=== PATIENT | female | born 1965 | race Caucasian/White ===

== ENCOUNTER 2020-07-22 21:11 | Emergency (ER) | payer BC, OTHER ==
[2020-07-22 22:27] LABS: Urine Blood 3+ (Negative); Urine Glucose Negative (Negative); Urine Protein 3+ (Negative); Urine Specific Gravity 1.025 (1.005-1.030)
[2020-07-22] MEDS ORDERED: CEFTRIAXONE/SWI 1gm 1 GM/10 ML SYR ONE (22:58)
[2020-07-22] MEDS ORDERED: MEPERIDINE HCL 25 MG/ML SYR ONE (22:58)
[2020-07-22 23:00] LABS: Urine RBC TNTC /HPF (NONE SEEN)
[2020-07-22 23:01] LABS: Urine Bacteria <20 /HPF (<20)
[2020-07-22 23:07] LABS: Absolute Lymphocytes (CBC) 1.5 K/uL (0.7-4.9); Basophils % 0.6 % (0-1.3); Hematocrit 38.6 % (36.0-45.0); Lymphocytes % 11.4 % (15.3-44.8); MPV 8.6 fL (7.6-11.3); RBC Red Blood Cell Count 4.91 M/uL (3.86-4.86)
[2020-07-22 23:13] LABS: Potassium 3.4 mmol/L (3.5-5.1)
--- NOTE | 2020-07-22 23:35 | EDPHYS ---
Physician Documentation [facility] Name: Esperanza Granger Age: 54 yrs Sex: Female : 1965 Arrival Date: 07/22/2020 Time: 21:12 Bed 5 Private MD: Ty Fuentes E ED Physician Abran Singh HPI: 07/22 23:30 This 54 yrs old Female presents to ER via Ambulatory with complaints of rn Urinary Problem. 23:30 The patient presents with urinary symptoms, dysuria, frequency, hematuria, urgency. rn Onset: The symptoms/episode began/occurred today. Modifying factors: The symptoms are alleviated by nothing, the symptoms are aggravated by urinating. Associated signs and symptoms: Pertinent positives: dysuria, hematuria, urinary frequency, Pertinent negatives: fever. Severity of symptoms: At their worst the symptoms were moderate, in the emergency department the symptoms are unchanged. The patient has experienced similar episodes in the past. The patient has not recently seen a physician. Denies trauma, not on blood thinners, no hx of kidney stones.. 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 Flu vaccine is not up to date. - Social history:: Smoking status: Patient denies any tobacco usage or history of. - Family history:: not pertinent. - Hospitalizations: : No recent hospitalization is reported. ROS: 23:30 Positive for urinary symptoms, urinary frequency, hematuria, burning with urination, rn Negative for bladder incontinence. 23:30 Constitutional: Negative for fever, chills, and weight loss, Eyes: Negative for injury, pain, redness, and discharge, Neck: Negative for injury, pain, and swelling, Cardiovascular: Negative for chest pain, palpitations, and edema, Respiratory: Negative for shortness of breath, cough, wheezing, and pleuritic chest pain, Abdomen/GI: + suprapubic pain, neg for vomiting Back: + low back pain MS/Extremity: Negative for injury and deformity, Skin: Negative for injury, rash, and discoloration, Neuro: Negative for headache, weakness, numbness, tingling, and seizure. Exam: 23:30 Constitutional: This is a well developed, well nourished patient who is awake, alert, rn mild discomfort Head/Face: Normocephalic, atraumatic. Cardiovascular: Regular rate and rhythm. No pulse deficits. Respiratory: No increased work of breathing, no retractions or nasal flaring. Abdomen/GI: soft, mild suprapubic tenderness, no rebound or masses Back: No spinal tenderness. No costovertebral tenderness. Full range of motion. Skin: Warm, dry MS/ Extremity: Pulses equal, no cyanosis. Neuro: Awake and alert, GCS 15, ambulatory to bathroom without assistance. Vital Signs: 21:29 BP 209 / 78; Pulse 84; Resp 16 S; Temp 98.5(TE); Pulse Ox 97% on R/A; Weight 104.78 kg ca1 (R); Height 5 ft. 3 in. (160.02 cm) (R); Pain 10/10; 07/23 00:09 BP 187 / 66; Pulse 80; Resp 18; Pulse Ox 98% ; ea 07/22 21:29 Body Mass Index 40.92 (104.78 kg, 160.02 cm) ca1 MDM: 07/22 22:21 Patient medically screened. rn 23:30 Differential diagnosis: kidney stone, urinary tract infection, pyelonephritis. Data rn reviewed: vital signs, nurses notes, lab test result(s), radiologic studies, CT scan, and as a result, I will discharge patient. Counseling: I had a detailed discussion with the patient and/or guardian regarding: the historical points, exam findings, and any diagnostic results supporting the discharge/admit diagnosis, lab results, radiology results, the need for outpatient follow up, to return to the emergency department if symptoms worsen or persist or if there are any questions or concerns that arise at home. Response to treatment: the patient's symptoms have mildly improved after treatment, and as a result, I will discharge patient. Special discussion: I discussed with the patient/guardian in detail that at this point there is no indication for admission to the hospital. It is understood, however, that if the symptoms persist or worsen the patient needs to return immediately for re-evaluation. 07/22 22:26 Order name: Urine Dipstick-Ancillary; Complete Time: 23:30 EDMS 07/22 22:26 Order name: Urine Culture rn 07/22 22:26 Order name: Urine Microscopic Only; Complete Time: 23:30 rn 07/22 22:26 Order name: CBC with Diff; Complete Time: 23:30 rn 07/22 22:26 Order name: Basic Metabolic Panel; Complete Time: 23:30 rn 07/22 22:26 Order name: Procalcitonin rn 07/22 22:26 Order name: Urine Dipstick-Ancillary (obtain specimen); Complete Time: 22:58 rn 07/22 22:26 Order name: IV Start; Complete Time: 22:54 rn 07/22 22:26 Order name: CT Stone Protocol rn 07/22 22:26 Order name: Blood Culture Adult (2) rn Administered Medications: 22:53 Drug: Rocephin (cefTRIAXone) 1 grams Route: IV; Rate: calculated rate; Site: right ea antecubital; 23:00 Follow up: Response: No adverse reaction; IV Status: Completed infusion ea 22:53 Drug: Demerol (meperidine) 25 mg Route: IVP; Site: right antecubital; ea 23:00 Follow up: Response: No adverse reaction 07/23 00:07 Drug: Demerol (meperidine) 25 mg Route: IVP; Site: right antecubital; ea 00:12 Follow up: Response: Medication administered at discharge. Disposition: 07/22/20 23:34 Discharged to Home. Impression: Urinary tract infection, site not specified, Cystitis, unspecified with hematuria. - Condition is Stable. - Discharge Instructions: Hematuria, Adult, Urinary Tract Infection, Adult. - Prescriptions for Pyridium 200 mg Oral Tablet - take 1 tablet by ORAL route every 8 hours for 3 days; 9 tablet. cefpodoxime 100 mg Oral Tablet - take 2 tablet by ORAL route every 12 hours for 10 days take with food; 40 tablet. - Medication Reconciliation Form, Thank You Letter, Antibiotic Education, Prescription Opioid Use, Work release form form. - Follow up: Private Physician; When: As needed; Reason: Recheck today's complaints, Re-evaluation by your physician. - Problem is new. - Symptoms have improved. Signatures: Dispatcher [employer] EDMD Abran Singh MD MD rn Antunez, Elena, RN RN ea Acob, Cheryl RN RN ca1 Corrections: (The following items were deleted from the chart) 00:12 07/22 23:34 07/22/2020 23:34 Discharged to Home. Impression: Urinary tract infection, ea site not specified; Cystitis, unspecified with hematuria. Condition is Stable. Forms are Medication Reconciliation Form, Thank You Letter, Antibiotic Education, Prescription Opioid Use. Follow up: Private Physician; When: As needed; Reason: Recheck today's complaints, Re-evaluation by your physician. Problem is new. Symptoms have improved. rn
--- NOTE | 2020-07-22 23:35 | ER ---
Nurse's Notes [facility] Name: Esperanza Granger Age: 54 yrs Sex: Female : 1965 Arrival Date: 07/22/2020 Time: 21:12 Bed 5 Private MD: Ty Fuentes E Diagnosis: Urinary tract infection, site not specified;Cystitis, unspecified with hematuria Presentation: 07/22 21:29 Chief complaint: Patient states: Suprapubic pain started around 1500 today. Burning ca1 with urination, urgency and frequency. In the evening, R lower back pain with blood in the urine. Coronavirus screen: Client denies travel out of the [place] in the last 14 days. At this time, the client does not indicate any symptoms associated with coronavirus-19. Ebola Screen: Patient negative for fever greater than or equal to 101.5 degrees Fahrenheit, and additional compatible Ebola Virus Disease symptoms Patient denies exposure to infectious person. Patient denies travel to an Ebola-affected area in the 21 days before illness onset. No symptoms or risks identified at this time. Initial Sepsis Screen: Does the patient meet any 2 criteria? No. Patient's initial sepsis screen is negative. Does the patient have a suspected source of infection? No. Patient's initial sepsis screen is negative. Risk Assessment: Do you want to hurt yourself or someone else? Patient reports no desire to harm self or others. Onset of symptoms was July 22, 2020. 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 Flu vaccine is not up to date. - Social history:: Smoking status: Patient denies any tobacco usage or history of. - Family history:: not pertinent. - Hospitalizations: : No recent hospitalization is reported. Screenin:54 Abuse screen: Denies threats or abuse. Nutritional screening: No deficits noted. ea Tuberculosis screening: No symptoms or risk factors identified. Fall Risk IV access (20 points). Assessment: 22:50 General: Appears uncomfortable, Behavior is calm, cooperative, appropriate for age. ea Pain:. Neuro: Level of Consciousness is awake, alert, obeys commands, Oriented to person, place, time. Cardiovascular: Patient's skin is warm and dry. Respiratory: Airway is patent Respiratory effort is even, unlabored, Respiratory pattern is regular, symmetrical. Derm: Skin is pink, warm \T\ dry. 07/23 00:11 Reassessment: Patient and/or family updated on plan of care and expected duration. Pain ea level reassessed. Patient is alert, oriented x 3, equal unlabored respirations, skin warm/dry/pink. Discharge instruction given to patient verbalized the understanding of instruction. Pt left ED ambulatory accompanied by family. Vital Signs: 07/22 21:29 BP 209 / 78; Pulse 84; Resp 16 S; Temp 98.5(TE); Pulse Ox 97% on R/A; Weight 104.78 kg ca1 (R); Height 5 ft. 3 in. (160.02 cm) (R); Pain 10/10; 07/23 00:09 BP 187 / 66; Pulse 80; Resp 18; Pulse Ox 98% ; ea 07/22 21:29 Body Mass Index 40.92 (104.78 kg, 160.02 cm) ca1 ED Course: 07/22 21:12 Patient arrived in ED. am4 21:13 Ty Fuentes MD is Private Physician. am4 21:32 Triage completed. ca1 21:33 Arm band placed on right wrist. ca1 22:21 Abran Singh MD is Attending Physician. rn 22:29 Mikki Medina RN is Primary Nurse. ea 22:45 Inserted saline lock: 20 gauge in right antecubital area, using aseptic technique. ea Blood collected. 22:50 Patient has correct armband on for positive identification. Bed in low position. Call ea light in reach. Side rails up X2. 23:05 CT Stone Protocol In Process Unspecified. EDMS 07/23 00:09 No provider procedures requiring assistance completed. IV discontinued, intact, ea bleeding controlled, No redness/swelling at site. Pressure dressing applied. Administered Medications: 07/22 22:53 Drug: Rocephin (cefTRIAXone) 1 grams Route: IV; Rate: calculated rate; Site: right ea antecubital; 23:00 Follow up: Response: No adverse reaction; IV Status: Completed infusion ea 22:53 Drug: Demerol (meperidine) 25 mg Route: IVP; Site: right antecubital; ea 23:00 Follow up: Response: No adverse reaction ea 07/23 00:07 Drug: Demerol (meperidine) 25 mg Route: IVP; Site: right antecubital; ea 00:12 Follow up: Response: Medication administered at discharge. ea Outcome: 07/22 23:34 Discharge ordered by . rn 07/23 00:10 Discharged to home ambulatory, with family. ea Condition: stable Discharge instructions given to patient, Instructed on discharge instructions, follow up and referral plans. medication usage, Demonstrated understanding of instructions, follow-up care, medications, Prescriptions given X 2. 00:12 Patient left the ED. ea Addendum: 07/26/2020 14:48 Addendum: Culture Results: Positive urine culture. Phone call Attempt #1 no answer, no h b voicemail. Signatures: Dispatcher [employer] EDAbran Pham MD MD rn Baxter, Heather RN Mikki Yeager RN Berenice Shane ea RN Stephenie Brown
[2020-07-23] MEDS ORDERED: MEPERIDINE HCL 25 MG/ML SYR ONE (00:24)
[2020-07-23 00:46] VITALS: TEMP 98.5
[2020-07-23 00:47] VITALS: BP 187/66; O2SAT 98
--- NOTE | 2020-07-23 10:42 | RAD REPORT ---
EXAM DESCRIPTION: CT - Stone Protocol - 07/23/2020 6:50 am CLINICAL HISTORY: 54 years Female UTI, hematuria, flank pain COMPARISON: None TECHNIQUE: Images were obtained in axial, sagittal, and coronal planes. This exam was performed according to our departmental dose-optimization program which includes use of Automated Exposure Control, adjustment of the mA and/or kV according to patient size and/or use o f iterative reconstruction technique. FINDINGS: Enlarged liver. Spleen is prominent in size measuring 12.4 cm in anterior posterior dimens ion. Unremarkable pancreas and adrenal glands bilaterally. No obstructing renal or ureteral calculi bilaterally. No hydronephrosis bilaterally. Right renal cyst . Punctate nonobstructing calcifications kidneys bilaterally. Incomplete bladder distention. Associat ed mucosal thickening and indistinct bladder margins. Consider cystitis. Appendix within normal limits. No bowel obstruction, perforation, or inflammation. Chronic changes lower lungs bilaterally. Enlarged heart. Diffuse bulging T11-12 osteophyte disc complex with associated mild narrowing of spinal canal. IMPRESSION: Punctate nonobstructing calcifications kidneys bilaterally with no hydronephrosis seen. No obstructing renal or ureteral calculi bilaterally. Incompletely bladder distention with associated mucosal thickening and indistinct margins suggesting cystitis. Electronically signed by: Heidi Ferguson MD 07/22/2020 11:19 PM CDT Due to temporary technical issues with the PACS/Fluency reporting system, reports are being signed by the in house radiologist without review as a courtesy to ensure prompt reporting. The interpreting r adiologist is fully responsible for the content of the report.
== END 2020-07-23 00:12 | disposition home or self-care (01) ==
LOC: ER 21:11
DX: N30.01 Acute cystitis with hematuria (principal)
CPT/HCPCS: 87040 ×2; 87088; 85025; 87086; 80048; 36415; 87077; 87186; 84145; 76377; 74176; 96375; 96374; 99284; J2175 ×2; J0696; 81003; 81015

== ENCOUNTER 2024-01-24 13:00 | Emergency (ER) | payer BC ==
--- OUTSIDE RECORDS SUMMARY | 2024-01-24 13:03 | XMS REPORT | Continuity of Care Document ---
Author Name Unknown Address [address] [facility] [address]. [address] [place] [address] [facility] thconnect Address [address] [facility]. 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 Name Role Phone Ty Leach Primary Care Physician [phone] KEENA GARCIA Attending Clinician Unavailable Haven Shelby RN Attending Clinician UnavailNabila Wan MD Attending Clinician [phone]- [phone] NABILA METZ Attending Clinician Vilma manning Nurse, Timothy Carrion [facility] Attending Clinician Unavailable 1, Se Xr Attending Clinician Unavailable Lu Honeycutt RN Attending Clinician Unavailable 2, Se Nm Attending Clinician Unavailable Keena Garcia MD Attending Clinician [phone] Doctor Unassigned, [place] Attending Clinician U navailable Therapy, Pcp Covid Infusion Attending Clinician Unavailable Tremayne Campoverde MD Attending Clinician TREMAYNE CAMPOVERDE Attending Clinician Unavailable Yolanda Phillips Attending Clinician Unavailable NABILA METZ Admitting Clinician Vilma Metz MD, Nabila Govea Admitting Clinician [phone] Yolanda Phillips Admitting Clinician Unavailable Physician, No Primary or Family Admitting Clinic pau Unavailable Payers Payer Name Policy Type Policy Number Effective Date Expirati on Date Source BCBS COMM [id number] 2023 00:00:00 Problems Condition Name Condition Details Condition Category Status Onset Date Resolution Date Last Treatment Date Treating Clinician Comments Source HTN (hypertens ion) HTN (hypertens ion) Disease Active 2023-02 00:00: 00 Izaiah Guan Pacemaker Pacemaker Disease Active 2023-02 00:00: 00 Izaiah Guan Renal cell carcinoma of right kidney Renal cell carcinoma of right kidney Disease Active 2023-02 00:00: 00 Izaiah Elizondo Epic Malignant neoplasm of right kidney Malignant neoplasm of right kidney Disease Active 2023-02 00:00: 00 Izaiah Guan Allergies, Adverse Reactions, Alerts Allergy Name Allergy Type Status Severity Reaction(s) Onset Date Inactive Date Treating Clinician Comments Source Oxycodon e-Acetam inophen Propensi ty to adverse reaction s Active 2023-02 00:00: 00 Makes pt sick Izaiah Guan No Known Drug Allergie s DA Active U 08-02 00:00: 00 [facility] No Known Drug Allergie s DA Active U 08-02 00:00: 00 [facility] NO KNOWN ALLERGIE S Drug Class Active [facility] ALLERGIE S NOT ON FILE SYSTEMIC Active [facility] ALLERGIE S NOT ON FILE SYSTEMIC Active [facility] NO KNOWN ALLERGIE S SYSTEMIC Active [facility] NO KNOWN ALLERGIE S SYSTEMIC Active [facility] NO KNOWN ALLERGIE S SYSTEMIC Active [facility] Social History Social Habit Start Date Stop Date Quantity Comments Source Gender identity 2023-10-03 14:30:44 Identifies as female gender (finding) Sylwia Guan ASSERTION Possible Sylwia Guan [facility] History of Social function 2023-12-28 00:00:00 2023-12-28 00:00:00 [facility] Alcoholic beverage intake 2023-12-04 00:00:00 2023-12-04 00:00:00 Ex-drinker (finding) [facility] Tobacco use and exposure 2023-11-08 00:00:00 2023-11-08 00:00:00 Smokeless tobacco non-user [facility] Sex Ass[birth year] At 1965 00:00:00 1965 00:00:00 [facility] Smoking Status Start Date Stop Date Source Unknown [facility] tobacco Izaiah [facility] Medications Ordered Medication Name Filled Medication Name Start Date Stop Date Current Medication? Ordering Clinician Indication Dosage Frequency Signature (SIG) Comments Components Source lidocaine (Lidoderm) 5 % patch lidocaine (Lidoderm) 5 % patch 2023-02 00:00: 00 Yes 1{patch } QD Apply 1 patch over 12 hours topically 1 time each day. Remove & discard patch within 12 hours or as directed by . Izaiah Eliz[facility] naloxone (Narcan) 4 mg/0.1 mL nasal spray naloxone (Narcan) 4 mg/0.1 mL nasal spray 2023-02 00:00: 00 01-04 23:59 :00 No 4mg Administer 1 spray into affected nostril(s) if needed for opioid reversal. May repeat every 2-3 minutes if needed, alternatin g nostrils, until medical assistance becomes available. Izaiah Eliz[facility] methocarbam ol (Robaxin) 750 MG tablet methocarbam ol (Robaxin) 750 MG tablet 2023-02 00:00: 00 01-18 23:59 :00 No 750mg [id number] 3D Take 1 tablet by mouth 3 times a day as needed for muscle spasms for up to 14 days. Tale one tablet 3 hours prior to surgery Izaiah Eliz[facility] HYDROcodone -acetaminop hen ([place]) 5-325 MG tablet HYDROcodone -acetaminop hen ([place]) 5-325 MG tablet 2023-02 00:00: 00 01-11 23:59 :00 No [id number] 1{tbl} Q6H Take 1 tablet by mouth every 6 hours if needed for severe pain (7-10) for up to 7 days. Izaiah Guan acetaminoph en (Tylenol) 500 MG tablet acetaminoph en (Tylenol) 500 MG tablet 2023-02 12:13: 29 Yes 1000mg Take 1,000 mg by mouth 1 time. Take morning of surgery Izaiah Guan gabapentin (Neurontin) capsule 200 mg gabapentin (Neurontin) capsule 200 mg 2023-02 09:00: 00 Yes 200mg Q.5D 200 mg, Oral, 2 times daily, First dose on Jeannette 12/28/23 at 0900 Izaiah Guan amLODIPine (Norvasc) tablet 10 mg amLODIPine (Norvasc) tablet 10 mg 2023-02 09:00: 00 Yes 10mg QD 10 mg, Oral, Daily, First dose on Jeannette 12/28/23 at 0900, On Unit Izaiah Guan alvimopan (Entereg) capsule 12 mg alvimopan (Entereg) capsule 12 mg 2023-02 09:00: 00 12-27 12:49 :57 No 12mg Q.5D 12 mg, Oral, 2 times daily, First dose on Jeannette 12/28/23 at 0900, For 3 days, On Unit, HOLD WHEN RETURN OF BOWEL FUNCTION Izaiah Guan traMADol (Ultram) tablet 50 mg traMADol (Ultram) tablet 50 mg 2023-02 08:26: 33 12-30 08:25 :33 No 50mg Q6H 50 mg, Oral, Every 6 hours PRN, severe pain (7-10), Starting on Jeannette 12/28/23 at 0826, For 3 days Izaiah Guan traMADol (Ultram) 50 MG tablet traMADol (Ultram) 50 MG tablet 2023-02 00:00: 00 Yes [id number] 50mg Q4H Take 1 tablet by mouth every 4 hours if needed for severe pain (7-10). Izaiah Guan Docusate Sodium (DSS) 100 MG capsule Docusate Sodium (DSS) 100 MG capsule 2023-02 00:00: 00 02-25 23:59 :00 No 100mg Q.5D Take 1 capsule by mouth in the morning and 1 capsule in the evening. Izaiah Guan atorvastati n (Lipitor) tablet 20 mg atorvastati n (Lipitor) tablet 20 mg 2023-02 21:00: 00 Yes 20mg 20 mg, Oral, Nightly, First dose on Mon12/27/23 at 2100, [facility] docusate sodium (Colace) capsule 100 mg docusate sodium (Colace) capsule 100 mg 2023-02 17:00: 00 Yes 100mg Q.5D 100 mg, Oral, 2 times daily, First dose on Mon12/27/23 at 1700, [facility] sennosides (Senokot) tablet 8.6 mg sennosides (Senokot) tablet 8.6 mg 2023-02 17:00: 00 01-02 16:59 :00 No 1{tbl} Q.5D 8.6 mg (1 tablet), Oral, 2 times daily, First dose on Mon12/27/23 at 1700, For 7 days, On Unit Izaiah Guan ceFAZolin (Ancef) 2 g in sterile water injection ceFAZolin (Ancef) 2 g in sterile water injection 2023-02 17:00: 00 12-27 08:48 :00 No 2g Q8H 2 g, Intravenou s, at 200 mL/hr, Administer over 6 Minutes, Every 8 hours, First dose (after last modificati on) on Mon12/27/23 at 1700, For 3 doses, Reconstitu te each vial with 10 mL sterile water for injection. (20 mL total needed) Prepare dose at bedside immediatel y prior to administra tion. Reconstitu tion: Shake immediatel y and vigorously . Withdraw entire contents of the 1st vial and give IV push slowly over specified time. Withdraw entire contents of the 2nd vial and give IV push slowly over specified time., Suspected Indication (Select all that apply): Surgical Prophylaxi s Izaiah Guan dextrose 10 % infusion 250 mL dextrose 10 % infusion 250 mL 2023-02 14:17: 43 Yes 250mL 250 mL, Intravenou s, at 999 mL/hr, As needed, Give 250 mL (25 gm) IV PRN for BG </= 50 mg/dL, Starting on Mon12/27/23 at 1417, Administer at rate 999 mL/hr Izaiah Guan sodium chloride (NS) 0.9 % flush 10 mL sodium chloride (NS) 0.9 % flush 10 mL 2023-02 14:13: 46 Yes 10mL 10 mL, Intravenou s, As needed, line care, For antibiotic flush to clear line, Starting on Mon12/27/23 at 1413, Changed NS 250 mL to NS flush per IV Fluid Conservati on Plan Izaiah Elizondo Epic heparin injection 5,000 Units heparin injection 5,000 Units 2023-02 14:00: 00 Yes 5000U Q.[id number] 3D 5,000 Units, Subcutaneo us, Every 8 hours scheduled, First dose on Mon12/27/23 at 1400, On Unit, Indication s: VTE Prophylaxi s Izaiah Guan gabapentin (Neurontin) capsule 300 mg gabapentin (Neurontin) capsule 300 mg 2023-02 14:00: 00 12-27 06:52 :18 No 300mg Q.[id number] 3D 300 mg, Oral, Every 8 hours scheduled, First dose on Mon12/27/23 at 1400, On Unit Izaiah Elizondo Epic acetaminoph en (Tylenol) solution 1,000 mg acetaminoph en (Tylenol) solution 1,000 mg 2023-02 13:15: 00 Yes 1000mg Q6H 1,000 mg, Oral, Every 6 hours, First dose on Mon12/27/23 at 1315, On Unit Izaiah Elizondo Epic sodium chloride (NS) 0.9 % flush 10 mL sodium chloride (NS) 0.9 % flush 10 mL 2023-02 13:15: 00 Yes 10mL Q12H 10 mL, Intravenou s, Every 12 hours, First dose on Mon12/27/23 at 1315, Phase II/On Unit, Administer at least once every 12 hours Izaiah Guan lactated Ringer's infusion lactated Ringer's infusion 2023-02 13:15: 00 Yes 100mL/h 100 mL/hr, Intravenou s, Continuous , Starting on Mon12/27/23 at 1315, [facility] oxybutynin (Ditropan) tablet 5 mg oxybutynin (Ditropan) tablet 5 mg 2023-02 13:15: 00 12-27 08:27 :25 No 5mg Q.[id number] 3D 5 mg, Oral, 3 times daily, First dose on Mon12/27/23 at 1315, [facility] hydrALAZINE injection 10 mg hydrALAZINE injection 10 mg 2023-02 13:10: 51 Yes 10mg Q4H [facility] hyoscyamine (Anaspaz,Le vsin) tablet 0.125 mg hyoscyamine (Anaspaz,Le vsin) tablet 0.125 mg 2023-02 13:10: 51 Yes .125mg Q4H [facility] glucagon injection 1 mg glucagon injection 1 mg 2023-02 13:10: 51 Yes 1mg [facility] sodium chloride (NS) 0.9 % flush 10 mL sodium chloride (NS) 0.9 % flush 10 mL 2023-02 13:10: 51 Yes 10mL [facility] HYDROmorpho ne (Dilaudid) injection 0.5 mg HYDROmorpho ne (Dilaudid) injection 0.5 mg 2023-02 11:08: 01 12-26 14:06 :32 No .5mg 0.5 mg, Intravenou s, Every 10 min PRN, severe pain (7-10), Starting on Mon12/27/23 at 1108, For 4 doses, Recovery (only), Hold for respirator y rate or 8 or less. [facility] lactated Ringer's infusion lactated Ringer's infusion 2023-02 07:15: 00 Yes 75mL/h 75 mL/hr, Intravenou s, Continuous , Starting on Mon12/27/23 at 0715, Preprocedu re, Anesthesia Pre-op Izaiah Guan methocarbam ol (Robaxin) 750 MG tablet methocarbam ol (Robaxin) 750 MG tablet 2023-02 00:00: 00 12-27 00:00 :00 No 750mg Take 1 tablet by mouth 1 time for 1 dose. Take 1 tablet 3 hours before surgery Izaiah Guan gabapentin (Neurontin) 600 MG tablet gabapentin (Neurontin) 600 MG tablet 2023-02 00:00: 00 12-27 00:00 :00 No 600mg QD Take 1 tablet by mouth 1 time each day for 1 dose. Take 1 tablet 3 hours before surgery Izaiah Guan celecoxib (CeleBREX) 200 MG capsule celecoxib (CeleBREX) 200 MG capsule 2023-02 00:00: 00 12-20 00:00 :00 No 200mg Take 1 capsule by mouth 1 time for 1 dose. Take 1 tablet 3 hours before surgery Izaiah Guan neomycin (Mycifradin ) 500 MG tablet neomycin (Mycifradin ) 500 MG tablet 2023-02 00:00: 00 12-18 23:59 :00 No 1000mg Q.[id number] 3D Take 2 tablets by mouth in the morning and 2 tablets at noon and 2 tablets in the evening. Do all this for 3 doses. Take 2 tablets at 4pm, 5pm and 10pm the day before surgery. Izaiah Guan metroNIDAZO LE (Flagyl) 500 MG tablet metroNIDAZO LE (Flagyl) 500 MG tablet 2023-02 00:00: 00 12-18 23:59 :00 No 500mg Q.[id number] 3D Take 1 tablet by mouth in the morning and 1 tablet at noon and 1 tablet in the evening. Do all this for 3 doses. Take 1 tablet at 4pm, 5pm and 10pm the day before before surgery.. Izaiah Guan technetium Tc-99m mertiatide (MAG3) radio-isoto pe injection 5 millicurie technetium Tc-99m mertiatide (MAG3) radio-isoto pe injection 5 millicurie 2023-02 12:30: 00 12-10 13:27 :00 No 5mCi 5 millicurie , Intravenou s, Once, On Mon12/11/23 at 1230, For 1 dose Izaiah Guan clobetasol (Temovate) 0.05 % cream clobetasol (Temovate) 0.05 % cream 11-01 00:00: 00 12-20 00:00 :00 No APPLY TOPICALLY TO THE AFFECTED AREA DAILY NEEDED Izaiah Guan lisinopril- hydroCHLORO thiazide 20-12.5 MG tablet lisinopril- hydroCHLORO thiazide 20-12.5 MG tablet 09-10 00:00: 00 12-27 00:00 :00 No 1{tbl} QD Take 1 tablet by mouth 1 time each day. Izaiah Guan Mounjaro 10 MG/0.5ML pen-injecto r Mounjaro 10 MG/0.5ML pen-injecto r 09-01 00:00: 00 Yes 10mg Q1W Inject 10 mg under the skin every 7 days. EVERY MONDAY Izaiah Guan Mounjaro 10 MG/0.5ML pen-injecto r Mounjaro 10 MG/0.5ML pen-injecto r 09-01 00:00: 00 12-20 00:00 :00 No Izaiah Guan casirivimab -imdevimab (REGEN-COV (EUA)) injection 1,200 mg 2020-02 17:30: 00 11-21 16:24 :00 No [id number] 1200mg [facility] amLODIPine (Norvasc) 10 MG tablet amLODIPine (Norvasc) 10 MG tablet 09-01 00:00: 00 Yes 1{tbl} QD Take 1 tablet by mouth 1 time each day. Izaiah Guan atorvastati n (Lipitor) 20 MG tablet atorvastati n (Lipitor) 20 MG tablet 09-01 00:00: 00 Yes 20mg QD Take 20 mg by mouth 1 time each day. Izaiah l Mikhail Epic Vital Signs Vital Name Observation Time Observation Value Comments Alisha meredith Systolic blood pressure 2024-01-05 09:41:00 137 mm[Hg] [facility] Diastolic blood pressure 2024-01-05 09:41:00 85 mm[Hg] [facility] Epic Heart rate 2024-01-05 09:41:00 75 /min Memor ial Mikhail Epic Body height 2024-01-05 09:41:00 160 cm Inocente rial Mikhail Epic Body weight 2024-01-05 09:41:00 94.348 kg Inocente rial [place] Epic BMI 2024-01-05 09:41:00 36.85 kg/m2 Inocente rial Mikhail Epic Oxygen saturation in Arterial blood by Pulse oximetry 2024-01-05 09:41:00 94 /min [facility] Systolic blood pressure 2024-01-05 09:41:00 137 mm[Hg] [facility] Diastolic blood pressure 2024-01-05 09:41:00 85 mm[Hg] [facility] Heart rate 2024-01-05 09:41:00 75 /min [facility] Body height 2024-01-05 09:41:00 160 cm Inocente riaalek [place] Epic Body weight 2024-01-05 09:41:00 94.348 kg Inocente Kunzann Epic BMI 2024-01-05 09:41:00 36.85 kg/m2 Inocente Kunzann Epic Oxygen saturation in Arterial blood by Pulse oximetry 2024-01-05 09:41:00 94 /min [facility] Heart rate 2023-12-28 07:40:16 61 /min Memor ial Mikhail Epic Respiratory rate 2023-12-28 07:40:16 17 /min [facility] Oxygen saturation in Arterial blood by Pulse oximetry 2023-12-28 07:40:16 94 /min [facility] Systolic blood pressure 2023-12-28 07:40:12 128 mm[Hg] [facility] Diastolic blood pressure 2023-12-28 07:40:12 52 mm[Hg] [facility] Body temperature 2023-12-28 07:38:58 36.61 Eloisa [facility] Heart rate 2023-12-28 07:40:16 61 /min Memor ial Mikhail Epic Respiratory rate 2023-12-28 07:40:16 17 /min [facility] Mikhail Epic Oxygen saturation in Arterial blood by Pulse oximetry 2023-12-28 07:40:16 94 /min Sylwia jones Epic Systolic blood pressure 2023-12-28 07:40:12 128 mm[Hg] Sylwia jones Epic Diastolic blood pressure 2023-12-28 07:40:12 52 mm[Hg] Sylwia jones Epic Body temperature 2023-12-28 07:38:58 36.61 Eloisa [facility] Epic Systolic blood pressure 2023-12-22 10:44:00 115 mm[Hg] [facility] Her jones Epic Diastolic blood pressure 2023-12-22 10:44:00 74 mm[Hg] [facility] Epic Heart rate 2023-12-22 10:44:00 72 /min Memor ial Mikhail Epic Body height 2023-12-22 10:44:00 160 cm Inocente rial Mikhail Epic Body weight 2023-12-22 10:44:00 92.08 kg Inocente rial Mikhail Epic BMI 2023-12-22 10:44:00 35.96 kg/m2 Inocente rial [place] Epic Systolic blood pressure 2023-12-22 10:44:00 115 mm[Hg] [facility] Her jones Epic Diastolic blood pressure 2023-12-22 10:44:00 74 mm[Hg] [facility] Her jones Epic Heart rate 2023-12-22 10:44:00 72 /min Memor ial Mikhail Epic Body height 2023-12-22 10:44:00 160 cm Inocente rial [place] Epic Body weight 2023-12-22 10:44:00 92.08 kg Inocente rial [place] Epic BMI 2023-12-22 10:44:00 35.96 kg/m2 Inocente rial Mikhail Epic Body height 2023-12-04 09:22:00 160 cm Inocente rial Mikhail Epic Body weight 2023-12-04 09:22:00 94.484 kg Inocente rial [place] Epic BMI 2023-12-04 09:22:00 36.90 kg/m2 Inocente rial [place] Epic Body height 2023-12-04 09:22:00 160 cm Inocente rial Mikhail Epic Body weight 2023-12-04 09:22:00 94.484 kg Inocente birgitl [facility] BMI 2023-12-04 09:22:00 36.90 kg/m2 Inocente laurie [facility] Body height 2023-11-08 11:39:00 160 cm Inocentesteff sullivan [facility] Body weight 2023-11-08 11:39:00 92.534 kg Inocentesteff sullivan [facility] BMI 2023-11-08 11:39:00 36.14 kg/m2 Inocente laurie [facility] Body height 2023-11-08 11:39:00 160 cm Inocente laurie [facility] Body weight 2023-11-08 11:39:00 92.534 kg Inocente [facility] BMI 2023-11-08 11:39:00 36.14 kg/m2 Inocente [facility] Diastolic blood pressure 2023-10-03 15:30:00 59 mm[Hg] [facility] Heart rate 2023-10-03 15:30:00 60 /min [facility] 2023-10-03 15:30:00 37.11 [facility] Respiratory rate 2023-10-03 15:30:00 17 /min [facility] Body height 2023-10-03 15:30:00 160 cm [facility] Body weight 2023-10-03 15:30:00 95.709 kg [facility] BMI 2023-10-03 15:30:00 37.38 kg/m2 [facility] Oxygen saturation in Arterial blood by Pulse oximetry 2023-10-03 15:30:00 98 /min [facility] Systolic blood pressure 2023-10-03 15:30:00 131 mm[Hg] [facility] Diastolic blood pressure 2023-10-03 15:30:00 59 mm[Hg] [facility] Heart rate 2023-10-03 15:30:00 60 /min Memor ial [facility] Body temperature 2023-10-03 15:30:00 37.11 [facility] Respiratory rate 2023-10-03 15:30:00 17 /min [facility] Body height 2023-10-03 15:30:00 160 cm [facility] Body weight 2023-10-03 15:30:00 95.709 kg [facility] BMI 2023-10-03 15:30:00 37.38 kg/m2 [facility] Oxygen saturation in Arterial blood by Pulse oximetry 2023-10-03 15:30:00 98 /min [facility] Systolic blood pressure 2023-10-03 15:30:00 131 mm[Hg] [facility] Systolic blood pressure 2020-11-21 16:42:00 105 mm[Hg] [facility] Diastolic blood pressure 2020-11-21 16:42:00 58 mm[Hg] [facility] Heart rate 2020-11-21 16:42:00 62 /min [facility] Body temperature 2020-11-21 16:42:00 37.17 Eloisa [facility] Oxygen saturation in Arterial blood by Pulse oximetry 2020-11-21 16:42:00 91 /min room [facility] Body height 2020-11-21 16:13:00 160 cm [facility] Body weight 2020-11-21 16:13:00 101.152 kg [facility] BMI 2020-11-21 16:13:00 39.50 kg/m2 [facility] Procedures Procedure Date / Time Performed Performing Clinician Source Comprehensive Metabolic Panel 2024-01-11 00:00:00 [facility] Complete Blood Count w/Diff and Platelet 2024-01-11 00:00:00 [facility] XR chest 2 views 2024-01-11 00:00:[address] [facility] [address] abdomen w and wo IV contrast 2024-01-11 00:00:00 [facility] NEPHRECTOMY, LAPAROSCOPIC 2024-01-02 08:30:00 Nabila Metz [facility] Complete Blood Count w/Diff and Platelet 2023-12-30 00:00:00 [facility] Basic Metabolic Panel 2023-12-30 00:00:00 [facility] BASIC METABOLIC PANEL 2023-12-28 05:43:00 [place], G angelica [facility] COMPLETE BLOOD COUNT W/DIFF AND PLATELET 2023-12-28 05:43:00 [facility] 2023-12-28 05:43:00 [facility] AUTOM[facility] DIFFERENTIAL 2023-12-28 05:43:00 [facility] BASIC METABOLIC PANEL 2023-12-27 15:54:00 Clay Metz [facility] HEMOGLOBIN AND HEMATOCRIT 2023-12-27 15:54:00 [facility] NEPHRECTOMY, LAPAROSCOPIC 2023-12-27 08:30:00 Nabila Metz [facility] NEPHRECTOMY, LAPAROSCOPIC 2023-12-27 08:30:00 Nabila Metz [facility] NEPHRECTOMY, LAPAROSCOPIC 2023-12-27 08:30:00 Nabila Metz [facility] NEPHRECTOMY, LAPAROSCOPIC 2023-12-27 08:30:00 [facility]PHRECTOMY, LAPAROSCOPIC 2023-12-27 08:30:00 [facility] NEPHRECTOMY, LAPAROSCOPIC 2023-12-27 08:30:00 [facility] LAPAROSCOPY RADICAL NEPHRECTOMY 2023-12-27 08:28:00 [facility] POC GLUCOSE UNSOLICITED RESULTS 2023-12-27 07:26:00 [facility] CHEST 2 VIEWS 2023-12-20 11:44:48 Nabila Metz [facility] NM kidney flow/function w diuretic 2023-12-11 00:00:00 [facility] NM kidney flow/function w diuretic 2023-12-04 00:00:00 [facility] Creatinine, Serum 2023-10-03 00:00:[address] [facility] Basic metabolic panel 2023-10-03 00:00:00 [facility] CBC and differential 2023-10-03 00:00:00 [facility] EXTERNAL PROVIDER RECORDS 2020-12-11 05:01:00 Doctor Unassigned, [place] [facility] CONSENT/REFUSAL FOR DIAGNOSIS AND TREATMENT 2020-11-21 05:01:00 Doctor Unassigned, [place] [facility] Tissue Examination [facility] Plan of Care Planned Activity Planned Date Details Comments Source Procedure 2024-01-26 00:00:00 POCT glucose [facility] Encounters Start Date/Time End Date/Time Encounter Type Admission Type Attending [facility] Care Facility Care Department Encounter ID Source 2023-11-16 09:33:22 Outpatient KEENA GARCIASE NEAL [id number] [facility] 2023 08:44:29 Outpatient KEENA GARCIASE NEAL [id number] [facility] 2023-12-18 00:00:00 2024-01-18 23:48:26 Orders Only [place] Shelby Michelle [place] [id number] Izaiah gaston [facility] 2024-01-11 11:30:00 2024-01-11 11:30:00 Office Visit Nabila Mezt [facility] [id number] Izaiah gaston [facility] 2024-01-11 11:17:21 2024-01-11 11:25:35 [id number] 2024-01-05 09:32:31 2024-01-05 10:01:22 [id number] 2024-01-05 09:40:00 2024-01-05 09:50:00 Office Visit Nabila Metz [id number] [facility] 2024-01-02 00:00:00 2024-01-03 15:49:05 Telephone Nabila Mezt [place] [id number] Izaiah Eliz[facility] 2023-12-27 06:28:00 2023-12-28 14:05:00 Inpatient Elective NABILA METZ MHESE MHESE [id number] [facility] 2023-12-27 06:28:00 2023-12-28 14:05:00 Hospital Encounter Nabila Metz [facility] 1.2.840.114 350.1.13.70 8.2.7.2.686 [id number] [facility] 10:45:51 2023-12-22 16:38:14 Outpatient MHEOUT M[facility]OUT [id number] [facility] 2023-12-22 10:36:17 2023-12-22 16:28:48 Outpatient NABILA METZ [facility] M[facility]OUT [id number] [facility] 2023-12-22 11:30:00 2023-12-22 11:40:00 Clinical Support Haven Shelby Nurse, [facility] Haven Shelby [place] [id number] 1.2.840.114 350.1.13.70 8.2.7.2.686 [id number] [facility]-22 10:50:00 2023-12-22 11:00:00 Office Visit Nabila Metz [facility] [id number] 1.2.840.114 350.1.13.70 8.2.7.2.686 [id number] [facility]23-12-20 11:33:14 2023-12-20 23:59:00 Outpatient Elective MHESE MHESE [id number] [facility] 2023-12-20 11:33:14 2023-12-20 23:59:00 Hospital Encounter 1, Se Xr [facility] 1.2.840.114 350.1.13.70 8.2.7.2.686 [id number] [facility] 2023-12-20 09:33:37 2023-12-20 13:18:29 Outpatient Elective MHESE ESE [id number] ESE 2023-12-18 00:00:00 2023-12-20 10:46:50 Telephone Nabila [facility] [id number] 1.2.840.114 350.1.13.70 8.2.7.2.686 [id number] [facility] 2023-12-20 00:00:00 2023-12-20 10:13:23 [facility] 1.2.840.114 350.1.13.70 8.2.7.2.686 [id number] [facility] 2023-12-11 10:55:09 2023-12-11 23:59:00 Outpatient Elective MHESE ESE [id number] [facility] 2023-12-11 10:55:09 2023-12-11 23:59:00 Hospital Encounter 2, Se Nm [facility] 1.2.840.114 350.1.13.70 8.2.7.2.686 [id number] Izaiah gaston [facility] 2023-11-17 00:00:00 2023-12-05 10:51:13 Telephone Keena Garcia [facility] 250 1.2.840.114 350.1.13.70 8.2.7.2.686 [id number] [facility] 2023-12-04 09:09:37 2023-12-04 10:09:54 Outpatient KEENA GARCIA EMELYN EOUT [id number] [facility] 2023-12-04 09:17:40 2023-12-04 10:07:48 Outpatient Elective NABILA METZ EOUT MHEOUT [id number] [facility] 2023-12-04 09:00:00 2023-12-04 10:07:48 Office Visit Nabila Metz [id number] 1.2.840.114 350.1.13.70 8.2.7.2.686 [id number] [facility] 2023-12-04 09:30:00 2023-12-04 09:40:00 Office Visit Keena Garcialand [address] 1.2.840.114 350.1.13.70 8.2.7.2.686 [id number] [facility] 2023-11-23 07:30:00 2023-11-23 13:39:00 Outpatient KEENA GARCIA NEAL [id number] [facility] 2023-11-08 11:00:00 2023-11-08 12:22:09 Office Visit RadhaKeena [place] [id number] 1.2.840.114 350.1.13.70 8.2.7.2.686 [id number] [facility] 2023-11-08 10:53:50 2023-11-08 12:22:09 [facility] [id number] [facility] 2023-10-31 10:30:00 2023-10-31 23:59:00 Outpatient KEENA GARCIA [facility] URO [id number] [facility] 2023-10-24 14:49:00 2023-10-24 23:59:00 Outpatient KEENA GARCIA [facility] NEAL [id number] [facility] 2023-10-03 14:45:29 2023-10-03 23:59:00 Outpatient Elective RAD[facility] [id number] [facility] 2023-10-03 15:00:00 2023-10-03 15:15:00 Office Visit [place] [id number] 1.2.840.114 350.1.13.70 8.2.7.2.686 [id number] Izaiah gaston [facility] 2020-12-11 00:00:00 2020-12-11 00:00:00 Orders Only Doctor Unassigned, [place] [facility] 1.2.840.114 350.1.13.10 4.2.7.2.686 [id number] [facility] 2020-11-21 11:04:07 2020-11-21 12:04:07 Nurse Visit Therapy, Pcp Tremayne Matthews [facility] 1.2.840.114 350.1.13.10 4.2.7.2.686 [id number] [facility] 2020-11-21 11:00:00 2020-11-21 11:00:00 Outpatient TREMAYNE DOLAN [facility] [id number] [facility] 2020-11-21 00:00:00 2020-11-21 00:00:00 Orders Only Doctor Unassigned, [place] [facility] 1.2.840.114 350.1.13.10 4.2.7.2.686 [id number] [facility] 2020-11-14 12:30:00 2020-11-14 12:30:00 Outpatient Yolanda Phillips [facility] [id number] [facility] 2020-11-14 12:30:00 2020-11-14 12:30:00 Outpatient Yolanda Cruz [facility] [id number] [facility] 2020-09-19 04:41:00 2020-09-19 04:41:00 Outpatient Yolanda Cruz [facility] [id number] [facility] Results Test Description Test Time Test Comments Results Result Co [facility]ments [facility] [id number] 08:11:00* Test Item Value Reference Range Interpretation Comme nts SODIUM (test code = NA) 138 MMOL/L 137-145 N POTASSIUM (test code = K) 3.8 MMOL/L 3.5-5.1 N CHLORIDE (test code = CL) 104 MMOL/L 98-107 N CARBON DIOXIDE (test code = CO2) 25 MMOL/L 22-30 N ANION GAP (test code = GAP) 13 MMOL/L 14-24 L GLUCOSE (test code = GLU) 106 MG/DL 74-106 N BLOOD UREA NITROGEN (test code = BUN) 17 MG/DL 7-17 N GLOMERULAR FILTRATION RATE (test code = GFR) > 60 Reporting units: ml/min/1.73 m2 (Modified MDRD Formula)Reference Range: > or = 60 ml/min/1.73 m2 CREATININE (test code = CREAT) 0.80 MG/DL 0.52-1.04 N CALCIUM (test code = CA) 8.8 MG/DL 8.4-10.2 N CBC W/AUTO [id number] 08:05:00* Test Item Value Reference Range Interpretation Comme nts WHITE BLOOD CELL (test code = WBC) 4.7 K/MM3 3.8-9.8 N RED BLOOD CELL (test code = RBC) 4.13 M/MM3 3.58-4.97 N HEMOGLOBIN (test code = HGB) 11.1 G/DL 11.2-14.9 L HEMATOCRIT (test code = HCT) 34.7 % 33.2-43.5 MEAN CELL VOLUME (test code = MCV) 84 fL 80.7-99.1 N MEAN CELL HGB (test code = MCH) 26.9 pg 27.0-34.1 L MEAN CELL HGB CONCETRATION (test code = MCHC) 32.0 % 32.2-35.7 L RED CELL DISTRIBUTION WIDTH (test code = RDW) 15.6 % 12.1-15.2 H PLATELET COUNT (test code = PLT) 175 K/MM3 129-368 MEAN PLATELET VOLUME (test c ode = MPV) 10.2 fl 7.4-10.4 N NEUTROPHIL % (test code = NT%) 61.0 % 43-75 N IMMATURE GRANULOCYTE % (test code = IG%) 0.4 % 0.0-2.0 N LYMPHOCYTE % (test code = LY%) 17.4 % 14-44 N MONOCYTE % (test code = MO%) 18.9 % 4-13 H EOSINOPHIL % (test code = EO%) 1.9 % 0-6 N BASOPHIL % (test code = BA%) 0.4 % 0-2 N NUCLEATED RBC % (test code = NRBC%) 0.0 % 0-1.0 N NEUTROPHIL # (test code = NT#) 2.84 K/mm3 2.0-7.6 N IMMATURE GRANULOCYTE # (test code = IG#) 0.02 x10 3/uL 0-0.03 N LYMPHOCYTE # (test code = LY#) 0.81 K/mm3 1.0-3.8 L MONOCYTE # (test code = MO#) 0.88 K/mm3 0.1-0.8 H EOSINOPHIL # (test code = EO#) 0.09 K/mm3 0.0-0.2 N BASOPHIL # (test code = BA#) 0.02 K/mm3 0.0-0.2 N NUCLEATED RBC # (test code = NRBC#) 0.00 K/mm3 0.0-0.1 N - XR CHEST [id number] 06:47:00 [facility] 1965 Sex: F Patient Name: ESPERANZA GRANGER Unit No: [id number] EXAMS: CPT CODE: [id number] XR CHEST 1V 79150 EXAM: CHEST ONE VIEW INDICATION: S/P ICD LOCATION: B2 COMPARISON: November 14, 2020 TECHNIQUE: AP view of the chest FINDINGS: The heart size is mildly enlarged. There is a cardiac pacing device in the left chest with no apparent discontinuity of the leads. There are mild congestive changes bilaterally. No pneumothorax or pleural effusion is identified. The osseous structures are normal. IMPRESSION: Mild cardiomegaly with mild congestive changes bilaterally. at 0647 Reported and signed by: Shweta Maddox MD CC: Yolanda Phillips MD Technologist: Perry Diaz, RT(R) Transcrpt Date/Tm/Trnsp: 11/15/2020 (0647) [id number] Orig Print D/T:S: 11/15/2020 (0650) [facility] NAME: ESPERANZA GRANGER [id number] PHYS: [place] [address] : 1965 AGE: 55 SEX: F LOC: Z.409 A PHONE #: [phone] EXAM DATE: 11/15/2020 STATUS: ADM IN FAX #: [phone] RADIOLOGY NO: PAGE 1 Signed Report- XR CHEST [id number] 10:51:00 [facility] : 1965 Sex: F Patient Name: ESPERANZA GRANGER Unit No: [id number] EXAMS: CPT CODE: [id number] XR CHEST 1V [id number] Location Code: B2 CHEST AP HISTORY: ICD placement COMPARISON: None available FINDINGS: Mild cardiomegaly. Dual-lead pacemaker with leads in right atrium and right ventricle. Mild prominence of the central pulmonary vasculature. No evidence of pleural effusion on pneumothorax. IMPRESSION: Mild cardiomegaly. Dual-lead pacemaker. at 1051 Reported and signed by: Tg Larios MD CC: Yolanda Phillips MD Technologist: Paul Shaikh (RT) (R) Transcrpt Date/Tm/Trnsp: 11/14/2020 (1051) [email or web address] Orig Print D/T: S: 11/14/2020 (4737) [facility] NAME: ESPERANZA GRANGER [id number] PHYS: [place] [address] : 1965 AGE: 55 SEX: F LOC: Z.DC4T B PHONE #: [phone] EXAM DATE: 11/14/2020 STATUS: ADM IN FAX #: [phone] RADIOLOGY NO: PAGE 1 Signed ReportBASIC METABOLIC [id number] 07:47:00* Test Item Value Reference Range Interpretation Comme nts SODIUM (test code = NA) 141 MMOL/L 137-145 N POTASSIUM (test code = K) 3.9 MMOL/L 3.5-5.1 N CHLORIDE (test code = CL) 102 MMOL/L 98-107 N CARBON DIOXIDE (test code = CO2) 27 MMOL/L 22-30 N ANION GAP (test code = GAP) 16 MMOL/L 14-24 N GLUCOSE (test code = GLU) 137 MG/DL 74-106 H BLOOD UREA NITROGEN (test code = BUN) 19 MG/DL 7-17 H GLOMERULAR FILTRATION RATE (test code = GFR) > 60 Reporting units: ml/min/1.73 m2 (Modified MDRD Formula)Reference Range: > or = 60 ml/min/1.73 m2 CREATININE (test code = CREAT) 0.90 MG/DL 0.52-1.04 N CALCIUM (test code = CA) 9.4 MG/DL 8.4-10.2 N LIPID PROFILE (CORONARY RISK)2020-11-14 07:47:00* Test Item Value Reference Range Interpretation Comme nts TRIGLYCERIDES (test code = TRIG) 166 MG/DL 150-199 N TRIGLYCERIDES REFERENCE RANGE:Normal: <150 mg/dLBorderline High: 150-199 mg/dLHigh: 200-499 mg/dLVery High: >=500 mg/dL CHOLESTEROL (test code = CHOL) 162 MG/DL <200 HDL CHOLESTEROL (test code = HDL) 36 MG/DL 40-59 L LIPOPROTEIN LDL (test code = LDL) 85 MG/DL 0-99 N OPTIMAL......... <100 mg/dLNEAR OPTIMAL/ABOVE OPTIMAL.........100-12 9 mg/dL BORDERLINE HIGH.........130-159 mg/dL HIGH.........160-189 mg/dL VERY HIGH.........>/= 190 mg/dL [id number] 07:47:00* Test Item Value Reference Range Interpretation Comme nts MAGNESIUM (test code = MAG) 2.0 MG/DL 1.6-2.3 N PROTHROMBIN [id number] 07:34:00* Test Item Value Reference Range Interpretation Comme nts PROTHROMBIN TIME PATIENT (test code = PTP) 12.4 SECONDS 9.5-12.7 INTERNATIONAL NORMAL RATIO (test code = INR) 1.1 0.86-1.14 N The INR is to be used only for monitoring oral anticoagulanttherap y. INDICATION INR VALUE -------1. Prophylaxis, deep venous thrombosis, including high risk surgery. 2.0 - 3.0 2. Prophylaxis, deep venous thrombosis, hip surgery, treatment for deep venous thrombosis or pulmonary prevention of systemic embolism in patients with valvular heart disease, atrial fibrillation, tissue heart valve, or acute myocardial infarction. 2.0 - 3.0 3. Mechanical prosthesis heart valves, recurrent systemic embolism. 3.0 - 4.5 PTT [id number] 07:34:00* Test Item Value Reference Range Interpretation Comme nts PTT ACTIVATED (test code = APTT) 31.3 SECONDS 25.1-36.5 N CBC W/AUTO [id number] 07:19:00* Test Item Value Reference Range Interpretation Comme nts WHITE BLOOD CELL (test code = WBC) 6.3 K/MM3 3.8-9.8 N RED BLOOD CELL (test code = RBC) 4.66 M/MM3 3.58-4.97 N HEMOGLOBIN (test code = HGB) 12.6 G/DL 11.2-14.9 N HEMATOCRIT (test code = HCT) 39.3 % 33.2-43.5 N MEAN CELL VOLUME (test code = MCV) 84 fL 80.7-99.1 N MEAN CELL HGB (test code = MCH) 27.0 pg 27.0-34.1 N MEAN CELL HGB CONCETRATION (test code = MCHC) 32.1 % 32.2-35.7 L RED CELL DISTRIBUTION WIDTH (test code = RDW) 15.3 % 12.1-15.2 H PLATELET COUNT (test code = PLT) 224 K/MM3 129-368 N MEAN PLATELET VOLUME (test c ode = MPV) 9.8 fl 7.4-10.4 N NEUTROPHIL % (test code = NT%) 73.3 % 43-75 N IMMATURE GRANULOCYTE % (test code = IG%) 0.5 % 0.0-2.0 N LYMPHOCYTE % (test code = LY%) 9.7 % 14-44 L MONOCYTE % (test code = MO%) 12.2 % 4-13 N EOSINOPHIL % (test code = EO%) 3.8 % 0-6 N BASOPHIL % (test code = BA%) 0.5 % 0-2 N NUCLEATED RBC % (test code = NRBC%) 0.0 % 0-1.0 N NEUTROPHIL # (test code = NT#) 4.63 K/mm3 2.0-7.6 N IMMATURE GRANULOCYTE # (test code = IG#) 0.03 x10 3/uL 0-0.03 N LYMPHOCYTE # (test code = LY#) 0.61 K/mm3 1.0-3.8 L MONOCYTE # (test code = MO#) 0.77 K/mm3 0.1-0.8 N EOSINOPHIL # (test code = EO#) 0.24 K/mm3 0.0-0.2 H BASOPHIL # (test code = BA#) 0.03 K/mm3 0.0-0.2 N NUCLEATED RBC # (test code = NRBC#) 0.00 K/mm3 0.0-0.1 N COVID 19 Asymptomatic IH [id number] 05:07:00* Test Item Value Reference Range Interpretation Comme nts COVID 19 Asymptomatic IH AG (test code = COVNONPUIAG) NEGATIVE Negative "Negative result s from patients with symptom onset beyondfive days, should be treated as presumptive, andconfirmation with a molecular assay, if necessary forpatient management may be performed. Negative results do notrule out COVID-19 and should not be used as the sole basisfor treatment or patient management decisions, includinginfection control decisions. Negative results should beconsidered in the context of a patients recent exposures,history, and the presence of clinical signs and symptomsconsistent with COVID-19.This test detects both viable andnon-viable SARS-CoV and SARS CoV-2.Test performance dependson the amount of virus (antigen) in the sample." Spec Comments: PRE CATHLAB PROCEDUREComments to Phleb: PLS RUN TEST CHONG. THANKS BASIC METABOLIC [id number] 06:10:00* Test Item Value Reference Range Interpretation Comme nts SODIUM (test code = NA) 143 MMOL/L 137-145 N POTASSIUM (test code = K) 3.6 MMOL/L 3.5-5.1 N CHLORIDE (test code = CL) 102 MMOL/L 98-107 N CARBON DIOXIDE (test code = CO2) 28 MMOL/L 22-30 N GLUCOSE (test code = GLU) 129 MG/DL 74-106 H BLOOD UREA NITROGEN (test code = BUN) 23 MG/DL 7-17 H GLOMERULAR FILTRATION RATE (test code = GFR) > 60 Reporting units: ml/min/1.73 m2 (Modified MDRD Formula)Reference Range: > or = 60 ml/min/1.73 m2 CREATININE (test code = CREAT) 0.80 MG/DL 0.52-1.04 N CALCIUM (test code = CA) 9.9 MG/DL 8.4-10.2 N Is this a LINE draw? NLIPID PROFILE (CORONARY RISK)2020-09-19 06:10:00* Test Item Value Reference Range Interpretation Comme nts TRIGLYCERIDES (test code = TRIG) 193 MG/DL TRIGLYCERIDES REFERENCE RANGE:Normal: <150 mg/dLBorderline High: 150-199 mg/dLHigh: 200-499 mg/dLVery High: >=500 mg/dL CHOLESTEROL (test code = CHOL) 227 MG/DL <200 HDL CHOLESTEROL (test code = HDL) 44 MG/DL 40-59 N LIPOPROTEIN LDL (test code = LDL) 153 MG/DL 0-99 H OPTIMAL......... <100 mg/dLNEAR OPTIMAL/ABOVE OPTIMAL.........100-12 9 mg/dL BORDERLINE HIGH.........130-159 mg/dL HIGH.........160-189 mg/dL VERY HIGH.........>/= 190 mg/dL Is this a LINE draw? [id number] 06:10:00* Test Item Value Reference Range Interpretation Comme nts MAGNESIUM (test code = MAG) 2.1 MG/DL 1.6-2.3 N Is this a LINE draw? NBASIC METABOLIC [id number] 05:59:00* Test Item Value Reference Range Interpretation Comme nts SODIUM (test code = NA) 143 MMOL/L 137-145 N POTASSIUM (test code = K) 3.6 MMOL/L 3.5-5.1 N CHLORIDE (test code = CL) 102 MMOL/L 98-107 N CARBON DIOXIDE (test code = CO2) 28 MMOL/L 22-30 N GLUCOSE (test code = GLU) 129 MG/DL 74-106 H BLOOD UREA NITROGEN (test code = BUN) 23 MG/DL 7-17 H GLOMERULAR FILTRATION RATE (test code = GFR) > 60 Reporting units: ml/min/1.73 m2 (Modified MDRD Formula)Reference Range: > or = 60 ml/min/1.73 m2 CREATININE (test code = CREAT) 0.80 MG/DL 0.52-1.04 N CALCIUM (test code = CA) 9.9 MG/DL 8.4-10.2 N Is this a LINE draw? NLIPID PROFILE (CORONARY RISK)2020-09-19 05:59:00* Test Item Value Reference Range Interpretation Comme nts TRIGLYCERIDES (test code = TRIG) 193 MG/DL TRIGLYCERIDES REFERENCE RANGE:Normal: <150 mg/dLBorderline High: 150-199 mg/dLHigh: 200-499 mg/dLVery High: >=500 mg/dL CHOLESTEROL (test code = CHOL) 227 MG/DL <200 HDL CHOLESTEROL (test code = HDL) 44 MG/DL 40-59 N LIPOPROTEIN LDL (test code = LDL) MG/DL 0-99 Is this a LINE draw? [id number] 05:59:00* Test Item Value Reference Range Interpretation Comme nts MAGNESIUM (test code = MAG) 2.1 MG/DL 1.6-2.3 N Is this a LINE draw? NPROTHROMBIN [id number] 05:46:00* Test Item Value Reference Range Interpretation Comme nts PROTHROMBIN TIME PATIENT (test code = PTP) 10.8 SECONDS 9.5-12.7 N INTERNATIONAL NORMAL RATIO (test code = INR) 1.0 0.86-1.14 N The INR is to be used only for monitoring oral anticoagulanttherap y. INDICATION INR VALUE -------1. Prophylaxis, deep venous thrombosis, including high risk surgery. 2.0 - 3.0 2. Prophylaxis, deep venous thrombosis, hip surgery, treatment for deep venous thrombosis or pulmonary prevention of systemic embolism in patients with valvular heart disease, atrial fibrillation, tissue heart valve, or acute myocardial infarction. 2.0 - 3.0 3. Mechanical prosthesis heart valves, recurrent systemic embolism. 3.0 - 4.5 PTT [id number] 05:46:00* Test Item Value Reference Range Interpretation Comme [facility] PTT ACTIVATED (test code = APTT) 31.7 SECONDS 25.1-36.5 N CBC W/AUTO [id number] 05:34:00* Test Item Value Reference Range Interpretation Comme nts WHITE BLOOD CELL (test code = WBC) 8.8 K/MM3 3.8-9.8 N RED BLOOD CELL (test code = RBC) 5.39 M/MM3 3.58-4.97 H HEMOGLOBIN (test code = HGB) 14.6 G/DL 11.2-14.9 N HEMATOCRIT (test code = HCT) 45.4 % 33.2-43.5 H MEAN CELL VOLUME (test code = MCV) 84 fL 80.7-99.1 N MEAN CELL HGB (test code = MCH) 27.1 pg 27.0-34.1 N MEAN CELL HGB CONCETRATION (test code = MCHC) 32.2 % 32.2-35.7 N RED CELL DISTRIBUTION WIDTH (test code = RDW) 14.6 % 12.1-15.2 N PLATELET COUNT (test code = PLT) 269 K/MM3 129-368 N MEAN PLATELET VOLUME (test c ode = MPV) 10.2 fl 7.4-10.4 N NEUTROPHIL % (test code = NT%) 65.1 % 43-75 N IMMATURE GRANULOCYTE % (test code = IG%) 0.3 % 0.0-2.0 N LYMPHOCYTE % (test code = LY%) 23.8 % 14-44 N MONOCYTE % (test code = MO%) 7.6 % 4-13 N EOSINOPHIL % (test code = EO%) 2.6 % 0-6 N BASOPHIL % (test code = BA%) 0.6 % 0-2 N NUCLEATED RBC % (test code = NRBC%) 0.0 % 0-1.0 N NEUTROPHIL # (test code = NT#) 5.75 K/mm3 2.0-7.6 N IMMATURE GRANULOCYTE # (test code = IG#) 0.03 x10 3/uL 0-0.03 N LYMPHOCYTE # (test code = LY#) 2.10 K/mm3 1.0-3.8 N MONOCYTE # (test code = MO#) 0.67 K/mm3 0.1-0.8 N EOSINOPHIL # (test code = EO#) 0.23 K/mm3 0.0-0.2 H BASOPHIL # (test code = BA#) 0.05 K/mm3 0.0-0.2 N NUCLEATED RBC # (test code = NRBC#) 0.00 K/mm3 0.0-0.1 N Is this a LINE draw? NCOVID 19 Asymptomatic IH [id number] 05:08:00* Test Item Value Reference Range Interpretation Comme nts COVID 19 Asymptomatic IH AG (test code = COVNONPUIAG) NEGATIVE Negative "Negative result s from patients with symptom onset beyondfive days, should be treated as presumptive, andconfirmation with a molecular assay, if necessary forpatient management may be performed. Negative results do notrule out COVID-19 and should not be used as the sole basisfor treatment or patient management decisions, includinginfection control decisions. Negative results should beconsidered in the context of a patients recent exposures,history, and the presence of clinical signs and symptomsconsistent with COVID-19.This test detects both viable andnon-viable SARS-CoV and SARS CoV-2.Test performance dependson the amount of virus (antigen) in the sample." History and Physical Notes Date/Time Note Provider Source 2023-12-27 08:30:00 H&P reviewed. The patient was examined and there are no changes to the H&P. RAL LABOR Source Note - Nabila Metz MD - 12/22/2023 10:50 AM CDT [facility] Clinic Note Subjective Patient ID: Lissett Granger is a 58 y.o. female who presents for No chief complaint on file. HPI 58-year-old female with a past medical history of hypertension, prediabetes, pacemaker who on ultrasound for decreased renal function was found to have large right-sided renal mass. She was seen by Dr. Garcia underwent CT chest and MRI abdomen. CT showed sub-5 mm nodules and she had recently had COVID. MRI shows a 4.2 cm central endophytic right renal mass. There was a central scar therefore Unclear whether or not this was a renal cell carcinoma or oncocytoma. For this reason she underwent IR guided biopsy 11/23/2023. 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 Therefore referred to the clinic for evaluation. Imaging is independently reviewed there is a centrally located concerning right renal mass occupying the majority of the central part of the right kidney encroaching on the hilum. Most recent BMP from 10/04/2023 shows creatinine 1.08 with a EGFR of 60. Past abdominal surgical history consists of open hysterectomy with scar from "hip bone hip bone " in 2006 Plan: -Right renal cell carcinoma. Untreated this represents a life-threatening diagnosis. Unfortunate based on size location of right renal mass not a candidate for partial nephrectomy. Therefore recommend surgery with a hand-assisted laparoscopic right radical nephrectomy. -Due to her decreased renal function will order Lasix renal scan for split function. This would not change operative plan but may help guide treatment by nephrology in the postoperative setting. -She will need cardiology clearance -Discussed her diagnosis as well as the procedure in detail as below and she has agreed to proceed 12/22/2023: Returns clinic for follow-up of 4.2 cm endophytic right renal cell carcinoma Pre-clinic renal scan shows 45/55 right left split with no evidence of obstruction bilaterally Plan: -Proceed to the operating room for hand-assisted laparoscopic right radical nephrectomy -Cardiology clearance has been obtained The patient and I talked at length about treatment options for renal masses. Etiologies of renal masses were discussed with the patient at length including benign renal masses, malignant renal masses, solid renal masses, cystic renal masses, mixed solid and cystic renal masses, and others. Options discussed included serial x-ray imaging with CT scan, MRI scan and ultrasound as well as percutaneous biopsy of the renal mass. Surgical resection of the mass, both laparoscopic and open, partial and total nephrectomy, pathological grades of renal masses, stages of renal masses including possible local tony spread, local extension, renal vein involvement, and IVC involvement was discussed with the patient length. The risks, benefits, and possible complications of renal mass resection, radical nephrectomy, partial nephrectomy, cryoablation, simple nephrectomy, radical nephroureterectomy, postoperative chemotherapy, radiation therapy, immunotherapy, and others were discussed with the patient. Laparoscopic and open approaches were discussed in detail with patient We discussed the possible future recurrence of renal masses. Alternative treatment options were discussed with the patient in detail. All questions were answered. The patient gave fully informed consent to proceed with a hand-assisted laparoscopic radical nephrectomy for treatment of the renal mass. The patient was informed that in some cases there is the the possibility of a conversion to an open procedure. We discussed the procedure as well as recovery in detail. I counseled the patient he will have an overnight Jansen catheter and abdominal drain. We discussed general risks of abdominal surgeries which include pain, bleeding, infection, bowel injury, injury to intra-abdominal organs, heart attack, stroke, . We discussed the expected postoperative course, overnight Jansen catheterization. E&M visit today is associated with current or anticipated ongoing medical care services related to a patient's single, serious condition or a complex condition Approximately 30 minutes spent interpreting results and formulating a plan with the majority greater than 50% [id number] counseling Review of Systems Objective Physical Exam: There were no vitals taken for this visit. Abdomen soft nontender nondistended difficult to visualize her hysterectomy incision under her pannus Past Medical History: Diagnosis Date Cancer (CMS/HCC) (HCC) RIGHT KIDNEY History of cancer Renal Cell Carcinoma of right kidney Hyperlipidemia Hypertension Irregular heart beat PACEMAKERR Pre-diabetes There is no problem list on file for this patient. Past Surgical History: Procedure Laterality Date HYSTERECTOMY 2006? INSERT / REPLACE / REMOVE PACEM[employer]ER [employer] DR[employer] YOLANDA PHILLIPS [phone] IR BIOPSY KIDNEY Left 11/23/2023 IR BIOPSY KIDNEY 11/23/2023 PL XR KNEE SURGERY Left OTHER SURGICAL HISTORY BACK CYST REMOVAL Family History: Problem Relation Name Age of Onset Hypertension Father Luciano Jackson Hypertension Mother Suri Jackson Heart disease Mother Suri Jackson Social History Socioeconomic History Marital status: Spouse name: Not on file Number of children: Not on file Years of education: Not on file Highest education level: Not on file Occupational History Not on file Tobacco Use Smoking status: Never Smokeless tobacco: Never Substance and Sexual Activity Alcohol use: Not Currently Drug use: Never Sexual activity: Not on file Other Topics Concern Not on file Social History Narrative Not on file Social Drivers of Health Financial Resource Strain: Not on file Food Insecurity: Not on file Transportation Needs: Not on file Physical Activity: Not on file Stress: Not on file Social Connections: Not on file Intimate Partner Violence: Not on file Housing Stability: Not on file No Known Allergies Assessment and plan: There are no diagnoses linked to this encounter. Nabila Metz MD [facility] Office: [phone] [facility] Procedure Notes Date/Time Note Provider Source 2023-12-27 08:28:00 Date: 12/27/23 Surgeon: Dr. Nabila Metz assistant product manager: Kristian Pompa CSA Pre-procedure diagnosis: 1. 4.2cm right renal cell carcinoma Postprocedure diagnosis: 1. 4.2cm right renal cell carcinoma Procedure: Right hand-assisted laparoscopic radical nephrectomy Findings: 1. Single renal artery and single renal vein were identified 2. Gonadal vein was spared 3. Adrenal sparing procedure 4. Excellent hemostasis at conclusion Procedure in detail: After informed consent was obtained, the patient identified and brought to the operating suite and placed on the operating table in the supine position. Bilateral TEDs and SCDs were applied, and preoperative antibiotics were administered. He was successfully intubated by anesthesia staff without complication. He was then placed in the right lateral position left side down, all pressure points padded and he was secured to the bed. The bed was then gently flexed. An axillary roll was placed. He was prepped and draped in the usual sterile fashion. A timeout was performed, identifying correct patient and correct procedure. A 16-Georgian Jansen catheter was placed in the bladder with 10 mL in the balloon. An 8 cm right lower quadrant Samson incision was made approximately 2 cm superior to the anterior superior iliac spine.. Bovie electrocautery was used to dissect through the subcutaneous tissue until the fascia was encountered. The fascia was then incised sharply and the peritoneum was entered. Care was taken not to injure the underlying abdominal organs or bowel. The fascial incision was then extended sharply in the direction of the skin incision. The hand port was then placed within this incision. A 12 mm trocar had been placed to the gel of the hand port. This was used to insufflate the abdomen. The abdomen insufflated symmetrically. A camera was then placed within this 12 port and the camera and licensed occupational therapy assistant ports were placed. These were placed first by creating a subcutaneous wheal with exparel. The peritoneum was then anesthetized under direct visualization. A 12 mm incision was made and a electrocautery was used to dissect through subcutaneous tissue. The ports were then placed under direct visualization. The first port was placed near the level of the umbilicus at the lateral rectus border. The a second port approximately 10 cm cephalad to this. The prior placed a trocar was removed from the hand port and the hand was brought to the field. The entrance were used to initiate the dissection at the white line of Toldt. This allowed reflection of the colon. This plane was carried medially until the duodenum was encountered. A Jigna maneuver was then performed to reflect the duodenum medially and exposed the inferior vena cava. The anterior surface of the vena cava was cleaned and followed. Insertion of the gonadal was identified and the gonadal vein was swept down. Dissection was then carried from the edge of the vena cava towards the psoas muscle. This allowed isolation of the retroperitoneum. Next the ureter was identified and dissected free from surrounding attachments. Weck clips were placed proximally and distally on the ureter and the ureter was transected. The tail of the retroperitoneum was also transected with the LigaSure. Dissection was then readdressed in a cephalad fashion making packets and transecting soft tissue. This allowed for identification of the renal vein which was cleared from surrounding attachments. Next the renal artery was identified and also cleared from surrounding attachments. A vascular stapling device was brought across the renal artery and fired the artery was transected and it was noted to be excellent hemostasis. This was repeated across the renal vein with good hemostasis. Next the LigaSure was used to separate the plane between the kidney and adrenal gland and Gerota's fascia. The few remaining attachments were transected with the LigaSure and the specimen was freed. At this point the specimen was brought out of the Samson incision and sent off the field. The abdomen was reinsufflated and meticulous inspection was undertaken of the hilum as well as the adrenal bed and finally the gonadal vein and excellent hemostasis was noted. FloSeal and Surgicel was placed over the hilum and the plane between the kidney and the adrenal gland. Pressure was reduced and again excellent hemostasis was noted. The 12 mm ports were closed under direct visualization with a Nahun-Yoanna device and 0 Vicryl suture. The hand port was removed and the peritoneum was closed with a running 0 chromic suture. The fascia was closed in 2 layers first with a running 0 looped PDS next with interrupted #1 Vicryl. The skin was closed with a 4-0 Monocryl subcuticular. The camera and laparoscopic port skin sites were also closed with 4-0 Monocryl subcuticular. The abdomen was then cleaned and Dermabond applied to all incisions. This concluded the procedure and the patient tolerated it well. There were no immediate comp occasions. Sponge lap and instrument counts were all correct. Anesthesia: General anesthesia Estimated blood loss: 5 cc Fluids: See anesthesia records Blood products administered: None Implants: None Drains: Jansen catheter Specimens: Right kidney Complications: None Condition: Good Disposition: The patient was successfully extubated in the operating room and transferred to the PACU in good condition. Plan: The patient will be admitted for monitoring and IV pain control. Once discharged he will follow-up in 1-2 weeks for discussion of pathology. [facility] Notes Upcoming Encounters Date/Time Note Provider Source Health Maintenance Due Date Last Done Comments CT Colonography 1964 Colonoscopy 1964 Diabetes: Hemoglobin A1C 1964 FIT 1964 FOBT 1964 Lipid Panel 1964 Sigmoidoscopy 1964 Annual Physical 10/28/1967 Diabetes: Foot Exam 1974 Diabetes: Retinopathy Screening 1974 DTaP/Tdap/Td Vaccines (1 - Tdap) 10/28/1983 Diabetes: Urine Protein Screening 10/28/1983 Hepatitis B Vaccines (1 of 3 - 19+ 3-dose series) 10/28/1983 Pap Smear 1985 Cervical Cancer Screening 1994 HPV/Cotest 1994 Mammogram 2004 Zoster Vaccines (1 of 2) 2014 Influenza Vaccine (#1) 2023 Colorectal Cancer Screening 01/03/2025 FIT-DNA 01/03/2025 01/03/2022, 01/03/2022 HIB Vaccines Aged Out No longer eligi ble based on patient's age to complete this topic HPV Vaccines Aged Out No longer eligi ble based on patient's age to complete this topic Hepatitis A Vaccines Aged Out No long er eligible based on patient's age to complete this topic IPV Vaccines Aged Out No longer eligi ble based on patient's age to complete this topic Meningococcal Vaccine Aged Out No heather silverio eligible based on patient's age to complete this topic Pneumococcal Vaccine: Pediatrics (0 to 5 Years) and At-Risk Patients (6 to 64 Years) Aged Out No longer eligible b ased on patient's age to complete this topic Rotavirus Vaccines Aged Out No longer eligible based on patient's age to complete this topic [id number] 23:55:18 [facility] [id number] 11:25:58* Imaging (Routine) - Pending Review Specialty Diagnoses / Procedures Referred By Pamela t Referred To Contact Radiology Diagnoses Malignant neoplasm of right kidney (HCC) Procedures CT abdomen w [place] [id number] [place] [address] Phone: tel: fax: Referral ID Status Reason Start Date Expiration Date V isits Requested Visits Authorized [id number] Pending Review 01/11/2024 07/09/2024 1 1 [id number] 11:25:58* Nabila Metz MD - 01/11/2024 11:30 AM GENERAL [facility]OR [facility] Clinic Note Subjective Patient ID: Lissett Granger is a 58 y.o. female who presents for No chief complaint on file. HPI 58-year-old female with a past medical history of hypertension, prediabetes, pacemaker who on ultrasound for decreased renal function was found to have large right-sided renal mass. She was seen by Dr. Garcia underwent CT chest and MRI abdomen. CT showed sub-5 mm nodules and she had recently had COVID. MRI shows a 4.2 cm central endophytic right renal mass. There was a central scar therefore Unclear whether or not this was a renal cell carcinoma or oncocytoma. For this reason she underwent IR guided biopsy 11/23/2023. 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 Therefore referred to the clinic for evaluation. Imaging is independently reviewed there is a centrally located concerning right renal mass occupying the majority of the central part of the right kidney encroaching on the hilum. Most recent BMP from 10/04/2023 shows creatinine 1.08 with a EGFR of 60. Past abdominal surgical history consists of open hysterectomy with scar from "hip bone hip bone " in 2006 Plan: -Right renal cell carcinoma. Untreated this represents a life-threatening diagnosis. Unfortunate based on size location of right renal mass not a candidate for partial nephrectomy. Therefore recommend surgery with a hand-assisted laparoscopic right radical nephrectomy. -Due to her decreased renal function will order Lasix renal scan for split function. This would not change operative plan but may help guide treatment by nephrology in the postoperative setting. -She will need cardiology clearance -Discussed her diagnosis as well as the procedure in detail as below and she has agreed to proceed 12/22/2023: Returns clinic for follow-up of 4.2 cm endophytic right renal cell carcinoma Pre-clinic renal scan shows 45/55 right left split with no evidence of obstruction bilaterally Plan: -Proceed to the operating room for hand-assisted laparoscopic right radical nephrectomy -Cardiology clearance has been obtained 01/05/2024: Returns to clinic status post right hand-assisted laparoscopic radical nephrectomy 12/27/2023 Pathology reviewed pT1b clear-cell renal cell carcinoma Carlie nuclear grade 2 with negative margins Today she has pain especially in the paraspinal muscles back spasming as well as superiormost incision is burning She states tramadol has no effect Plan: -On exam completely normal abdomen soft nontender nondistended incisions look excellent clean dry intact well-healed no concern for infection no concern for intra-abdominal process the paraspinal muscles are tight -Follow-up for T1b baseline CT of the abdomen with and without contrast in 6 months, CMP, CBC, chest x-ray -Back spasm start Robaxin -Lidocaine patch for incisional pain -[place] instead of tramadol -Virtual visit next week to ensure that she is improving if not we may perform CT scan 01/11/2024: Returns clinic for follow-up of pT1b clear-cell renal cell carcinoma Carlie nuclear grade 2 with negative margins status post radical nephrectomy 12/27/2023 She was seen last week with continued pain now doing much better not requiring pain meds Plan: -Follow-up for T1b baseline CT of the abdomen with and without contrast in 6 months, CMP, CBC, chest x-ray E&M visit today is associated with current or anticipated ongoing medical care services related to a patient's single, serious condition or a complex condition Review of Systems Objective Physical Exam: There were no vitals taken for this visit. Abdomen soft nontender nondistended difficult to visualize her hysterectomy incision under her pannus Past Medical History: Diagnosis Date Cancer (CMS/HCC) (HCC) RIGHT KIDNEY History of cancer Renal Cell Carcinoma of right kidney Hyperlipidemia Hypertension Irregular heart beat PACEMAKERR Pre-diabetes Patient Active Problem List Diagnosis Malignant neoplasm of right kidney (HCC) HTN (hypertension) Pacemaker Renal cell carcinoma of right kidney (HCC) Past Surgical History: Procedure Laterality Date HYSTERECTOMY 2006? INSERT / REPLACE / REMOVE [employer]EM[employer] DR[employer] YOLANDA PHILLIPS [phone] IR BIOPSY KIDNEY Left 11/23/2023 IR BIOPSY KIDNEY 11/23/2023 PL XR KNEE SURGERY Left OTHER SURGICAL HISTORY BACK CYST REMOVAL Family History: Problem Relation Name Age of Onset Hypertension Father Luciano Jackson Hypertension Mother Suri Jackson Heart disease Mother Suri Jackson Social History Socioeconomic History Marital status: Spouse name: Not on file Number of children: Not on file Years of education: Not on file Highest education level: Not on file Occupational History Not on file Tobacco Use Smoking status: Never Smokeless tobacco: Never Substance and Sexual Activity Alcohol use: Not Currently Drug use: Never Sexual activity: Not on file Other Topics Concern Not on file Social History Narrative Not on file Social Drivers of Health Financial Resource Strain: Not on file Food Insecurity: No Food Insecurity (12/28/2023) Hunger Vital Sign Worried About Running Out of Food in the Last Year: Never true Ran Out of Food in the Last Year: Never true Transportation Needs: No Transportation Needs (12/28/2023) PRAPARE - Transportation Lack of Transportation (Medical): No Lack of Transportation (Non-Medical): No Physical Activity: Not on file Stress: Not on file Social Connections: Not on file Intimate Partner Violence: Not on file Housing Stability: Unknown (12/28/2023) Housing Stability Vital Sign Unable to Pay for Housing in the Last Year: No Number of Times Moved in the Last Year: Not on file Homeless in the Last Year: No Allergies Allergen Reactions Percocet [Oxycodone-Acetaminophen] Makes pt sick Assessment and plan: There are no diagnoses linked to this encounter. Nabila Metz MD [facility] Office: [phone] [facility]2024-11-21 11:25:58Upcoming Encounters Scheduled Orders Name Type Priority Associated Diagnoses Orde r Schedule Comprehensive Metabolic Panel Lab Routine Malignant neoplasm o f right kidney (HCC) Expected: 01/11/2024 (Approximate), Expires: 01/10/2025 Complete Blood Count w/Diff and Platelet Lab Routine Malignant neoplasm o f right kidney (HCC) Expected: 01/11/2024 (Approximate), Expires: 01/10/2025 XR chest 2 views Imaging Routine Malignant n eoplasm of right kidney (HCC) Expected: 01/11/2024, Expires: 01/10/2025 CT abdomen w and wo IV contrast Imaging Routine Malignant neoplasm o f right kidney (HCC) Expected: 01/11/2024, Expires: 01/10/2025 Health Maintenance Due Date Last Done Comments CT Colonography 1964 Colonoscopy 1964 FIT 1964 FOBT 1964 Lipid Panel 1964 Sigmoidoscopy 1964 Annual Physical 10/28/1967 DTaP/Tdap/Td Vaccines (1 - Tdap) 10/28/1983 Hepatitis B Vaccines (1 of 3 - 19+ 3-dose series) 10/28/1983 Pap Smear 1985 Cervical Cancer Screening 1994 HPV/Cotest 1994 Mammogram 2004 Zoster Vaccines (1 of 2) 2014 Influenza Vaccine (#1) 2023 Colorectal Cancer Screening 01/03/2025 FIT-DNA 01/03/2025 01/03/2022, 01/03/2022 HIB Vaccines Aged Out No longer eligi ble based on patient's age to complete this topic HPV Vaccines Aged Out No longer eligi ble based on patient's age to complete this topic Hepatitis A Vaccines Aged Out No long er eligible based on patient's age to complete this topic IPV Vaccines Aged Out No longer eligi ble based on patient's age to complete this topic Meningococcal Vaccine Aged Out No heather silverio eligible based on patient's age to complete this topic Pneumococcal Vaccine: Pediatrics (0 to 5 Years) and At-Risk Patients (6 to 64 Years) Aged Out No longer eligible b ased on patient's age to complete this topic Rotavirus Vaccines Aged Out No longer eligible based on patient's age to complete this topic [facility] [id number] 11:25:58 Diagnosis Malignant neoplasm of right kidney (HCC) - Primary [facility] [id number] 11:25:58 [facility] [id number] 09:56:55* [facility] [id number] 09:56:55* Nabila Metz MD - 01/05/2024 9:40 AM GENERAL [facility]OR [facility] Clinic Note Subjective Patient ID: Lissett Granger is a 58 y.o. female who presents for Chief Complaint Patient presents with post op , results of pathology , pt c/o pain after sx HPI 58-year-old female with a past medical history of hypertension, prediabetes, pacemaker who on ultrasound for decreased renal function was found to have large right-sided renal mass. She was seen by Dr. Garcia underwent CT chest and MRI abdomen. CT showed sub-5 mm nodules and she had recently had COVID. MRI shows a 4.2 cm central endophytic right renal mass. There was a central scar therefore Unclear whether or not this was a renal cell carcinoma or oncocytoma. For this reason she underwent IR guided biopsy 11/23/2023. 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 Therefore referred to the clinic for evaluation. Imaging is independently reviewed there is a centrally located concerning right renal mass occupying the majority of the central part of the right kidney encroaching on the hilum. Most recent BMP from 10/04/2023 shows creatinine 1.08 with a EGFR of 60. Past abdominal surgical history consists of open hysterectomy with scar from "hip bone hip bone " in 2006 Plan: -Right renal cell carcinoma. Untreated this represents a life-threatening diagnosis. Unfortunate based on size location of right renal mass not a candidate for partial nephrectomy. Therefore recommend surgery with a hand-assisted laparoscopic right radical nephrectomy. -Due to her decreased renal function will order Lasix renal scan for split function. This would not change operative plan but may help guide treatment by nephrology in the postoperative setting. -She will need cardiology clearance -Discussed her diagnosis as well as the procedure in detail as below and she has agreed to proceed 12/22/2023: Returns clinic for follow-up of 4.2 cm endophytic right renal cell carcinoma Pre-clinic renal scan shows 45/55 right left split with no evidence of obstruction bilaterally Plan: -Proceed to the operating room for hand-assisted laparoscopic right radical nephrectomy -Cardiology clearance has been obtained 01/05/2024: Returns to clinic status post right hand-assisted laparoscopic radical nephrectomy 12/27/2023 Pathology reviewed pT1b clear-cell renal cell carcinoma Carlie nuclear grade 2 with negative margins Today she has pain especially in the paraspinal muscles back spasming as well as superiormost incision is burning She states tramadol has no effect Plan: -On exam completely normal abdomen soft nontender nondistended incisions look excellent clean dry intact well-healed no concern for infection no concern for intra-abdominal process the paraspinal muscles are tight -Follow-up for T1b baseline CT of the abdomen with and without contrast in 6 months, CMP, CBC, chest x-ray -Back spasm start Robaxin -Lidocaine patch for incisional pain -[place] instead of tramadol -Virtual visit next week to ensure that she is improving if not we may perform CT scan Review of Systems Objective Physical Exam: Visit Vitals BP 137/85 (BP Location: Right arm, Patient Position: Sitting, BP Cuff Size: Adult) Pulse 75 Abdomen soft nontender nondistended difficult to visualize her hysterectomy incision under her pannus Past Medical History: Diagnosis Date Cancer (CMS/HCC) (HCC) RIGHT KIDNEY History of cancer Renal Cell Carcinoma of right kidney Hyperlipidemia Hypertension Irregular heart beat PACEMAKERR Pre-diabetes Patient Active Problem List Diagnosis Malignant neoplasm of right kidney (HCC) HTN (hypertension) Pacemaker Renal cell carcinoma of right kidney (HCC) Past Surgical History: Procedure Laterality Date HYSTERECTOMY 2006? INSERT / REPLACE / REMOVE [employer]EM[employer] DR[employer] YOLANDA PHILLIPS [phone] IR BIOPSY KIDNEY Left 11/23/2023 IR BIOPSY KIDNEY 11/23/2023 PL XR KNEE SURGERY Left OTHER SURGICAL HISTORY BACK CYST REMOVAL Family History: Problem Relation Name Age of Onset Hypertension Father Luciano Jacskon Hypertension Mother Suri Jackson Heart disease Mother Suri Jackson Social History Socioeconomic History Marital status: Spouse name: Not on file Number of children: Not on file Years of education: Not on file Highest education level: Not on file Occupational History Not on file Tobacco Use Smoking status: Never Smokeless tobacco: Never Substance and Sexual Activity Alcohol use: Not Currently Drug use: Never Sexual activity: Not on file Other Topics Concern Not on file Social History Narrative Not on file Social Drivers of Health Financial Resource Strain: Not on file Food Insecurity: No Food Insecurity (12/28/2023) Hunger Vital Sign Worried About Running Out of Food in the Last Year: Never true Ran Out of Food in the Last Year: Never true Transportation Needs: No Transportation Needs (12/28/2023) PRAPARE - Transportation Lack of Transportation (Medical): No Lack of Transportation (Non-Medical): No Physical Activity: Not on file Stress: Not on file Social Connections: Not on file Intimate Partner Violence: Not on file Housing Stability: Unknown (12/28/2023) Housing Stability Vital Sign Unable to Pay for Housing in the Last Year: No Number of Times Moved in the Last Year: Not on file Homeless in the Last Year: No Allergies Allergen Reactions Percocet [Oxycodone-Acetaminophen] Makes pt sick Assessment and plan: Diagnoses and all orders for this visit: Malignant neoplasm of right kidney (HCC) - HYDROcodone-acetaminophen ([place]) 5-325 MG tablet; Take 1 tablet by mouth every 6 hours if needed for severe pain (7-10) for up to 7 days. Other orders - methocarbamol (Robaxin) 750 MG tablet; Take 1 tablet by mouth 3 times a day as needed for muscle spasms for up to 14 days. Tale one tablet 3 hours prior to surgery - lidocaine (Lidoderm) 5 % patch; Apply 1 patch over 12 hours topically 1 time each day. Remove & discard patch within 12 hours or as directed by MD. - naloxone (Narcan) 4 mg/0.1 mL nasal spray; Administer 1 spray into affected nostril(s) if needed for opioid reversal. May repeat every 2-3 minutes if needed, alternating nostrils, until medical assistance becomes available. Nabila Metz MD [facility] Office: [phone] [facility]2024-11-15 09:56:55Upcoming Encounters Health Maintenance Due Date Last Done Comments CT Colonography 1964 Colonoscopy 1964 FIT 1964 FOBT 1964 Lipid Panel 1964 Sigmoidoscopy 1964 Annual Physical 10/28/1967 DTaP/Tdap/Td Vaccines (1 - Tdap) 10/28/1983 Hepatitis B Vaccines (1 of 3 - 19+ 3-dose series) 10/28/1983 Pap Smear 1985 Cervical Cancer Screening 1994 HPV/Cotest 1994 Mammogram 2004 Zoster Vaccines (1 of 2) 2014 Influenza Vaccine (#1) 2023 Colorectal Cancer Screening 01/03/2025 FIT-DNA 01/03/2025 01/03/2022, 01/03/2022 HIB Vaccines Aged Out No longer eligi ble based on patient's age to complete this topic HPV Vaccines Aged Out No longer eligi ble based on patient's age to complete this topic Hepatitis A Vaccines Aged Out No long er eligible based on patient's age to complete this topic IPV Vaccines Aged Out No longer eligi ble based on patient's age to complete this topic Meningococcal Vaccine Aged Out No heather silverio eligible based on patient's age to complete this topic Pneumococcal Vaccine: Pediatrics (0 to 5 Years) and At-Risk Patients (6 to 64 Years) Aged Out No longer eligible b ased on patient's age to complete this topic Rotavirus Vaccines Aged Out No longer eligible based on patient's age to complete this topic [id number] 09:56:55 Diagnosis Malignant neoplasm of right kidney (HCC) - Primary [facility] [id number] 09:56:55 [facility] CenterCoyunso7904-83-78 15:49:14Upcoming Encounters Health Maintenance Due Date Last Done Comments CT Colonography 1964 Colonoscopy 1964 FIT 1964 FOBT 1964 Lipid Panel 1964 Sigmoidoscopy 1964 Annual Physical 10/28/1967 DTaP/Tdap/Td Vaccines (1 - Tdap) 10/28/1983 Hepatitis B Vaccines (1 of 3 - 19+ 3-dose series) 10/28/1983 Pap Smear 1985 Cervical Cancer Screening 1994 HPV/Cotest 1994 Mammogram 2004 Zoster Vaccines (1 of 2) 2014 Influenza Vaccine (#1) 2023 Colorectal Cancer Screening 01/03/2025 FIT-DNA 01/03/2025 01/03/2022, 01/03/2022 HIB Vaccines Aged Out No longer eligi ble based on patient's age to complete this topic HPV Vaccines Aged Out No longer eligi ble based on patient's age to complete this topic Hepatitis A Vaccines Aged Out No long er eligible based on patient's age to complete this topic IPV Vaccines Aged Out No longer eligi ble based on patient's age to complete this topic Meningococcal Vaccine Aged Out No heather silverio eligible based on patient's age to complete this topic Pneumococcal Vaccine: Pediatrics (0 to 5 Years) and At-Risk Patients (6 to 64 Years) Aged Out No longer eligible b ased on patient's age to complete this topic Rotavirus Vaccines Aged Out No longer eligible based on patient's age to complete this topic [facility] CenterRervott1100-27-61 15:49:14 [facility] 15:26:27* Auth/Cert (Routine) Specialty Diagnoses / Procedures Referred By Pamela t Referred To Contact Diagnoses Malignant neoplasm of right kidney, except renal pelvis (HCC) Malignant neoplasm of right kidney, except renal pelvis (HCC) [C64.1] Procedures OR LAPAROSCOPY RADICAL NEPHRECTOMY LAPAROSCOPIC HAND ASSISTED RADICAL NE[place]RECTOMY[place] [id number] [address] Phone: tel: fax: Referral ID Status Reason Start Date Expiration Date Visits Re quested Visits Authorized [id number] 12/04/2023 1 1 [id number] 15:26:27* Nabila Metz MD - 12/28/2023 12:11 PM GENERAL LABOR Discharge Diagnosis Patient Active Problem List Diagnosis Malignant neoplasm of right kidney (HCC) HTN (hypertension) Pacemaker Renal cell carcinoma of right kidney (HCC) Hospital Course Uncomplicated hospital course Jansen removed postop day 1 By midday she was tolerating regular diet with return of bowel function discharged home Information Provided to Patient/Family I discussed with the patient/family details of the stay. See After Visit Summary which were reviewed and shared with patient/family. Operative Procedures Performed Procedure(s): HAND ASSISTED LAPAROSCOPIC RADICAL NEPHRECTOMY, RIGHT Patient Condition at Discharge Stable Disposition Home Discharge Medications See medication reconciliation Outpatient Follow-Up No future appointments. RAL LABOR [facility] [id number] 15:26:27* Nabila Metz MD - 12/28/2023 9:14 AM GENERAL LABOR [facility] Progress Note Subjective No acute events overnight Pain controlled Ambulating without difficulty Objective Last Recorded Vitals Blood pressure 128/52, pulse 61, temperature 36.6 ?C (97.9 ?F), resp. rate 17, SpO2 (!) 94%. Pertinent Labs :Lab Results Component Value Date WBC 12.77 (H) 12/28/2023 Hgb 11.3 12/28/2023 Hct 35.6 12/28/2023 Plt Count 167 (L) 12/28/2023 Lab ResultsComponent Value Date Sodium Lvl 141 12/28/2023 Potassium Lvl 4.0 12/28/2023 Chloride Lvl 108 (H) 12/28/2023 CO2 Lvl 24.2 12/28/2023 BUN 19 12/28/2023 Creatinine Lvl 2.02 (H) 12/28/2023 Glucose Lvl 162 (H) 12/28/2023 Lab ResultsComponent Value Date Calcium Lvl 9.2 12/28/2023 No results found for: "AST", "ALT", "ALKPHOS"No results found for: "PTT", "PT", "INR" ECG 12 leadAtrial-paced rhythm with prolonged AV conduction NONSPECIFIC T WAVE ABNORMALITY(IES) ABNORMAL ECG NO PREVIOUS ECGS AVAILABLE Confirmed by Rodrigo Cohn ([id number]) on 12/24/2023 5:16:07 PM Physical Exam:Constitutional: Appearance: Normal appearance. HENT: Head: Normocephalic and atraumatic. Mouth/Throat: Mouth: Mucous membranes are moist. Pulmonary: Effort: Pulmonary effort is normal. Abdominal: General: Abdomen is flat. Neurological: Mental Status: He is alert. : Jansen with clear urineAbdomen soft nontender nondistended incisions clean dry and intact healing well Assessment & PlanRenal cell carcinoma of right kidney (HCC) HTN (hypertension) Pacemaker Status post hand-assisted laparoscopic right radical nephrectomy 12/27/2023 Plan:-Doing very well -Advance to renal diet -DC Jansen -Likely DC home in p.m. MD Callie [email or web address] Office: [phone] [facility]2024-11-07 15:26:27Upcoming Encounters Pending Results Name Type Priority Associated Diagnoses Date /Time Tissue Examination Pathology and Cytology Routine Malignant neoplasm of right kidney, except renal pelvis (HCC) 12/27/2023 10:19 AM GENERAL LABOR Scheduled Orders Name Type Priority Associated Diagnoses Order Schedule Complete Blood Count w/Diff and Platelet Lab Routine Morning draw (Lab) for 3 Occurrences starting 12/28/2023 until 12/30/2023, 1 completed Basic Metabolic Panel Lab Routine Morning draw (La b) for 3 Occurrences starting 12/28/2023 until 12/30/2023, 1 completed POCT glucose meter docked device Point of Care Testing - Docked Device Routine Every 15 minutes as needed until discontinued starting 12/27/2023 POCT glucose meter docked device Point of Care Testing - Docked Device Routine 3 times daily before meals (Lab) for 30 Days starting 12/27/2023 until 01/26/2024, 2 completed Tissue Examination Pathology and Cytology Timed Malignant neoplasm of right kidney, except renal pelvis (HCC) Release Upon Ordering for 1 Occurrences starting 12/27/2023, 1 completed Health Maintenance Due Date Last Done Comments CT Colonography 1964 Colonoscopy 1964 FIT 1964 FOBT 1964 Lipid Panel 1964 Sigmoidoscopy 1964 Annual Physical 10/28/1967 DTaP/Tdap/Td Vaccines (1 - Tdap) 10/28/1983 Hepatitis B Vaccines (1 of 3 - 19+ 3-dose series) 10/28/1983 Pap Smear 1985 Cervical Cancer Screening 1994 HPV/Cotest 1994 Mammogram 2004 Zoster Vaccines (1 of 2) 2014 Influenza Vaccine (#1) 2023 Colorectal Cancer Screening 01/03/2025 FIT-DNA 01/03/2025 01/03/2022, 01/03/2022 HIB Vaccines Aged Out No longer eligi ble based on patient's age to complete this topic HPV Vaccines Aged Out No longer eligi ble based on patient's age to complete this topic Hepatitis A Vaccines Aged Out No long er eligible based on patient's age to complete this topic IPV Vaccines Aged Out No longer eligi ble based on patient's age to complete this topic Meningococcal Vaccine Aged Out No heather silverio eligible based on patient's age to complete this topic Pneumococcal Vaccine: Pediatrics (0 to 5 Years) and At-Risk Patients (6 to 64 Years) Aged Out No longer eligible b ased on patient's age to complete this topic Rotavirus Vaccines Aged Out No longer eligible based on patient's age to complete this topic [facility] CenterQsgqccb5875-27-08 15:26:27 Diagnosis Renal cell carcinoma of righ t kidney (HCC) - Primary Malignant neoplasm of right kidney, except renal pelvis (HCC) Renal cell carcinoma of righ t kidney (HCC) HTN (hypertension) Unspecified essential hypertension Pacemaker Cardiac pacemaker in situ [facility] [id number] 15:26:27 [facility] [id number] 13:13:21 Images from the original note were not included. [id number] Kidney Cancer: Treatment Discharge Instructions When you?re being treated for kidney cancer, you?ll need to take good care of yourself at home after treatment. The tips below will help you care for yourself after surgery, chemotherapy (chemo), immunotherapy, targeted therapy, or radiation. It's important to talk with your healthcare providers about what symptoms to watch for and when to call them. For instance, chemo can make you more likely to get infections. You may be told to check your temperature and stay away from people who are sick. You may need to call if you have a fever or chills. Make sure you know what number to call with questions. Is there a different number for evenings and weekends? It's also important to know which medicines you're taking. Write down the names of your medicines. Ask your healthcare team how each one works, how much to take, how to take it, when to take it, what it's supposed to do, and what side effects it might cause. Home care after surgery Here?s what to do at home after surgery for kidney cancer: ? Take your medicines exactly as directed. Use your pain medicine as needed so you can be up and moving around. Don't stay in bed. ? Do the coughing and deep breathing exercises you learned in the hospital. ? Shower as desired. Ask a friend or family member to stay close by in case you need help. Don?t use a bathtub or hot tub or swim until your healthcare provider says it?s OK. ? Keep your cut (incision) clean and dry. Cover it with a dry, clean bandage as directed. Wash your incision gently with mild soap and warm water. Pat it dry. Don?t scrub it. Follow your surgeon's instructions on how to change the dressing. Before changing your bandage, wash your hands with soap and clean, running (warm or cold) water. ? Check your temperature every day for a week after your surgery. ? Don?t worry if you feel more tired than normal. Feeling tired and weak are common for a few weeks after surgery. Listen to your body. If an activity causes pain, stop. ? Limit your activity to short walks. Plan rest breaks so you don't have shortness of breath. Slowly increase your activity as you feel able. ? Don't do any strenuous activities. This includes mowing the lawn, using a vacuum guide rail cleaner, or playing sports. ? Don?t lift anything heavier than 10 pounds for 4 weeks. ? Don?t drive until you are free of pain and no longer taking prescription pain medicine. This may take 2 to 4 weeks. ? Eat a healthy, well-balanced diet. ? Take steps to prevent constipation. Eat fruits, vegetables, and whole grains. Drink 6 to 8 glasses of water a day unless your healthcare provider tells you to limit fluids. Use a laxative or a mild stool softener if your healthcare provider says it?s OK. Home care after chemotherapy, immunotherapy, or targeted therapy After chemotherapy, immunotherapy, or targeted therapy, you?ll need to prevent and ease mouth sores, eat well, and try to stay germ-free. Here?s what to do at home after chemo for kidney cancer: ? Amma your teeth with a soft-bristle toothbrush after every meal and at bedtime. ? Don?t use dental floss if your platelet count is low. Your healthcare provider or nurse will tell you if this is the case. ? Use an oral swab or special soft toothbrush if your gums bleed during regular brushing. ? Don?t use alcohol-based mouthwashes. (They may cause pain if your mouth is irritated or has sores.) ? Use salt and baking soda to clean your mouth. Mix 1 teaspoon of salt and 1 teaspoon of baking soda into an 8-ounce glass of warm water. Swish and spit as often as you like to keep your mouth moist and clean. ? Let your healthcare provider know if your throat is sore. ? Check your mouth and tongue for white patches. This may be a sign of a fungal or yeast infection. This is a common side effect of chemo. Tell your provider about these patches. You may need medicine to help you fight a fungal infection. ? Try to exercise. Exercise keeps you strong and keeps your heart and lungs active. Walk as much as you feel able. ? Get plenty of rest. Tell your team if you're having trouble sleeping. ? Use antinausea medicines as needed. Don't wait until you start vomiting. ? Follow the diet your provider talked to you about. For instance, tips may include: o Choose bland foods with little taste or smell if you are reacting strongly to food. o Eat small meals several times a day. o Be sure to cook all food thoroughly. This kills bacteria and helps prevent infection. o Eat foods that are cool and soft. They are less likely to cause mouth, throat, and stomach irritation. o Stock up on gopt-mm-thqx foods. o Eat foods high in protein and calories. o Drink plenty of water and other fluids, unless directed otherwise by your provider. o Ask your provider before taking any vitamins, herbs, or other supplements. ? Keep your skin clean. During treatment your body can?t fight germs very well. o Take short baths or showers with warm water. Don't use very hot or cold water. o Use moisturizing soap. Treatment can make your skin dry. o Use lotion and lip balm a few times a day to help ease dry skin. o Tell your provider about skin rashes or wounds that don't heal. Treatment may be needed to help prevent infection. Home care after radiation therapy After radiation therapy, you?ll need to take extra care of your skin in the area that's treated. Here?s what to do at home after radiation therapy for kidney cancer: ? Don?t scrub or use soap on the treated area of your skin. ? Ask your healthcare team which lotion to use. ? Keep the treated area out of the sun. Ask your healthcare team if you can use a sunscreen. ? Don?t remove ink santana unless your radiation therapist says it?s OK. Don?t scrub or use soap on the santana when you wash. Let water run over them and pat them dry. ? Protect your skin from heat or cold. Don't use hot tubs, saunas, heating pads, or ice packs. ? Wear soft, loose clothing to prevent rubbing your skin. ? Don?t be surprised if your treatment causes skin color changes, leach, or blisters. Ask your team what to do and how to protect your skin. ? Be prepared for nausea and vomiting. Make sure you have medicines to treat nausea right away. ? Watch for changes in your bowel movements. Let your team know about diarrhea or constipation. When to call your healthcare provider During your treatment period, call your healthcare team right away if you have any of these: ? Fever of 100.4?F ( 38?C) or higher, or as directed by your healthcare provider ? Chills ? Signs of infection around an incision (redness, drainage, warmth, pain) ? Incision opens up or pulls apart ? Unusual bleeding or bruising ? Shortness of breath, especially at rest ? Pain that gets worse or isn't controlled with your pain medicines ? Less urine ? Blood in your urine ? Cloudy or bad-smelling urine ? Pain or burning when you pass urine ? Fast, irregular heartbeat ? Dizziness or lightheadedness ? Always feeling cold ? New redness, pain, swelling, or warmth in your leg or arm ? Chest pain ? Ongoing nausea, vomiting, or diarrhea ? Headaches or vision changes Ask about all side effects or problems you should watch for. Ask what you should do if they happen. You can often do things to control or even prevent treatment side effects. Most of them get better over time as you heal and recover. Last Reviewed Date: 2021 00:00:00 ? [id number] [employer]. All rights reserved. This information is not intended as a substitute for professional medical care. Always follow your healthcare professional's instructions. [facility] MedicineP[facility] CenterKgocjwn7731-45-95 13:13:17 Images from the original note were not included. [id number] Discharge Instructions for Kidney (Renal) Cryoablation You've had cryoablation to treat kidney cancer. This procedure used a needle and very cold gas or liquid to kill cancer cells in your kidney by freezing them. Here?s how to take care of yourself at home: Home care ? Rest at home for 2 to 3 days, or as long as needed. ? Drink 6 to 8 glasses of water a day, unless you get other instructions. ? Take your medicines exactly as directed. You will likely be given pain medicine and antibiotics. ? Go back to your normal diet after the procedure, unless your healthcare provider gives you other instructions. ? Take care of your bandage. Keep it clean and dry. Change it as instructed if it gets dirty or wet. ? Take your temperature every day for a week. This is done to help check for fever, which could be a sign of infection. You may have some aftereffects from the procedure. These may include: ? A small amount of bleeding. Your urine will be tinted with a small amount of blood for a day or 2 after the procedure. This is normal. ? Post-ablation syndrome. This can include fever and flu-like symptoms. You may have body aches, feel generally ill, and have nausea and vomiting. You may have a mild fever. You may have pain in your treated kidney. Symptoms may last up to 10 days, and then go away. Your healthcare provider may give you medicine to help reduce fever, pain, and nausea. ? Pain in your middle back. This may last for a few days. Take pain medicine as directed. ? Nerve pain or numbness. The freezing may damage nerves in the treatment area. This may cause prickly pain, tingling, or numbness. This may last for weeks or months. Your healthcare provider may prescribe medicine to help lessen nerve pain. Activities ? Do only light and easy activities for 2 to 3 days. ? Don?t do strenuous activity for 1 week. ? Don't drive until your healthcare provider says it?s OK. ? Exercise according to your healthcare provider's advice. ? Ask your healthcare provider when you can return to work. Follow-up care Make follow-up appointments with your healthcare provider as directed. You'll need to have tests to see how well the procedure worked and to check for signs of cancer later on. These tests may include: ? CT scan or MRI. These are imaging tests. A CT scan uses radiation to take a series of detailed X-ray images. An MRI uses large magnets and a computer to take images. You will have an imaging test to check your kidney 3 to 6 months after the procedure. You may then have follow-up imaging tests yearly, or as often as your healthcare provider advises. These are done to check for signs of cancer. ? Blood tests. These will be done to check the health of your kidneys and liver. ? Urine tests. These are used to check the health of your kidneys. ? Chest X-ray. This test uses a small amount of radiation to make images. This might be done to check for signs of cancer in the lungs. When to call your healthcare provider Call your healthcare provider right away if any of these occur: ? Unable to pass urine ? A lot of or increasing amounts of blood in your urine ? Chest pain ? Trouble breathing ? Blood in your urine after 2 days ? Not enough urine or no urine ? Pain that doesn?t get better after 2 days, or gets worse ? Fever of 100.4?F (38?C) or higher, or as directed by your healthcare provider ? Signs of infection at the needle site or incision, such as redness, swelling, drainage, or warmth Last Reviewed Date: 2022 00:00:00 ? [id number] [employer]. All rights reserved. This information is not intended as a substitute for professional medical care. Always follow your healthcare professional's instructions. [facility]2024-11-07 08:00:00 The patient is Moderately Stable - Low risk of patient condition declining or worsening [facility] 07:04:00 The patient is Moderately Stable - Low risk of patient condition declining or worsening [facility]2024-11-07 00:53:24 The patient is Moderately Stable - Low risk of patient condition declining or worsening The patient's goals for the shift include pain control The clinical goals for the shift include adequate pain control [facility] MedicineP[facility] CenterFtlnkuw9971-44-32 11:40:31* [facility] CenterEvwcwsy0747-70-31 11:40:31* Haven Shelby RN - 12/22/2023 11:30 AM CDT Pre-Registration: [facility] (Out-Patient Services 2nd Floor) Date: completed Time: PREPARATION: STOP all Blood Thinners, Aspirin, Aspirin products, Advil, Motrin, Aleve, Ibuprofen, Anti-Inflammatories (NSAIDS), Fish Oil, Omegas and GLP-1 medications 7 days prior to surgery. STOP taking: Aleve and Mounjaro Pharmacy: NO prior authorization will be obtained for any of the medications prescribed. You are asked to purchase. DAY BEFORE SURGERY: *CLEAR LIQUID DIET ONLY *2pm Magnesium Citrate - drink 1 10 ounce bottle *4pm, 5pm, 10pm: Take Neomycin (2 tablets) and Metronidazole (1 tablet) If Neomycin is backordered, you will only take Metronidazole *Shower with soap provided by hospital before going to bed * You may have clear liquids until 3 hours prior to surgery (Water ONLY after Midnight) DAY OF SURGERY: *Upon rising: Shower with soap provided by hospital *3 hours prior to surgery: Take Gabapentin 600 mg, Methocarbamol 750 mg, Celebrex 200 mg, and Tylenol 1000 mg (500mg tablets x2) *NOTHING further to drink after taking medications. Surgery DATE: 12/27/23 TIME: 8:30 ARRIVE AT: 6:30 POSTOP APPOINTMENT: call for appointment [facility] CenterGjvcdpl2198-92-91 11:40:31Upcoming Encounters Scheduled Procedures Name Priority Associated Diagnoses Date/Ti me NEPHRECTOMY, LAPAROSCOPIC Malign ant neoplasm of right kidney, except renal pelvis (HCC) 12/27/2023 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 Due Date Last Done Comments CT Colonography 1964 Colonoscopy 1964 FIT 1964 FOBT 1964 Lipid Panel 1964 Sigmoidoscopy 1964 Annual Physical 10/28/1967 DTaP/Tdap/Td Vaccines (1 - Tdap) 10/28/1983 Hepatitis B Vaccines (1 of 3 - 19+ 3-dose series) 10/28/1983 Pap Smear 1985 Cervical Cancer Screening 1994 HPV/Cotest 1994 Mammogram 2004 Zoster Vaccines (1 of 2) 2014 Influenza Vaccine (#1) 2023 Colorectal Cancer Screening 01/03/2025 FIT-DNA 01/03/2025 01/03/2022, 01/03/2022 HIB Vaccines Aged Out No longer eligi ble based on patient's age to complete this topic HPV Vaccines Aged Out No longer eligi ble based on patient's age to complete this topic Hepatitis A Vaccines Aged Out No long er eligible based on patient's age to complete this topic IPV Vaccines Aged Out No longer eligi ble based on patient's age to complete this topic Meningococcal Vaccine Aged Out No heather silverio eligible based on patient's age to complete this topic Pneumococcal Vaccine: Pediatrics (0 to 5 Years) and At-Risk Patients (6 to 64 Years) Aged Out No longer eligible b ased on patient's age to complete this topic Rotavirus Vaccines Aged Out No longer eligible based on patient's age to complete this topic [facility] CenterFzakckw9978-10-45 11:40:31 Diagnosis Malignant neoplasm of right kidney (HCC) Malignant neoplasm of right kidney, except renal pelvis (HCC) [facility] [id number] 11:40:31 [facility] CenterUxnrcjs0573-52-94 11:39:49 Images from the original note were not included. [id number] Discharge Instructions for Nephrectomy You had a procedure to remove a kidney. This is called a nephrectomy. This procedure was done because one of your kidneys was not working correctly or because there was a tumor or cancer. Nephrectomy is also done to remove a healthy kidney from a donor for transplantation. You can live a normal, healthy life with one kidney. Home care ? Shower as needed. Keep the wound dry with waterproof bandages that seal on all 4 sides. After showering, remove the waterproof pad and tape, then re-cover with a clean, dry bandage, or as directed by your provider. ? Don?t swim or use a bathtub or hot tub until after your follow-up appointment and your healthcare provider says it's OK. ? Keep your cut (incision) clean and dry. Don't scrub the incision. Wash it gently with mild soap and warm water and pat it dry. ? Eat a healthy, well-balanced diet. ? Drink 6 to 8 glasses of water a day, unless your healthcare provider tells you to limit your fluids. ? Try not to get constipated. o Use laxatives, stool softeners, or enemas as directed by your healthcare provider. o Eat more high-fiber foods. ? Don?t drive until you are off your pain medicine and pain-free. This may take 2 to 4 weeks. ? Don?t worry if you feel more tired than normal. Extreme tiredness (fatigue) and weakness are common for a few weeks after this surgery. Don't push yourself. Rest as needed. ? Limit your activity to short walks. Slowly increase your pace and distance as you feel able. ? Don't do any strenuous activities, such as mowing the lawn, vacuuming, or playing sports. ? Don?t lift anything heavier than 10 pounds for 4 weeks. ? Listen to your body. If an activity causes pain, stop. ? If you were asked to stop any medicines before the surgery, ask your healthcare provider when you may start taking them again. This is especially important in the case of blood thinners (anticoagulants or antiplatelet agents). Follow-up care Follow up with your healthcare provider, or as advised. When to call your healthcare provider Call your healthcare provider right away if you have any of the following: ? Fever of 100.4?F ( 38?C ) or higher, or as directed by your healthcare provider ? Redness, swelling, warmth, or pain at your incision site ? Drainage or pus from your incision ? Nausea or vomiting ? Increased pain ? Noticeable decrease in urine output ? Blood in your urine ? New or worsening symptoms Last Reviewed Date: 2021 00:00:00 ? 5717-7653 [employer]. All rights reserved. This information is not intended as a substitute for professional medical care. Always follow your healthcare professional's instructions. [facility] [id number] 11:15:39* [facility] [id number] 11:15:39* Nabila Metz MD - 12/22/2023 10:50 AM CDT [facility] Clinic Note Subjective Patient ID: Lissett Granger is a 58 y.o. female who presents for No chief complaint on file. HPI 58-year-old female with a past medical history of hypertension, prediabetes, pacemaker who on ultrasound for decreased renal function was found to have large right-sided renal mass. She was seen by Dr. Garcia underwent CT chest and MRI abdomen. CT showed sub-5 mm nodules and she had recently had COVID. MRI shows a 4.2 cm central endophytic right renal mass. There was a central scar therefore Unclear whether or not this was a renal cell carcinoma or oncocytoma. For this reason she underwent IR guided biopsy 11/23/2023. 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 Therefore referred to the clinic for evaluation. Imaging is independently reviewed there is a centrally located concerning right renal mass occupying the majority of the central part of the right kidney encroaching on the hilum. Most recent BMP from 10/04/2023 shows creatinine 1.08 with a EGFR of 60. Past abdominal surgical history consists of open hysterectomy with scar from "hip bone hip bone " in 2006 Plan: -Right renal cell carcinoma. Untreated this represents a life-threatening diagnosis. Unfortunate based on size location of right renal mass not a candidate for partial nephrectomy. Therefore recommend surgery with a hand-assisted laparoscopic right radical nephrectomy. -Due to her decreased renal function will order Lasix renal scan for split function. This would not change operative plan but may help guide treatment by nephrology in the postoperative setting. -She will need cardiology clearance -Discussed her diagnosis as well as the procedure in detail as below and she has agreed to proceed 12/22/2023: Returns clinic for follow-up of 4.2 cm endophytic right renal cell carcinoma Pre-clinic renal scan shows 45/55 right left split with no evidence of obstruction bilaterally Plan: -Proceed to the operating room for hand-assisted laparoscopic right radical nephrectomy -Cardiology clearance has been obtained The patient and I talked at length about treatment options for renal masses. Etiologies of renal masses were discussed with the patient at length including benign renal masses, malignant renal masses, solid renal masses, cystic renal masses, mixed solid and cystic renal masses, and others. Options discussed included serial x-ray imaging with CT scan, MRI scan and ultrasound as well as percutaneous biopsy of the renal mass. Surgical resection of the mass, both laparoscopic and open, partial and total nephrectomy, pathological grades of renal masses, stages of renal masses including possible local tony spread, local extension, renal vein involvement, and IVC involvement was discussed with the patient length. The risks, benefits, and possible complications of renal mass resection, radical nephrectomy, partial nephrectomy, cryoablation, simple nephrectomy, radical nephroureterectomy, postoperative chemotherapy, radiation therapy, immunotherapy, and others were discussed with the patient. Laparoscopic and open approaches were discussed in detail with patient We discussed the possible future recurrence of renal masses. Alternative treatment options were discussed with the patient in detail. All questions were answered. The patient gave fully informed consent to proceed with a hand-assisted laparoscopic radical nephrectomy for treatment of the renal mass. The patient was informed that in some cases there is the the possibility of a conversion to an open procedure. We discussed the procedure as well as recovery in detail. I counseled the patient he will have an overnight Jansen catheter and abdominal drain. We discussed general risks of abdominal surgeries which include pain, bleeding, infection, bowel injury, injury to intra-abdominal organs, heart attack, stroke, . We discussed the expected postoperative course, overnight Jansen catheterization. E&M visit today is associated with current or anticipated ongoing medical care services related to a patient's single, serious condition or a complex condition Approximately 30 minutes spent interpreting results and formulating a plan with the majority greater than 50% [id number] counseling Review of Systems Objective Physical Exam: There were no vitals taken for this visit. Abdomen soft nontender nondistended difficult to visualize her hysterectomy incision under her pannus Past Medical History: Diagnosis Date Cancer (CMS/HCC) (HCC) RIGHT KIDNEY History of cancer Renal Cell Carcinoma of right kidney Hyperlipidemia Hypertension Irregular heart beat PACEMAKERR Pre-diabetes There is no problem list on file for this patient. Past Surgical History: Procedure Laterality Date HYSTERECTOMY 2006? INSERT / REPLACE / REMOVE [employer] DR. YOLANDA PHILLIPS [phone] IR BIOPSY KIDNEY Left 11/23/2023 IR BIOPSY KIDNEY 11/23/2023 PL XR KNEE SURGERY Left OTHER SURGICAL HISTORY BACK CYST REMOVAL Family History: Problem Relation Name Age of Onset Hypertension Father Luciano Jackson Hypertension Mother Suri Jackson Heart disease Mother Suri Jackson Social History Socioeconomic History Marital status: Spouse name: Not on file Number of children: Not on file Years of education: Not on file Highest education level: Not on file Occupational History Not on file Tobacco Use Smoking status: Never Smokeless tobacco: Never Substance and Sexual Activity Alcohol use: Not Currently Drug use: Never Sexual activity: Not on file Other Topics Concern Not on file Social History Narrative Not on file Social Drivers of Health Financial Resource Strain: Not on file Food Insecurity: Not on file Transportation Needs: Not on file Physical Activity: Not on file Stress: Not on file Social Connections: Not on file Intimate Partner Violence: Not on file Housing Stability: Not on file No Known Allergies Assessment and plan: There are no diagnoses linked to this encounter. 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 Due Date Last Done Comments CT Colonography 1964 Colonoscopy 1964 FIT 1964 FOBT 1964 Lipid Panel 1964 Sigmoidoscopy 1964 Annual Physical 10/28/1967 DTaP/Tdap/Td Vaccines (1 - Tdap) 10/28/1983 Hepatitis B Vaccines (1 of 3 - 19+ 3-dose series) 10/28/1983 Pap Smear 1985 Cervical Cancer Screening 1994 HPV/Cotest 1994 Mammogram 2004 Zoster Vaccines (1 of 2) 2014 Influenza Vaccine (#1) 2023 Colorectal Cancer Screening 01/03/2025 FIT-DNA 01/03/2025 01/03/2022, 01/03/2022 HIB Vaccines Aged Out No longer eligi ble based on patient's age to complete this topic HPV Vaccines Aged Out No longer eligi ble based on patient's age to complete this topic Hepatitis A Vaccines Aged Out No long er eligible based on patient's age to complete this topic IPV Vaccines Aged Out No longer eligi ble based on patient's age to complete this topic Meningococcal Vaccine Aged Out No heather silverio eligible based on patient's age to complete this topic Pneumococcal Vaccine: Pediatrics (0 to 5 Years) and At-Risk Patients (6 to 64 Years) Aged Out No longer eligible b ased on patient's age to complete this topic Rotavirus Vaccines Aged Out No longer eligible based on patient's age to complete this topic [facility] [id number] 11:15:39 Diagnosis Malignant neoplasm of right kidney (HCC) - Primary Stage 1 chronic kidney disea se Malignant neoplasm of right kidney, except renal pelvis (HCC) [facility] [id number] 11:15:39 [facility] [id number] 00:45:21Upcoming Encounters Scheduled Procedures Name Priority Associated Diagnoses Date/Ti me NEPHRECTOMY, LAPAROSCOPIC Malign ant neoplasm of right kidney, except renal pelvis (HCC) 12/27/2023 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 Due Date Last Done Comments CT Colonography 1964 Colonoscopy 1964 FIT 1964 FOBT 1964 Lipid Panel 1964 Sigmoidoscopy 1964 Annual Physical 10/28/1967 DTaP/Tdap/Td Vaccines (1 - Tdap) 10/28/1983 Hepatitis B Vaccines (1 of 3 - 19+ 3-dose series) 10/28/1983 Pap Smear 1985 Cervical Cancer Screening 1994 HPV/Cotest 1994 Mammogram 2004 Zoster Vaccines (1 of 2) 2014 Influenza Vaccine (#1) 2023 Colorectal Cancer Screening 01/03/2025 FIT-DNA 01/03/2025 01/03/2022, 01/03/2022 HIB Vaccines Aged Out No longer eligi ble based on patient's age to complete this topic HPV Vaccines Aged Out No longer eligi ble based on patient's age to complete this topic Hepatitis A Vaccines Aged Out No long er eligible based on patient's age to complete this topic IPV Vaccines Aged Out No longer eligi ble based on patient's age to complete this topic Meningococcal Vaccine Aged Out No heather silverio eligible based on patient's age to complete this topic Pneumococcal Vaccine: Pediatrics (0 to 5 Years) and At-Risk Patients (6 to 64 Years) Aged Out No longer eligible b ased on patient's age to complete this topic Rotavirus Vaccines Aged Out No longer eligible based on patient's age to complete this topic [facility] [id number] 00:45:21 [facility] [id number] 10:46:53Upcoming Encounters Scheduled Procedures Name Priority Associated Diagnoses Date/Ti me NEPHRECTOMY, LAPAROSCOPIC Malign ant neoplasm of right kidney, except renal pelvis (HCC) 12/27/2023 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 Due Date Last Done Comments CT Colonography 1964 Colonoscopy 1964 FIT 1964 FOBT 1964 Lipid Panel 1964 Sigmoidoscopy 1964 DTaP/Tdap/Td Vaccines (1 - Tdap) 10/28/1983 Hepatitis B Vaccines (1 of 3 - 19+ 3-dose series) 10/28/1983 Pap Smear 1985 Cervical Cancer Screening 1994 HPV/Cotest 1994 Mammogram 2004 Zoster Vaccines (1 of 2) 2014 Influenza Vaccine (#1) 2023 Colorectal Cancer Screening 01/03/2025 FIT-DNA 01/03/2025 01/03/2022, 01/03/2022 HIB Vaccines Aged Out No longer eligi ble based on patient's age to complete this topic HPV Vaccines Aged Out No longer eligi ble based on patient's age to complete this topic Hepatitis A Vaccines Aged Out No long er eligible based on patient's age to complete this topic IPV Vaccines Aged Out No longer eligi ble based on patient's age to complete this topic Meningococcal Vaccine Aged Out No heather silverio eligible based on patient's age to complete this topic Pneumococcal Vaccine: Pediatrics (0 to 5 Years) and At-Risk Patients (6 to 64 Years) Aged Out No longer eligible b ased on patient's age to complete this topic Rotavirus Vaccines Aged Out No longer eligible based on patient's age to complete this topic [facility] [id number] 10:46:53 [facility] [id number] 10:46:53* [facility] [id number] 10:13:35* [facility] [id number] 10:13:35Upcoming Encounters Scheduled Procedures Name Priority Associated Diagnoses Date/Ti me NEPHRECTOMY, LAPAROSCOPIC Malign ant neoplasm of right kidney, except renal pelvis (HCC) 12/27/2023 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 Due Date Last Done Comments CT Colonography 1964 Colonoscopy 1964 FIT 1964 FOBT 1964 Lipid Panel 1964 Sigmoidoscopy 1964 DTaP/Tdap/Td Vaccines (1 - Tdap) 10/28/1983 Hepatitis B Vaccines (1 of 3 - 19+ 3-dose series) 10/28/1983 Pap Smear 1985 Cervical Cancer Screening 1994 HPV/Cotest 1994 Mammogram 2004 Zoster Vaccines (1 of 2) 2014 Influenza Vaccine (#1) 2023 Colorectal Cancer Screening 01/03/2025 FIT-DNA 01/03/2025 01/03/2022, 01/03/2022 HIB Vaccines Aged Out No longer eligi ble based on patient's age to complete this topic HPV Vaccines Aged Out No longer eligi ble based on patient's age to complete this topic Hepatitis A Vaccines Aged Out No long er eligible based on patient's age to complete this topic IPV Vaccines Aged Out No longer eligi ble based on patient's age to complete this topic Meningococcal Vaccine Aged Out No heather silverio eligible based on patient's age to complete this topic Pneumococcal Vaccine: Pediatrics (0 to 5 Years) and At-Risk Patients (6 to 64 Years) Aged Out No longer eligible b ased on patient's age to complete this topic Rotavirus Vaccines Aged Out No longer eligible based on patient's age to complete this topic [facility] [id number] 10:13:35 [facility] HospitalIhfobdq6188-34-66 16:58:28 Jovan with [facility] left a vm requesting a call back to clarify directions on a rx recently sent. Jovan did not leave the name of the rx. Call back number [phone]. Sugey Elizondo2024-10-22 00:44:06* Imaging (Routine) - Authorized Specialty Diagnoses / Procedures Referred By Contac t Referred To Contact Radiology Diagnoses Hydronephrosis, unspecified hydronephrosis type Procedures NM kidney flow/[place] [id number] [address] Phone: tel: fax: Referral ID Status Reason Start Date Expiration Date V isits Requested Visits Authorized [id number] Authorized 12/04/2023 06/01/2024 3 1 [facility] [id number] 00:44:06* Imaging (Routine) - Authorized Specialty Diagnoses / Procedures Referred By Contac t Referred To Contact Radiology Diagnoses Hydronephrosis, unspecified hydronephrosis type Procedures NM kidney flow/[place] [id number] [address] Phone: tel: fax: Referral ID Status Reason Start Date Expiration Date V isits Requested Visits Authorized [id number] Authorized 12/04/2023 06/01/2024 3 1 [facility] [id number] 00:44:06Upcoming Encounters Pending Results Name Type Priority Associated Diagnoses Date /Time NM kidney flow/function w diuretic Imaging Routine Hydronephrosis, unspecified hydronephrosis type 12/11/2023 1:33 PM CDT Scheduled Orders Name Type Priority Associated Diagnoses Orde r Schedule NM kidney flow/function w diuretic Imaging Routine Hydronephrosis, unspecified hydronephrosis type Once for 1 Occurrences starting 12/11/2023 until 12/11/2023 Scheduled Procedures Name Priority Associated Diagnoses Date/Ti me NEPHRECTOMY, LAPAROSCOPIC Malign ant neoplasm of right kidney, except renal pelvis (HCC) 12/27/2023 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 Due Date Last Done Comments CT Colonography 1964 Colonoscopy 1964 FIT 1964 FOBT 1964 Lipid Panel 1964 Sigmoidoscopy 1964 DTaP/Tdap/Td Vaccines (1 - Tdap) 10/28/1983 Hepatitis B Vaccines (1 of 3 - 19+ 3-dose series) 10/28/1983 Pap Smear 1985 Cervical Cancer Screening 1994 HPV/Cotest 1994 Mammogram 2004 Zoster Vaccines (1 of 2) 2014 Influenza Vaccine (#1) 2023 Colorectal Cancer Screening 01/03/2025 FIT-DNA 01/03/2025 01/03/2022, 01/03/2022 HIB Vaccines Aged Out No longer eligi ble based on patient's age to complete this topic HPV Vaccines Aged Out No longer eligi ble based on patient's age to complete this topic Hepatitis A Vaccines Aged Out No long er eligible based on patient's age to complete this topic IPV Vaccines Aged Out No longer eligi ble based on patient's age to complete this topic Meningococcal Vaccine Aged Out No heather silverio eligible based on patient's age to complete this topic Pneumococcal Vaccine: Pediatrics (0 to 5 Years) and At-Risk Patients (6 to 64 Years) Aged Out No longer eligible b ased on patient's age to complete this topic Rotavirus Vaccines Aged Out No longer eligible based on patient's age to complete this topic [facility] [id number] 00:44:06 Diagnosis Hydronephrosis, unspecified hydronephrosis type Malignant neoplasm of right kidney, except renal pelvis (HCC) [facility] CenterPacivpi5536-60-74 00:44:06 [facility] CenterTfowbzw9229-06-05 10:51:22* [facility] CenterFoirpht2258-66-36 10:51:22Upcoming Encounters Scheduled Procedures Name Priority Associated Diagnoses Date/Ti me NEPHRECTOMY, LAPAROSCOPIC Malign ant neoplasm of right kidney, except renal pelvis (HCC) 01/02/2024 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 Due Date Last Done Comments CT Colonography 1964 Colonoscopy 1964 FIT 1964 FOBT 1964 Lipid Panel 1964 Sigmoidoscopy 1964 DTaP/Tdap/Td Vaccines (1 - Tdap) 10/28/1983 Hepatitis B Vaccines (1 of 3 - 19+ 3-dose series) 10/28/1983 Pap Smear 1985 Cervical Cancer Screening 1994 HPV/Cotest 1994 Mammogram 2004 Zoster Vaccines (1 of 2) 2014 Influenza Vaccine (#1) 2023 Colorectal Cancer Screening 01/03/2025 FIT-DNA 01/03/2025 01/03/2022, 01/03/2022 HIB Vaccines Aged Out No longer eligi ble based on patient's age to complete this topic HPV Vaccines Aged Out No longer eligi ble based on patient's age to complete this topic Hepatitis A Vaccines Aged Out No long er eligible based on patient's age to complete this topic IPV Vaccines Aged Out No longer eligi ble based on patient's age to complete this topic Meningococcal Vaccine Aged Out No heather silverio eligible based on patient's age to complete this topic Pneumococcal Vaccine: Pediatrics (0 to 5 Years) and At-Risk Patients (6 to 64 Years) Aged Out No longer eligible b ased on patient's age to complete this topic Rotavirus Vaccines Aged Out No longer eligible based on patient's age to complete this topic [facility] [id number] 10:51:22 [facility] CenterTccbchu7941-47-27 10:10:51* Imaging (Routine) - Pending Review Specialty Diagnoses / Procedures Referred By Pamela t Referred To Contact Radiology Diagnoses Hydronephrosis, unspecified hydronephrosis type Procedures NM kidney flow/[place] [id number] [address] Phone: tel: fax: Referral ID Status Reason Start Date Expiration Date V isits Requested Visits Authorized [id number] Pending Review 12/04/2023 06/01/2024 3 3 [facility] HospitalQwhqimy5077-21-58 10:10:51* Sylwia ElizondoMqahtlf6422-45-49 10:10:51* Nabila Metz MD - 12/04/2023 9:00 AM CDT [facility] Clinic Note Subjective Patient ID: Lissett Granger is a 58 y.o. female who presents for Chief Complaint Patient presents with [employer] MAN REFFERED BY HPI 58-year-old female with a past medical history of hypertension, prediabetes, pacemaker who on ultrasound for decreased renal function was found to have large right-sided renal mass. She was seen by Dr. Garcia underwent CT chest and MRI abdomen. CT showed sub-5 mm nodules and she had recently had COVID. MRI shows a 4.2 cm central endophytic right renal mass. There was a central scar therefore Unclear whether or not this was a renal cell carcinoma or oncocytoma. For this reason she underwent IR guided biopsy 11/23/2023. 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 Therefore referred to the clinic for evaluation. Imaging is independently reviewed there is a centrally located concerning right renal mass occupying the majority of the central part of the right kidney encroaching on the hilum. Most recent BMP from 10/04/2023 shows creatinine 1.08 with a EGFR of 60. Past abdominal surgical history consists of open hysterectomy with scar from "hip bone hip bone " in 2006 Plan: -Right renal cell carcinoma. Untreated this represents a life-threatening diagnosis. Unfortunate based on size location of right renal mass not a candidate for partial nephrectomy. Therefore recommend surgery with a hand-assisted laparoscopic right radical nephrectomy. -Due to her decreased renal function will order Lasix renal scan for split function. This would not change operative plan but may help guide treatment by nephrology in the postoperative setting. -She will need cardiology clearance -Discussed her diagnosis as well as the procedure in detail as below and she has agreed to proceed The patient and I talked at length about treatment options for renal masses. Etiologies of renal masses were discussed with the patient at length including benign renal masses, malignant renal masses, solid renal masses, cystic renal masses, mixed solid and cystic renal masses, and others. Options discussed included serial x-ray imaging with CT scan, MRI scan and ultrasound as well as percutaneous biopsy of the renal mass. Surgical resection of the mass, both laparoscopic and open, partial and total nephrectomy, pathological grades of renal masses, stages of renal masses including possible local tony spread, local extension, renal vein involvement, and IVC involvement was discussed with the patient length. The risks, benefits, and possible complications of renal mass resection, radical nephrectomy, partial nephrectomy, cryoablation, simple nephrectomy, radical nephroureterectomy, postoperative chemotherapy, radiation therapy, immunotherapy, and others were discussed with the patient. Laparoscopic and open approaches were discussed in detail with patient We discussed the possible future recurrence of renal masses. Alternative treatment options were discussed with the patient in detail. All questions were answered. The patient gave fully informed consent to proceed with a hand-assisted laparoscopic radical nephrectomy for treatment of the renal mass. The patient was informed that in some cases there is the the possibility of a conversion to an open procedure. We discussed the procedure as well as recovery in detail. I counseled the patient he will have an overnight Jansen catheter and abdominal drain. We discussed general risks of abdominal surgeries which include pain, bleeding, infection, bowel injury, injury to intra-abdominal organs, heart attack, stroke, . We discussed the expected postoperative course, overnight Jansen catheterization. E&M visit today is associated with current or anticipated ongoing medical care services related to a patient's single, serious condition or a complex condition Review of Systems Objective Physical Exam: There were no vitals taken for this visit. Abdomen soft nontender nondistended difficult to visualize her hysterectomy incision under her pannus Past Medical History: Diagnosis Date Hypertension Pre-diabetes There is no problem list on file for this patient. Past Surgical History: Procedure Laterality Date HYSTERECTOMY INSERT / REPLACE / REMOVE PACEMAKER IR BIOPSY KIDNEY Left 11/23/2023 IR BIOPSY KIDNEY 11/23/2023 PL XR Family History: Problem Relation Name Age of Onset Hypertension Father Hypertension Mother Social History Socioeconomic History Marital status: Spouse name: Not on file Number of children: Not on file Years of education: Not on file Highest education level: Not on file Occupational History Not on file Tobacco Use Smoking status: Never Smokeless tobacco: Never Substance and Sexual Activity Alcohol use: Not Currently Drug use: Never Sexual activity: Not on file Other Topics Concern Not on file Social History Narrative Not on file Social Drivers of Health Financial Resource Strain: Not on file Food Insecurity: Not on file Transportation Needs: Not on file Physical Activity: Not on file Stress: Not on file Social Connections: Not on file Intimate Partner Violence: Not on file Housing Stability: Not on file No Known Allergies Assessment and plan: Diagnoses and all orders for this visit: Malignant neoplasm of right kidney (HCC) Stage 1 chronic kidney disease Hydronephrosis, unspecified hydronephrosis type - NM kidney flow/function w diuretic; Future Nabila Metz MD [facility] Office: [phone] [facility]2024-10-14 10:10:51Upcoming Encounters Scheduled Orders Name Type Priority Associated Diagnoses Orde r Schedule NM kidney flow/function w diuretic Imaging Routine Hydronephrosis, unsp ecified hydronephrosis type Expected: 12/04/2023, Expires: 12/03/2024 Health Maintenance Due Date Last Done Comments CT Colonography 1964 Colonoscopy 1964 FIT 1964 FOBT 1964 Lipid Panel 1964 Sigmoidoscopy 1964 DTaP/Tdap/Td Vaccines (1 - Tdap) 10/28/1983 Hepatitis B Vaccines (1 of 3 - 19+ 3-dose series) 10/28/1983 Pap Smear 1985 Cervical Cancer Screening 1994 HPV/Cotest 1994 Mammogram 2004 Zoster Vaccines (1 of 2) 2014 Influenza Vaccine (#1) 2023 Colorectal Cancer Screening 01/03/2025 FIT-DNA 01/03/2025 01/03/2022, 01/03/2022 HIB Vaccines Aged Out No longer eligi ble based on patient's age to complete this topic HPV Vaccines Aged Out No longer eligi ble based on patient's age to complete this topic Hepatitis A Vaccines Aged Out No long er eligible based on patient's age to complete this topic IPV Vaccines Aged Out No longer eligi ble based on patient's age to complete this topic Meningococcal Vaccine Aged Out No heather silverio eligible based on patient's age to complete this topic Pneumococcal Vaccine: Pediatrics (0 to 5 Years) and At-Risk Patients (6 to 64 Years) Aged Out No longer eligible b ased on patient's age to complete this topic Rotavirus Vaccines Aged Out No longer eligible based on patient's age to complete this topic [facility]ir8997[facility] 10:10:51 Diagnosis Malignant neoplasm of right kidney (HCC) - Primary Stage 1 chronic kidney disea se Hydronephrosis, unspecified hydronephrosis type [facility]Rqfgzid4631-20-05 10:10:51 [facility]fyllcq6558-12-57 09:45:12* [facility]Sbakjvm7563-46-04 09:45:12* Keena Garcia MD - 12/04/2023 9:30 AM CDT Subjective Lissett Granger is a 58 y.o. female who presents for evaluation of a renal mass She has hypertension, prediabetes and a pacemaker She reports that she underwent imaging after she was noted to have decreased kidney function. Initially renal ultrasound showed a possible renal mass. She then underwent a CT urogram which demonstrated an endophytic 4 cm mass with features concerning for RCC. She denies any gross hematuria. She denies significant lower urinary tract symptoms. Patient denies a history of previous infection, urolithiasis, trauma, cancer, and surgery Patient denies a history of smoking currently, past smoking, chronic urinary tract infection, chronic indwelling foreign body, pelvic irradiation, occupational chemical/dye exposure, analgesic abuse, and carcinogenic exposure (i.e. chemotherapy) Prior workup has been CT urogram. Patient works in [place] I reviewed the imaging extensively with the patient and her . She has an approximate 4 cm endophytic lower pole mass which is either compressing the collecting system or arising from the collecting system per my review. There is no report with her today. We discussed treatments for renal tumors broadly and discussed surgery. Based on where the tumor is located I am not sure that she is a candidate for partial nephrectomy Will obtain imaging with an MRI abdomen and a CT chest as well as labs May consider renal Lasix scan in the future however this will unlikely change the plan but give us more information in the future Follow-up on a Monday or Monday so that she can see myself and Dr. Metz for treatment planning 11/08/2023 Presents for follow-up with CT chest and MRI abdomen CT chest demonstrates sub-5 mm nodules. She states that she had COVID earlier this year and was told that she had damage to her lungs as a result MRI demonstrates an approximate 4 cm heterogeneous enhancing mass in the interpolar region of the right kidney with a pseudocapsule and a small central scar, differential diagnosis being RCC versus oncocytoma Discussed that in the setting of the scar we may want to consider a biopsy however a biopsy may not be able to differentiate a benign and malignant mass. I explained that the imaging is concerning for RCC and if that is the case surgery would be the treatment Will refer to IR for biopsy and have her follow-up with me or Dr. Metz for the results on Monday Will need to monitor her chest imaging 12/04/2023 Patient presents today for follow-up after her kidney biopsy which demonstrated renal cell carcinoma. She states that she had some pain at the time of biopsy but since then has been doing well. Denies any fever chills nausea vomiting. Denies any hematuria. I discussed with her the findings of the biopsy and also discussed treatment with her. At this point the standard of care would be surgical removal of her kidney. This is a condition that if left untreated can be potentially life-threatening. As I do not perform this procedure I will refer her to one of my partners for consultation Discussed that she will need long-term follow-up for about 5 years Review of Systems Pertinent items are noted in HPI. Objective Ht 1.6 m (5' 3") | Wt 94.5 kg (208 lb 4.8 oz) | BMI 36.90 kg/m? General Appearance: Alert, cooperative, no distress, appropriate for age HEENT: Normocephalic, EOM's intact, conjunctiva and corneas clear, moist mucous membranes Lungs: Respirations unlabored Back: no CVA tenderness Abdomen: Soft, non-tender, bowel sounds active all four quadrants, no mass, or organomegaly Musculoskeletal: Tone and strength strong and symmetrical, all extremities Skin/Hair/Nails: Skin warm, dry, and intact, no rashes or abnormal dyspigmentation Neurologic: Alert and oriented x3 Past Medical History: Diagnosis Date Hypertension Pre-diabetes There is no problem list on file for this patient. Past Surgical History: Procedure Laterality Date HYSTERECTOMY INSERT / REPLACE / REMOVE PACEMAKER IR BIOPSY KIDNEY Left 11/23/2023 IR BIOPSY KIDNEY 11/23/2023 PL XR Family History: Problem Relation Name Age of Onset Hypertension Father Hypertension Mother Social History Socioeconomic History Marital status: Spouse name: Not on file Number of children: Not on file Years of education: Not on file Highest education level: Not on file Occupational History Not on file Tobacco Use Smoking status: Never Smokeless tobacco: Never Substance and Sexual Activity Alcohol use: Not Currently Drug use: Never Sexual activity: Not on file Other Topics Concern Not on file Social History Narrative Not on file Social Drivers of Health Financial Resource Strain: Not on file Food Insecurity: Not on file Transportation Needs: Not on file Physical Activity: Not on file Stress: Not on file Social Connections: Not on file Intimate Partner Violence: Not on file Housing Stability: Not on file No Known Allergies Results Review IR biopsy abdomen kidney PROCEDURE INFORMATION: Exam: IR Right Nephroureteral Procedure Exam date and time: 11/23/2023 9:57 AM Age: 58 years old Clinical indication: Other specified disorders of kidney and ureter; Additional info: Renal mass/right side TECHNIQUE: Imaging protocol: Right Nephroureteral procedure. The interpreting physician was present and supervised the procedure. CT guidance was provided. Radiation optimization: All CT scans at this facility use at least one of these dose optimization techniques: automated exposure control; mA and/or kV adjustment per patient size (includes targeted exams where dose is matched to clinical indication); or iterative reconstruction. COMPARISON: ABDOMEN W/WO CONTRAST MRI 10/31/2023 11:16 AM RADIATION DOSE METRICS: Total DLP (mGy-cm): 2290.64 FINDINGS: Advanced practice providers: None. CONSENT AND SEDATION INFO: Consent: The risks, benefits and alternatives of the procedure were discussed prior to the procedure. Informed consent was obtained. Time out: Timeout was performed prior to the procedure. Level of sedation: I administered moderate sedation throughout this procedure. The patient was monitored and observed by a hospital nurse, an independent trained observer. The nurse pushed medications at my direction and monitored the patient's level of consciousness and physiological status throughout. Moderate sedation record is permanently stored in the hospital information system. Medications for sedation: 2 mg of IV Versed and 100 mcg of IV Fentanyl. Total intra-service sedation time (minutes): The personal supervised moderate sedation time was 10 minutes. Sterile technique: All elements of maximal sterile barrier technique were followed which include cap, mask, sterile gown, sterile gloves, sterile full-body drape, hand hygiene, 2% chlorhexidine for cutaneous antisepsis (skin prep), sterile ultrasound gel, and sterile probe cover. Procedure summary: The patient was brought to the CT room and was placed prone on the table. Initial CT images of the abdomen were obtained and an access site was marked. 1% lidocaine was injected to locally anesthetize the skin and underlying tissues. Under CT guidance, a coaxial 17 gauge biopsy system was advanced into the right renal mass. Next, 3 x 18 gauge cores were obtained. Gelfoam pledgets were injected and the needle was removed. A final set of images were obtained. A dressing was applied. Procedural imaging: Multiple CT images demonstrating different steps of the procedure. Complications: No immediate complications. IMPRESSION: CT-guided biopsy of a right renal mass as detailed. Maycol Mcelroy MD On 11/23/2023 14:10:17; [id number] - Read by: Maycol Mcelroy MD Dictated Date/time: 11/23/23 14:11 Electronically Signed by: Maycol Mcelroy MD 11/23/23 14:11 FINAL REPORT Lab Results Component Value Date POC Glucose 88 11/23/2023 Calcium Lvl 9.4 10/04/2023 Sodium Lvl 138 10/04/2023 Potassium Lvl 4.1 10/04/2023 CO2 Lvl 28 10/04/2023 Chloride Lvl 102 10/04/2023 BUN 27 (H) 10/04/2023 POC Creatinine 1.4 10/31/2023 Lab Results Component Value Date WBC 6.60 11/23/2023 Hgb 12.7 11/23/2023 Hct 37.8 11/23/2023 MCV 82.0 11/23/2023 Plt Count 221 11/23/2023 Assessment and Plan Diagnoses and all orders for this visit: Malignant neoplasm of right kidney (HCC) [facility]dadck3082-43-34 09:45:12 [facility]Oirbzky0282-64-14 09:45:12 Diagnosis Malignant neoplasm of right kidney (HCC) - Primary [facility] CenterDibgdhh4624-40-50 09:45:12 [facility] CenterIsjnzcy3688-15-77 14:56:50* Consultation (Routine) - Pending Review Specialty Diagnoses / Procedures Referred By Contac t Referred To Contact Interventional Radiology Diagnoses Renal mass Lung nodules Procedures OR OFFICE/OUTPATIENT NEW HIGH MDM 60-[place] [id number] [facility] [address] [place] [phone] Phone: tel: fax: Referral ID Status Reason Start Date Expiration Date Visits Requested Visits Authorized [id number] Pending Review Specialty Services Required 11/08/2023 05/06/2024 1 1 [facility]Jyrhaeo0501-51-04 14:56:50* [facility] HospitalRjyuukc8730-43-61 14:56:50* Keena Garcia MD - 11/08/2023 11:00 AM CDT Subjective Lissett Granger is a 58 y.o. female who presents for evaluation of a renal mass She has hypertension, prediabetes and a pacemaker She reports that she underwent imaging after she was noted to have decreased kidney function. Initially renal ultrasound showed a possible renal mass. She then underwent a CT urogram which demonstrated an endophytic 4 cm mass with features concerning for RCC. She denies any gross hematuria. She denies significant lower urinary tract symptoms. Patient denies a history of previous infection, urolithiasis, trauma, cancer, and surgery Patient denies a history of smoking currently, past smoking, chronic urinary tract infection, chronic indwelling foreign body, pelvic irradiation, occupational chemical/dye exposure, analgesic abuse, and carcinogenic exposure (i.e. chemotherapy) Prior workup has been CT urogram. Patient works in [place] I reviewed the imaging extensively with the patient and her . She has an approximate 4 cm endophytic lower pole mass which is either compressing the collecting system or arising from the collecting system per my review. There is no report with her today. We discussed treatments for renal tumors broadly and discussed surgery. Based on where the tumor is located I am not sure that she is a candidate for partial nephrectomy Will obtain imaging with an MRI abdomen and a CT chest as well as labs May consider renal Lasix scan in the future however this will unlikely change the plan but give us more information in the future Follow-up on a Monday or Monday so that she can see myself and Dr. Metz for treatment planning 11/08/2023 Presents for follow-up with CT chest and MRI abdomen CT chest demonstrates sub-5 mm nodules. She states that she had COVID earlier this year and was told that she had damage to her lungs as a result MRI demonstrates an approximate 4 cm heterogeneous enhancing mass in the interpolar region of the right kidney with a pseudocapsule and a small central scar, differential diagnosis being RCC versus oncocytoma Discussed that in the setting of the scar we may want to consider a biopsy however a biopsy may not be able to differentiate a benign and malignant mass. I explained that the imaging is concerning for RCC and if that is the case surgery would be the treatment Will refer to IR for biopsy and have her follow-up with me or Dr. Metz for the results on Monday Will need to monitor her chest imaging Review of Systems Pertinent items are noted in HPI. Objective Ht 1.6 m (5' 3") | Wt 92.5 kg (204 lb) | BMI 36.14 kg/m? General Appearance: Alert, cooperative, no distress, appropriate for age HEENT: Normocephalic, EOM's intact, conjunctiva and corneas clear, moist mucous membranes Lungs: Respirations unlabored Back: no CVA tenderness Abdomen: Soft, non-tender, bowel sounds active all four quadrants, no mass, or organomegaly Musculoskeletal: Tone and strength strong and symmetrical, all extremities Skin/Hair/Nails: Skin warm, dry, and intact, no rashes or abnormal dyspigmentation Neurologic: Alert and oriented x3 Past Medical History: Diagnosis Date Hypertension Pre-diabetes There is no problem list on file for this patient. Past Surgical History: Procedure Laterality Date HYSTERECTOMY INSERT / REPLACE / REMOVE PACEMAKER Family History: Problem Relation Name Age of Onset Hypertension Father Hypertension Mother Social History Socioeconomic History Marital status: Spouse name: Not on file Number of children: Not on file Years of education: Not on file Highest education level: Not on file Occupational History Not on file Tobacco Use Smoking status: Never Smokeless tobacco: Never Substance and Sexual Activity Alcohol use: Not Currently Drug use: Never Sexual activity: Not on file Other Topics Concern Not on file Social History Narrative Not on file Social Drivers of Health Financial Resource Strain: Not on file Food Insecurity: Not on file Transportation Needs: Not on file Physical Activity: Not on file Stress: Not on file Social Connections: Not on file Intimate Partner Violence: Not on file Housing Stability: Not on file No Known Allergies Results Review MRI abdomen w and wo contrast EXAM: MR ABDOMEN WITHOUT AND WITH CONTRAST DATE: 10/31/2023 11:10 INDICATION: Renal mass evaluation, Other specified disorders of kidney and ureter COMPARISON: None. TECHNIQUE: Multiplanar, multisequence acquisition of the abdomen both prior to and following intravenous contrast, per renal mass protocol. IV contrast: Yes Enteric contrast: None. FINDINGS: Lines, tubes and hardware: None. Lower thorax: Clear. Liver: Normal. Biliary tree: No intra- or extrahepatic bile duct dilation. Gallbladder: Gallstones identified. No inflammation. Pancreas: Normal. Spleen: Normal. Adrenals: Normal. Kidneys and ureters: Right: Renal parenchyma: Normal in appearance. Renal cortex and enhancement: Normal. Renal cysts/masses: T1 hypointense, heterogeneous T2 hyperintense and heterogeneously enhancing mass in posterior interpolar region measuring 4 x 4.2 x 3.4 cm (series 1401, image 69 and series 2201, image 48) with minimal diffusion restriction. The lesion is well-defined with peripheral T2 hypointense pseudocapsule and central T2 hypointense scar (series 501, image 27 and series 601, image 29). Additional 2.6 cm simple cyst at superior pole. Collecting system/ureters: Single ureter/collecting system. Urothelial lesions: None. Hydronephrosis: None. Contrast excretion: Normal. Left: Renal parenchyma: Normal in appearance. Renal cortex and enhancement: Normal. Renal cysts/masses: None. Collecting system/ureters: Single ureter/collecting system. Urothelial lesions: None. Hydronephrosis: None. Contrast excretion: Normal. Gastrointestinal tract: Lower esophagus: Normal. Stomach: Normal. Visualized Small bowel: Normal. Visualized Colon: Normal. Peritoneum, mesentery and retroperitoneum: No free air, ascites or loculated fluid. Lymph nodes: Normal. Vasculature: Aorta and branches: Normal. IVC and veins: Normal. Portal and mesenteric vasculature: Normal. Bones: Posterior disc bulge and buckling of ligamentum flavum resulting in severe spinal canal narrowing at L4-L5 (series 301, image 4 and series 201, image 13). Soft tissues: Normal. IMPRESSION: 1. A 4.2 cm heterogeneously enhancing mass in posterior interpolar region of right kidney with well-defined pseudocapsule, small central scar and absence of perinephric or vascular invasion. Differentials include renal cell carcinoma versus renal oncocytoma. 2. No regional metastatic disease in abdomen. 3. Cholelithiasis without evidence of cholecystitis. 4. Degenerative changes in lumbar spine with severe spinal canal stenosis at L4-L5. - - This report was dictated by a Motor Coach Tour Operator/Fellow/Physician Estate Planning Counselor. I have personally reviewed the images as well as the interpretation and agree with the findings. Read by: Ramana Quintero MD Resident/Fellow/Physician Estate Planning Counselor: Ramana Quintero MD Dictated Date/time: 10/31/23 14:22 Electronically Signed by: Eloy Singh MD 10/31/23 16:10 FINAL REPORT Lab Results Component Value Date Glucose Lvl 104 (H) 10/04/2023 Calcium Lvl 9.4 10/04/2023 Sodium Lvl 138 10/04/2023 Potassium Lvl 4.1 10/04/2023 CO2 Lvl 28 10/04/2023 Chloride Lvl 102 10/04/2023 BUN 27 (H) 10/04/2023 POC Creatinine 1.4 10/31/2023 Lab Results Component Value Date WBC X 10x3 8.7 10/04/2023 Hgb 12.4 10/04/2023 Hct 38.7 10/04/2023 MCV 85.6 10/04/2023 Platelet 250 10/04/2023 Assessment and Plan Diagnoses and all orders for this visit: Renal mass - Ambulatory referral to Interventional Radiology; Future Lung nodules - Ambulatory referral to Interventional Radiology; Future [facility]2024-09-18 14:56:50Upcoming Encounters Scheduled Referrals Name Type Priority Associated Diagnoses Order Schedule Ambulatory referral to Interventional Radiology Outpatient Referral Routine Renal mass Lung nodules Expected: 11/08/2023 (Approximate), Expires: 05/07/2024 Health Maintenance Due Date Last Done Comments CT Colonography 1964 Colonoscopy 1964 FIT 1964 FOBT 1964 Sigmoidoscopy 1964 DTaP/Tdap/Td Vaccines (1 - Tdap) 10/28/1983 Hepatitis B Vaccines (1 of 3 - 19+ 3-dose series) 10/28/1983 Pap Smear 1985 Cervical Cancer Screening 1994 HPV/Cotest 1994 Mammogram 2004 Zoster Vaccines (1 of 2) 2014 Influenza Vaccine (#1) 2023 Colorectal Cancer Screening 01/03/2025 FIT-DNA 01/03/2025 01/03/2022, 01/03/2022 HIB Vaccines Aged Out No longer eligi ble based on patient's age to complete this topic HPV Vaccines Aged Out No longer eligi ble based on patient's age to complete this topic Hepatitis A Vaccines Aged Out No long er eligible based on patient's age to complete this topic IPV Vaccines Aged Out No longer eligi ble based on patient's age to complete this topic Meningococcal Vaccine Aged Out No heather silverio eligible based on patient's age to complete this topic Pneumococcal Vaccine: Pediatrics (0 to 5 Years) and At-Risk Patients (6 to 64 Years) Aged Out No longer eligible b ased on patient's age to complete this topic Rotavirus Vaccines Aged Out No longer eligible based on patient's age to complete this topic [place] [id number] 14:56:50 Diagnosis Renal mass - Primary Unspecified disorder of kidney and ureter Lung nodules Other diseases of lung, not elsewhere classified [facility]yjyltw7869-35-34 14:56:50 [facility] CenterXxufrwp1196-13-60 17:48:43* Imaging (Routine) - Pending Review Specialty Diagnoses / Procedures Referred By Contac t Referred To Contact Radiology Diagnoses Renal mass Procedures CT chest [place] [address] [address] [place] [phone] Referral ID Status Reason Start Date Expiration Date V isits Requested Visits Authorized [id number] Pending Review 10/03/2023 03/31/2024 1 1 * Imaging (Routine) - Pending Review Specialty Diagnoses / Procedures Referred By Contac t Referred To Contact Radiology Diagnoses Renal mass Procedures MRI abdomen [place] [id number] [address] [place] [phone] Referral ID Status Reason Start Date Expiration Date V isits Requested Visits Authorized [id number] Pending Review 10/03/2023 03/31/2024 1 1 [facility] CenterTytmspj8562-20-51 17:48:43* DILSHAD Medina - 10/03/2023 3:00 PM CDT Patient has a 4cm mass on right kidney. Patient does have ct with her. * Keena Garcia MD - 10/03/2023 3:00 PM CDT Subjective Lissett Granger is a 57 y.o. female who presents for evaluation of a renal mass She has hypertension, prediabetes and a pacemaker She reports that she underwent imaging after she was noted to have decreased kidney function. Initially renal ultrasound showed a possible renal mass. She then underwent a CT urogram which demonstrated an endophytic 4 cm mass with features concerning for RCC. She denies any gross hematuria. She denies significant lower urinary tract symptoms. Patient denies a history of previous infection, urolithiasis, trauma, cancer, and surgery Patient denies a history of smoking currently, past smoking, chronic urinary tract infection, chronic indwelling foreign body, pelvic irradiation, occupational chemical/dye exposure, analgesic abuse, and carcinogenic exposure (i.e. chemotherapy) Prior workup has been CT urogram. Patient works in [employer] I reviewed the imaging extensively with the patient and her . She has an approximate 4 cm endophytic lower pole mass which is either compressing the collecting system or arising from the collecting system per my review. There is no report with her today. We discussed treatments for renal tumors broadly and discussed surgery. Based on where the tumor is located I am not sure that she is a candidate for partial nephrectomy Will obtain imaging with an MRI abdomen and a CT chest as well as labs May consider renal Lasix scan in the future however this will unlikely change the plan but give us more information in the future Follow-up on a Monday or Monday so that she can see myself and Dr. Metz for treatment planning Review of Systems Pertinent items are noted in HPI. Objective BP 131/59 (BP Cuff Size: Large adult) | Pulse 60 | Temp 37.1 ?C (98.8 ?F) (Oral) | Resp 17 | Ht 1.6 m (5' 3") | Wt 95.7 kg (211 lb) | SpO2 98% | BMI 37.38 kg/m? General Appearance: Alert, cooperative, no distress, appropriate for age HEENT: Normocephalic, EOM's intact, conjunctiva and corneas clear, moist mucous membranes Lungs: Respirations unlabored Back: no CVA tenderness Abdomen: Soft, non-tender, bowel sounds active all four quadrants, no mass, or organomegaly Musculoskeletal: Tone and strength strong and symmetrical, all extremities Skin/Hair/Nails: Skin warm, dry, and intact, no rashes or abnormal dyspigmentation Neurologic: Alert and oriented x3 Past Medical History: Diagnosis Date Hypertension Pre-diabetes There is no problem list on file for this patient. Past Surgical History: Procedure Laterality Date HYSTERECTOMY INSERT / REPLACE / REMOVE PACEMAKER Family History: Problem Relation Name Age of Onset Hypertension Father Hypertension Mother Social History Socioeconomic History Marital status: Spouse name: Not on file Number of children: Not on file Years of education: Not on file Highest education level: Not on file Occupational History Not on file Tobacco Use Smoking status: Never Smokeless tobacco: Not on file Substance and Sexual Activity Alcohol use: Not Currently Drug use: Never Sexual activity: Not on file Other Topics Concern Not on file Social History Narrative Not on file Social Determinants of Health Financial Resource Strain: Not on file Food Insecurity: Not on file Transportation Needs: Not on file Physical Activity: Not on file Stress: Not on file Social Connections: Not on file Intimate Partner Violence: Not on file Housing Stability: Not on file No Known Allergies Results Review No image results found. No results found for: "GLUCOSE", "CALCIUM", "NA", "K", "CO2", "CL", "BUN", "CREATININE" No results found for: "WBC", "HGB", "HCT", "MCV", "PLT" Assessment and Plan Diagnoses and all orders for this visit: Renal mass - MRI abdomen w and wo contrast; Future - Creatinine, Serum; Future - CT chest wo IV contrast; Future - Basic metabolic panel; Future - CBC and differential; Future [facility]2024-08-13 17:48:43Scheduled Orders Health Maintenance Due Date Last Done Comments CT Colonography 1964 Colonoscopy 1964 FIT 1964 FOBT 1964 Sigmoidoscopy 1964 DTaP/Tdap/Td Vaccines (1 - Tdap) 10/28/1983 Hepatitis B Vaccines (1 of 3 - 19+ 3-dose series) 10/28/1983 Pap Smear 1985 Cervical Cancer Screening 1994 HPV/Cotest 1994 Mammogram 2004 Zoster Vaccines (1 of 2) 2014 Influenza Vaccine (#1) 2023 Colorectal Cancer Screening 01/03/2025 FIT-DNA 01/03/2025 01/03/2022, 01/03/2022 HIB Vaccines Aged Out No longer eligi ble based on patient's age to complete this topic HPV Vaccines Aged Out No longer eligi ble based on patient's age to complete this topic Hepatitis A Vaccines Aged Out No long er eligible based on patient's age to complete this topic IPV Vaccines Aged Out No longer eligi ble based on patient's age to complete this topic Meningococcal Vaccine Aged Out No heather silverio eligible based on patient's age to complete this topic Pneumococcal Vaccine: Pediatrics (0 to 5 Years) and At-Risk Patients (6 to 64 Years) Aged Out No longer eligible b ased on patient's age to complete this topic Rotavirus Vaccines Aged Out No longer eligible based on patient's age to complete this topic [facility]ob[facility] 17:48:43 Diagnosis Renal mass - Primary Unspecified disorder of kidney and ureter [id number] 17:48:43 [facility]xbmzlg2738-26-30 19:55:00 [facility] ([facility]) Discharge Summary REPORT#:[id number] REPORT STATUS: Signed DATE:11/15/20 TIME: 1954 PATIENT: ESPERANZA GRANGER UNIT #: [id number] ROOM/BED: 409-A : 64 AGE: 55 SEX: F ATTEND: Yolanda Phillips MD ADM AUTHOR: Yung Snyder MD * ALL edits or amendments must be made on the electronic/computer document * General Information Problem List/A P: 1. Status post biventricular pacemaker 2. Sick sinus syndrome due to SA node dysfunction 3. HTN (hypertension), benign Free Text A P: Pt remains in NSR o/n on tele. She's feeling well, no discharge over PM site. Pt had PM interrogated this Am and has been clear by Dr Mayfield for discharge. She will f/u Dr Phillips next week. Will resume home meds and 5 days prophylactic keflex Date of admission: Observation Start Date: 11/14/20 Date of admission: 11/14/20 Discharge date: 11/15/20 Discharge diagnosis: 1. SSS s/p PM implant 2. HTN, controlled 3. JULIANA 4. Chronic lumbar disc disease, controlled Hospital course: 55 yoF with symptomatic sick sinus syndrome presents for elective dual chamber PM implant. Post-procedure, she's observed o/n on tele which showed NSR rate in 70s. Pt discharged home in stable condition to f/u with her hospital chaplain Dr phillips early next week. pt instructed to resume home meds and to rest her left arm in sling when in bed. keflex x 5 days given for continue post-op prophylaxis Consultants: cardiology Pt. condition on discharge: fair, improved, stable Med Rec PCP PCP: PCP: Yolanda Phillips MD Med Rec Discharge meds: Stop taking the following medications: ACETAMINOPHEN ER (TYLENOL ARTHRITIS PAIN) 650 MG TAB.SA 650 MILLIGRAM ORAL TWICE DAILY. Continue taking these medications: LISINOPRIL/HCTZ (ZESTORETIC 20/12.5 MG) 20 MG-12.5 MG TAB 1 TABLET ORAL DAILY. SIMVASTATIN (ZOCOR) 20 MG TAB 20 MILLIGRAM ORAL DAILY. NAPROXEN SODIUM (ALEVE) 220 MG TAB 220 MILLIGRAM ORAL DAILY. Qty = 2 amLODIPine (NORVASC) 10 MG TAB 10 MILLIGRAM ORAL DAILY. CETIRIZINE (ZyrTEC) 5 MG TAB 5 MILLIGRAM ORAL DAILY. [IMMUNE SUPPORT] 2 CAPSULE ORAL DAILY. ASPIRIN EC (ECOTRIN) 81 MG TAB.EC 81 MILLIGRAM ORAL DAILY. Start taking the following new medications: ACETAMINOPHEN/CODEINE (TYLENOL WITH CODEINE #3 300/30 MG) 300 MG-30 MG TAB 1 TABLET ORAL EVERY 4 HOURS NEEDED. as needed for ACUTE PAIN Qty = 15 No Refills CEPHALEXIN (KEFLEX) 500 MG CAP 500 MILLIGRAM ORAL THREE TIMES A DAY. Qty = 15 No Refills Objective VS/I O Last Documented: Result Date Time Pulse Ox 94 11/15 1144 B/P 144/75 11/15 1144 B/P Mean 98.5 11/15 1144 Temp 98.1 11/15 1144 Pulse 69 11/15 1144 Resp 18 11/15 1144 O2 Delivery Room air 11/15 0401 O2 Flow Rate 2 11/14 1248 PATIENT WEIGHT: Weight (lb): Weight (oz): Weight (kg): General appearance: alert, awake Head/Eyes: clear cornea, normal conjunctiva/sclera ENT: moist mucosal membranes Neck: non-tender, no JVD Cardiovascular: regular rate rhythm, normal heart sounds, left anterior PM site clean and dried Respiratory: clear to auscultation, no distress, aerating well GI: soft, non-tender, no distention Extremities: moves all, no edema-all extremities, normal sensory Musculoskeletal: full range of motion, normal inspection Results Findings/Data: Laboratory Tests: 11/15 0739 Chemistry Sodium (137 - 145 MMOL/L) 138 Potassium (3.5 - 5.1 MMOL/L) 3.8 Chloride (98 - 107 MMOL/L) 104 Carbon Dioxide (22 - 30 MMOL/L) 25 Anion Gap (14 - 24 MMOL/L) 13 L BUN (7 - 17 MG/DL) 17 Creatinine (0.52 - 1.04 MG/DL) 0.80 Glomerular Filtr Rate > 60 Glucose (74 - 106 MG/DL) 106 Calcium (8.4 - 10.2 MG/DL) 8.8 Hematology WBC (3.8 - 9.8 K/MM3) 4.7 RBC (3.58 - 4.97 M/MM3) 4.13 Hgb (11.2 - 14.9 G/DL) 11.1 L Hct (33.2 - 43.5 %) 34.7 MCV (80.7 - 99.1 fL) 84 MCH (27.0 - 34.1 pg) 26.9 L MCHC (32.2 - 35.7 %) 32.0 L RDW (12.1 - 15.2 %) 15.6 H Plt Count (129 - 368 K/MM3) 175 MPV (7.4 - 10.4 fl) 10.2 Neut % (Auto) (43 - 75 %) 61.0 Lymph % (Auto) (14 - 44 %) 17.4 Preston % (Auto) (4 - 13 %) 18.9 H Eos % (Auto) (0 - 6 %) 1.9 Baso % (Auto) (0 - 2 %) 0.4 Neut # (Auto) (2.0 - 7.6 K/mm3) 2.84 Lymph # (Auto) (1.0 - 3.8 K/mm3) 0.81 L Preston # (Auto) (0.1 - 0.8 K/mm3) 0.88 H Eos # (Auto) (0.0 - 0.2 K/mm3) 0.09 Baso # (Auto) (0.0 - 0.2 K/mm3) 0.02 Immature Gran % (0.0 - 2.0 %) 0.4 Nucleated RBC % (0 - 1.0 %) 0.0 Nucleated RBCs # (Man) (0.0 - 0.1 K/mm3) 0.00 Radiology data: Recent Impressions: RADIOLOGY - XR CHEST 1V 11/15 0556 Report Impression - Status: SIGNED Entered: 11/15/2020 0650 IMPRESSION: Mild cardiomegaly with mild congestive changes bilaterally. Impression By: Yaima - Shweta Maddox MD Discharge Instructions PCP PCP: PCP: Yolanda Phillips MD )( Discharge to: Home/Self Care Discharge Instructions Additional Discharge Routines: [facility] Follow-Up )( Diet: Cardiac )( Activity: Light Duty Discharge management: less than 30 mins, face to face encounter Time spent: Time spent with patient (minutes): 20 Follow-up Appointments Consulting provider 1: Provider 1: Yolanda Phillips MD Specialty: CardiologyInterventional Consult follow up timeframe: In 1-2 weeks at 2000 RPT #:[id number] END OF [id number] 08:09:[id number] [address] PATIENT NAME: ESPERANZA GRANGER ADMIT DATE: 11/14/20 ACCOUNT NO: [id number] [facility] 55 REPORT TYPE: ELECTROCARDIOGRAM SEX: F ADMITTING PHYSICIAN:Yolanda Phillips MD ATTENDING PHYSICIAN:Yolanda Phillips MD Order: [id number] Test Reason : S/P PPI Test Date/Time Stamp: [place] Nov 15 2020 08:09:50 Blood Pressure : / mmHG Vent. Rate : 071 BPM Atrial Rate : 071 BPM P-R Int : 192 ms QRS Dur : 114 ms QT Int : 414 ms P-R-T Axes : 053 -22 141 degrees QTc Int : 449 ms Normal sinus rhythm Minimal voltage criteria for LVH, may be normal variant T wave abnormality, consider lateral ischemia Abnormal ECG When compared with ECG of 14-NOV-2020 13:22, Sinus rhythm has replaced Electronic atrial pacemaker Confirmed by YOLANDA PHILLIPS ([id number]) on 11/15/2020 8:18:32 AM Referred By: Yolanda Phillips Confirmed by:YOLANDA PHILLIPS at 0818 PATIENT NAME: ESPERANZA GRANGER 08:09:00 [id number] [place] [address] PATIENT NAME: ESPERANZA GRANGER ADMIT DATE: 11/14/20 ACCOUNT NO: [id number] ROOM NO: Z.[facility] AGE: 55 REPORT TYPE: ELECTROCARDIOGRAM SEX: F ADMITTING PHYSICIAN:Yolanda Phillips MD ATTENDING PHYSICIAN:Yolanda Phillips MD Order: [id number] Test Reason : S/P PPI Test Date/Time Stamp: MonNov 15 2020 08:09:50 Blood Pressure : / mmHG Vent. Rate : 071 BPM Atrial Rate : 071 BPM P-R Int : 192 ms QRS Dur : 114 ms QT Int : 414 ms P-R-T Axes : 053 -22 141 degrees QTc Int : 449 ms Normal sinus rhythm Minimal voltage criteria for LVH, may be normal variant T wave abnormality, consider lateral ischemia Abnormal ECG When compared with ECG of 14-NOV-2020 13:22, Sinus rhythm has replaced Electronic atrial pacemaker Confirmed by YOLANDA PHILLIPS ([id number]) on 11/17/2020 4:43:13 PM Referred By: Yolanda Phillips Confirmed by:YOLANDA PHILLIPS at 1643 PATIENT NAME: ESPERANZA GRANGER 06:49:00 [facility] Cardiology Progress Note REPORT#:[id number] REPORT STATUS: Signed DATE:11/15/20 TIME: 0649 PATIENT: ESPERANZA GRANGER UNIT #: [id number] ROOM[facility]BED: [facility] : 64 AGE: 55 SEX: F ATTEND: Yolanda Phillips MD ADM AUTHOR: Binh Mayfield MD * ALL edits or amendments must be made on the electronic/computer document * Subjective Chief Complaint: Symptomatic bradycardia. Objective General VS/I O: Vital Signs: Date Time Temp Pulse Resp B/P B/P Pulse O2 O2 Flow FiO2 Mean Ox Delivery Rate 11/15 0401 98.4 63 15 122/77 91.8 95 Room air 11/14 2314 99.0 79 14 112/73 86.2 94 Room air 11/14 1927 99.0 86 14 145/76 99.3 96 Room air 11/14 1544 98.2 76 18 127/72 90.5 96 Room air 11/14 1248 Nasal 2 cannula 11/14 1137 98.2 73 24 155/81 105.4 97 Nasal cannula PATIENT WEIGHT: Weight (lb): Weight (oz): Weight (kg): Medications: Active Meds + DC'd Last 24 Hrs Amlodipine Besylate (NORVASC) 10 MG DAILY PO Aspirin (ASPIRIN EC) 81 MG DAILY PO Atorvastatin Calcium (LIPITOR) 10 MG BEDTIME PO Hydrochlorothiazide (HYDRODIURIL) 12.5 MG DAILY PO Lisinopril (PRINIVIL) 20 MG DAILY PO Lisinopril/HCTZ (PRINZIDE 20-12.5 MG Tab) 1 EACH DAILY PO (DC) Cefazolin Sodium (ANCEF) 1,000 MG Q8H IV Sodium Chloride (SODIUM CHLORIDE 0.9%) 10 ML Loratadine (CLARITIN) 5 MG DAILY PO Acetaminophen (TYLENOL) 650 MG Q4H PRN PRN PO Hydrocodone Bitart/Acetaminophen (NORCO 5/325 TABLET (C-II)) 1 TAB Q4H PRN PRN PO Ondansetron HCl (ZOFRAN) 4 MG Q8H PRN PRN IV Lidocaine (XYLOCAINE 1%) 0 .STK-MED ONE .ROUTE (DC) Fentanyl Citrate (SUBLIMAZE (C-II)) 0 .STK-MED ONE .ROUTE (DC) Midazolam HCl (VERSED (C-IV)) 0 .STK-MED ONE .ROUTE (DC) Midazolam HCl (VERSED (C-IV)) 0 .STK-MED ONE .ROUTE (DC) Cefazolin Sodium (ANCEF) 0 .STK-MED ONE .ROUTE (DC) Fentanyl Citrate (SUBLIMAZE (C-II)) 0 .STK-MED ONE .ROUTE (DC) Lidocaine (XYLOCAINE 1%) 0 .STK-MED ONE .ROUTE (DC) Midazolam HCl (VERSED (C-IV)) 0 .STK-MED ONE .ROUTE (DC) Diazepam (VALIUM (C-IV)) 0 .STK-MED ONE .ROUTE (DC) Diazepam (VALIUM (C-IV)) 0 .STK-MED ONE PO (DC) Diphenhydramine HCl (BENADRYL) 0 .STK-MED ONE .ROUTE (DC) Cefazolin Sodium (ANCEF) 1,000 MG PREOP IV (DC) Sodium Chloride (SODIUM CHLORIDE 0.9%) 10 ML Sodium Chloride (SODIUM CHLORIDE 0.9%) 1,000 ML Q10H IV Physical Exam General appearance: alert, awake, oriented Head/Eyes: atraumatic, normocephalic ENT: moist mucosal membranes Neck: no JVD Musculoskeletal: full range of motion Neuro/TRAVELING AUDITOR: alert, oriented X 3, CN II-XII intact Skin: dry, intact Wound/incision: Location: Left precordium Site condition: dressing clean dry Psychiatry: normal affect, normal judgment/insight, normal mood Results Findings/Data: Laboratory Tests 11/14 0700 Chemistry Sodium (137 - 145 MMOL/L) 141 Potassium (3.5 - 5.1 MMOL/L) 3.9 Chloride (98 - 107 MMOL/L) 102 Carbon Dioxide (22 - 30 MMOL/L) 27 Anion Gap (14 - 24 MMOL/L) 16 BUN (7 - 17 MG/DL) 19 H Creatinine (0.52 - 1.04 MG/DL) 0.90 Glomerular Filtr Rate > 60 Glucose (74 - 106 MG/DL) 137 H Calcium (8.4 - 10.2 MG/DL) 9.4 Magnesium (1.6 - 2.3 MG/DL) 2.0 Triglycerides (150 - 199 MG/DL) 166 Cholesterol (<200 MG/DL) 162 LDL Cholesterol Measurd (0 - 99 MG/DL) 85 HDL Cholesterol (40 - 59 MG/DL) 36 L Laboratory Tests 11/14 0700 Coagulation INR (0.86 - 1.14) 1.1 APTT (25.1 - 36.5 SECONDS) 31.3 PT Patient/Control Mix (9.5 - 12.7 SECONDS) 12.4 Laboratory Tests 11/14 07 Hematology WBC (3.8 - 9.8 K/MM3) 6.3 RBC (3.58 - 4.97 M/MM3) 4.66 Hgb (11.2 - 14.9 G/DL) 12.6 Hct (33.2 - 43.5 %) 39.3 MCV (80.7 - 99.1 fL) 84 MCH (27.0 - 34.1 pg) 27.0 MCHC (32.2 - 35.7 %) 32.1 L RDW (12.1 - 15.2 %) 15.3 H Plt Count (129 - 368 K/MM3) 224 MPV (7.4 - 10.4 fl) 9.8 Neut % (Auto) (43 - 75 %) 73.3 Lymph % (Auto) (14 - 44 %) 9.7 L Preston % (Auto) (4 - 13 %) 12.2 Eos % (Auto) (0 - 6 %) 3.8 Baso % (Auto) (0 - 2 %) 0.5 Neut # (Auto) (2.0 - 7.6 K/mm3) 4.63 Lymph # (Auto) (1.0 - 3.8 K/mm3) 0.61 L Preston # (Auto) (0.1 - 0.8 K/mm3) 0.77 Eos # (Auto) (0.0 - 0.2 K/mm3) 0.24 H Baso # (Auto) (0.0 - 0.2 K/mm3) 0.03 Immature Gran % (0.0 - 2.0 %) 0.5 Nucleated RBC % (0 - 1.0 %) 0.0 Nucleated RBCs # (Man) (0.0 - 0.1 K/mm3) 0.00 Laboratory Tests 11/14 07 Chemistry Magnesium (1.6 - 2.3 MG/DL) 2.0 Laboratory Tests 11/14 0700 Coagulation APTT (25.1 - 36.5 SECONDS) 31.3 Radiology data: Recent Impressions: RADIOLOGY - XR CHEST 1V 11/14 1030 Report Impression - Status: SIGNED Entered: 11/14/2020 1054 IMPRESSION: Mild cardiomegaly. Dual-lead pacemaker. Impression By: GatitoEFTg Martinez MD RADIOLOGY - XR CHEST 1V 11/15 0556 Report Impression - Status: SIGNED Entered: 11/15/2020 0650 IMPRESSION: Mild cardiomegaly with mild congestive changes bilaterally. Impression By: Yaima Maddox MD Diagnosis, Assessment Plan Free Text DxA P Notes Free Text DxA P Notes: IMP: Symptomatic bradycardia. s/p PPM PLAN: PPM Interrogation d/c home if normal PPM function f/u with Dr. Phillips in one week. at 1550 RPT #:[id number] END OF [id number] 17:47:00 [facility] ([facility]) Hospitalist History Physical REPORT#:[id number] REPORT STATUS: Signed DATE:11/14/20 TIME: 1746 PATIENT: ESPERANZA GRANGER UNIT #: [id number] ROOM/BED: [address] : 64 AGE: 55 SEX: F ATTEND: Yolanda Phillips MD ADM AUTHOR: Yung Snyder MD * ALL edits or amendments must be made on the electronic/computer document * History of Present Illness HPI Chief complaint: s/p elective dual chamber pacemaker implant for SSS PCP: PCP: Yolanda Phillips MD HPI: 55 yoF with HTN and HLD presents today for elective dual chamber pacemaker implant for symptomatic sick sinus syndrome with long pauses. Pt has been c/o dyspnea and presyncope symptoms with activity for the past 6 weeks, suspect possible CAD. She had cardiac angiogram 09/19/20 which showed no e/o obstructive CAD. Her initial bradycardia with long pauses was initially thouoght to be due to BB use. However, after BB was stopped, pt still continue to have long pauses documented on Holter monitor. Her hospital chaplain Dr Phillips diagnosed her with Sick Sinus Syndrome brought her in for elective dual chamber PM implant today. pt resting comfortably with her left arm in sling post left chest PM implant. She's in NSR rate in 60s, denies cp/sob. 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 HTN in both parents. No premature CAD History Social History Smoking status: Smoking status for patients 13 years old or older: Never Smoker Medication/Allergy-Vaccine Hx Allergies: Coded Allergies: No Known Drug Allergies (08/02/13) Review of Systems Constitutional: Reports: generalized weakness. Denies: fever. Skin: Denies: bruising, diaphoresis. ENT: Denies: ear drainage, ear ringing, mouth pain. Respiratory: Denies: WALLACE (dyspnea on exertion), hemoptysis, parox nocturnal dyspnea. Cardiovascular: Denies: chest pain, edema, orthopnea. GI: Denies: abdominal pain, anorexia, diarrhea. : Denies: dysuria, flank pain, nocturia. Musculoskeletal: Denies: extremity pain, joint pain. All systems rev neg: except as noted Physical Exam VS/I O: Vital Signs Date Temp Pulse Resp B/P B/P Mean Pulse Ox FiO2 11/14 98.2 73-76 18- 127-155/72-81 90.5-105.4 96-97 Last Documented: Result Date Time Pulse Ox 96 11/14 1544 B/P 127/72 11/14 1544 B/P Mean 90.5 11/14 1544 O2 Delivery Room air 11/14 1544 Temp 98.2 11/14 1544 Pulse 76 11/14 1544 Resp 18 11/14 1544 O2 Flow Rate 2 11/14 1248 Patient Weight and BMI Weight (kg): BMI: General appearance: obese, alert, awake Head/Eyes: atraumatic, clear cornea, normal conjunctiva/sclera ENT: moist mucosal membranes, normal dentition Neck: full range of motion, non-tender Cardiovascular: normal heart sounds, regular rate rhythm Respiratory: aerating well, clear to auscultation, no distress Abdomen: non-tender, normal bowel sounds, soft Extremities: moves all, normal capillary refill, no edema Musculoskeletal: normal inspection, straight leg raise neg Neuro/TRAVELING AUDITOR: alert, oriented X 3, normal speech, no motor deficits Results Findings/Data: Laboratory Tests: 11/14 11/14 0700 0450 Chemistry Sodium (137 - 145 MMOL/L) 141 Potassium (3.5 - 5.1 MMOL/L) 3.9 Chloride (98 - 107 MMOL/L) 102 Carbon Dioxide (22 - 30 MMOL/L) 27 Anion Gap (14 - 24 MMOL/L) 16 BUN (7 - 17 MG/DL) 19 H Creatinine (0.52 - 1.04 MG/DL) 0.90 Glomerular Filtr Rate > 60 Glucose (74 - 106 MG/DL) 137 H Calcium (8.4 - 10.2 MG/DL) 9.4 Magnesium (1.6 - 2.3 MG/DL) 2.0 Triglycerides (150 - 199 MG/DL) 166 Cholesterol (<200 MG/DL) 162 LDL Cholesterol Measurd (0 - 99 MG/DL) 85 HDL Cholesterol (40 - 59 MG/DL) 36 L Coagulation INR (0.86 - 1.14) 1.1 APTT (25.1 - 36.5 SECONDS) 31.3 PT Patient/Control Mix (9.5 - 12.7 SECONDS) 12.4 Hematology WBC (3.8 - 9.8 K/MM3) 6.3 RBC (3.58 - 4.97 M/MM3) 4.66 Hgb (11.2 - 14.9 G/DL) 12.6 Hct (33.2 - 43.5 %) 39.3 MCV (80.7 - 99.1 fL) 84 MCH (27.0 - 34.1 pg) 27.0 MCHC (32.2 - 35.7 %) 32.1 L RDW (12.1 - 15.2 %) 15.3 H Plt Count (129 - 368 K/MM3) 224 MPV (7.4 - 10.4 fl) 9.8 Neut % (Auto) (43 - 75 %) 73.3 Lymph % (Auto) (14 - 44 %) 9.7 L Preston % (Auto) (4 - 13 %) 12.2 Eos % (Auto) (0 - 6 %) 3.8 Baso % (Auto) (0 - 2 %) 0.5 Neut # (Auto) (2.0 - 7.6 K/mm3) 4.63 Lymph # (Auto) (1.0 - 3.8 K/mm3) 0.61 L Preston # (Auto) (0.1 - 0.8 K/mm3) 0.77 Eos # (Auto) (0.0 - 0.2 K/mm3) 0.24 H Baso # (Auto) (0.0 - 0.2 K/mm3) 0.03 Immature Gran % (0.0 - 2.0 %) 0.5 Nucleated RBC % (0 - 1.0 %) 0.0 Nucleated RBCs # (Man) (0.0 - 0.1 K/mm3) 0.00 Serology SARS-CoV-2 Ag (Rapid) (Negative) NEGATIVE Laboratory Tests 11/14/20 0700: [Embedded Image Not Available] Radiology data: Recent Impressions: RADIOLOGY - XR CHEST 1V 11/14 1030 Report Impression - Status: SIGNED Entered: 11/14/2020 1054 IMPRESSION: Mild cardiomegaly. Dual-lead pacemaker. Impression By: Tg Shah MD Diagnosis, Assessment Plan Problem List/A P: 1. Status post biventricular pacemaker 2. Sick sinus syndrome due to SA node dysfunction 3. HTN (hypertension), benign Free Text A P: 1. SSS s/p PM implant 2. HTN, controlled 3. JULIANA 4. Chronic lumbar disc disease, controlled Monitor o/n on telemetry for any arrhythmia Post-op pain controlled resume home meds for HTN Possible d/c in AM on prophylactic abx at 1801 RPT #:[id number] END OF [id number] 13:22:[id number] [place] [address] PATIENT NAME: ESPERANZA GRANGER ADMIT DATE: 11/14/20 ACCOUNT NO: [id number] ROOM NO: Z.409 AGE: 55 REPORT TYPE: ELECTROCARDIOGRAM SEX: F ADMITTING PHYSICIAN:Yolanda Phillips MD ATTENDING PHYSICIAN:Yolanda Phillips MD Order: [id number] Test Reason : SSS/PPI Test Date/Time Stamp: MonNov 14 2020 13:22:23 Blood Pressure : / mmHG Vent. Rate : 066 BPM Atrial Rate : 066 BPM P-R Int : 162 ms QRS Dur : 114 ms QT Int : 448 ms P-R-T Axes : 029 -21 156 degrees QTc Int : 469 ms Electronic atrial pacemaker Left ventricular hypertrophy with repolarization abnormality Abnormal ECG When compared with ECG of 14-NOV-2020 10:07, Minimal criteria for Inferior infarct are no longer present T wave inversion no longer evident in Inferior leads Confirmed by YOLANDA PHILLIPS ([id number]) on 11/15/2020 7:35:32 AM Referred By: Yolanda Phillips Confirmed by:YOLANDA PHILLIPS at 0735 PATIENT NAME: ESPERANZA GRANGER 10:07:00 [id number] [place] [address] PATIENT NAME: ESPERANZA GRANGER ADMIT DATE: 11/14/20 ACCOUNT NO: [id number] ROOM NO: Z.DC4T AGE: 55 REPORT TYPE: ELECTROCARDIOGRAM SEX: F ADMITTING PHYSICIAN:Yolanda Phillips MD ATTENDING PHYSICIAN:Yolanda Phillips MD Order: [id number] Test Reason : SSS/PPI Test Date/Time Stamp: MonNov 14 2020 10:07:40 Blood Pressure : / mmHG Vent. Rate : 071 BPM Atrial Rate : 071 BPM P-R Int : 188 ms QRS Dur : 122 ms QT Int : 446 ms P-R-T Axes : 032 033 219 degrees QTc Int : 484 ms Normal sinus rhythm with sinus arrhythmia Cannot rule out Inferior infarct , age undetermined ST and T wave abnormality, consider lateral ischemia Abnormal ECG When compared with ECG of 14-NOV-2020 07:37, No significant change was found Confirmed by YOLANDA PHILLIPS ([id number]) on 11/14/2020 10:35:21 AM Referred By: Yolanda Phillips Confirmed by:YOLANDA PHILLIPS at 1035 PATIENT NAME: ESPERANZA GRANGER 10:07:00 [id number] [place] [id number] PATIENT NAME: ESPERANZA GRANGER ADMIT DATE: 11/14/20 ACCOUNT NO: [id number] ROOM NO: Z.409 AGE: 55 REPORT TYPE: ELECTROCARDIOGRAM SEX: F ADMITTING PHYSICIAN:Yolanda Phillips MD ATTENDING PHYSICIAN:Yolanda Phillips MD Order: [id number] Test Reason : SSS/PPI Test Date/Time Stamp: [facility] Nov 14 2020 10:07:40 Blood Pressure : / mmHG Vent. Rate : 071 BPM Atrial Rate : 071 BPM P-R Int : 188 ms QRS Dur : 122 ms QT Int : 446 ms P-R-T Axes : 032 033 219 degrees QTc Int : 484 ms Normal sinus rhythm with sinus arrhythmia Cannot rule out Inferior infarct , age undetermined ST and T wave abnormality, consider lateral ischemia Abnormal ECG When compared with ECG of 14-NOV-2020 07:37, No significant change was found Confirmed by YOLANDA PHILLIPS ([id number]) on 11/17/2020 4:43:19 PM Referred By: Yolanda Phillips Confirmed by:YOLANDA PHILLIPS at 1643 PATIENT NAME: ESPERANZA GRANGER 09:41:00 [id number] [address] PATIENT NAME: ESPERANZA GRANGER ADMIT DATE: 11/14/20 ACCOUNT NO: [id number] ROOM NO: Z.DC4T AGE: 55 REPORT TYPE: CARDIAC CATHETERIZATION REPORT SEX: F ADMITTING PHYSICIAN:Yolanda Phillips MD ATTENDING PHYSICIAN:Yolanda Phillips MD PROCEDURE DATE: 11/14/2020 [employer]: Yolanda Phillips MD TITLE OF THE PROCEDURE: Dual-chamber permanent pacemaker implantation. INDICATION FOR THE PROCEDURE: Symptomatic sick sinus syndrome with dizziness, presyncope, and long pauses up to 5.5 seconds. ESTIMATED BLOOD LOSS: Minimal. COMPLICATIONS: None. CONTRAST: None. ANESTHESIA: Conscious sedation with Versed and fentanyl. A 1% lidocaine for local anesthesia. FINAL DIAGNOSIS: Successful dual-chamber MRI compatible Mcdaniel permanent pacemaker implantation. PROCEDURE IN DETAIL: Please see enclosed report in the chart. Dictated By: Yolanda Phillips MD WT: CATH:JESSE/STEVE/OSMAN Conf#: [id number]/DID#: [id number] Authenticated by Yolanda Phillips MD On 11/14/2020 10:36:42 AM at 1036 PATIENT NAME: ESPERANZA GRANGER 07:37:00 [id number] [place] [address] PATIENT NAME: ESPERANZA GRANGER ADMIT DATE: 11/14/20 ACCOUNT NO: [id number] ROOM NO: AGE: 55 REPORT TYPE: ELECTROCARDIOGRAM SEX: F ADMITTING PHYSICIAN: ATTENDING PHYSICIAN:Yolanda Phillips MD Order: [id number] Test Reason : PRE ATHLETIC COACH PROCEDURE Test Date/Time Stamp: MonNov 14 2020 07:37:38 Blood Pressure : / mmHG Vent. Rate : 068 BPM Atrial Rate : 068 BPM P-R Int : 168 ms QRS Dur : 116 ms QT Int : 456 ms P-R-T Axes : 054 052 196 degrees QTc Int : 484 ms Normal sinus rhythm with sinus arrhythmia T wave abnormality, consider inferior ischemia Prolonged QT Abnormal ECG When compared with ECG of 19-SEP-2020 07:35, Questionable change in QRS axis ST no longer depressed in Lateral leads Confirmed by YOLANDA PHILLIPS ([id number]) on 11/14/2020 8:26:42 AM Referred By: Yolanda Phillips Confirmed by:YOLANDA PHILLIPS at 0826 PATIENT NAME: ESPERANZA GRANGER 07:19:00 [id number] [place] [address] PATIENT NAME: ESPERANZA GRANGER ADMIT DATE: ACCOUNT NO: [id number] ROOM NO: AGE: 55 REPORT TYPE: HISTORY AND PHYSICAL SEX: F ADMITTING PHYSICIAN: ATTENDING PHYSICIAN:Yolanda Phillips MD PATIENT NAME: ESPERANZA GRANGER ADMIT DATE:11/14/2020 ADMISSION DATE: 11/14/2020 REASON FOR ADMISSION: Symptomatic sick sinus syndrome with long pauses, for dual-chamber permanent pacemaker implantation. HISTORY OF PRESENT ILLNESS: Please see recent dictation from 09/19/2020 when the patient was admitted with dyspnea, suspected cardiomyopathy, long pauses on a Holter monitor with third-degree AV block. The patient at that time had a cardiac catheterization. It was thought that her heart block and pauses are due to beta-chichi therapy. She was taken off her beta-chichi therapy and did well for some time and then came back with significant symptoms of dizziness and presyncope. Event recorder showed significant pauses detailed below. So, the patient is here for dual-chamber permanent pacemaker implantation. The pauses are day and night and they are not related to the suspected sleep apnea. She is not on beta-chichi therapy at this time. Please see recent hospitalization for more details of her history and procedures. PAST MEDICAL HISTORY: Remarkable for hypertension, hyperlipidemia, osteoarthritis, lumbar disk disease, and history of UTIs. PAST SURGICAL HISTORY: Partial hysterectomy and arthritis. ALLERGIES: NO KNOWN DRUG ALLERGIES. MEDICATIONS: Reviewed and listed. SOCIAL HISTORY: There is no history of smoking. The patient drinks alcohol socially. There is no history of street drug use. FAMILY HISTORY: Positive for heart disease in several family members. REVIEW OF SYSTEMS: Remarkable for the above in addition to ringing in the ears, arthritis. No acute GI or symptoms. She has had episodes close to syncope, but no presyncope. DIAGNOSTIC DATA: Recent cardiac testing, cardiac catheterization on 09/19/2020 showed no angiographic coronary artery disease, elevated left ventricular end-diastolic pressure, normal ejection fraction. Renal arteries were normal on 09/19/2020. Carotid Doppler on 11/10/2020 showed less than 35% plaquing. Event recorder from 10/21/2020 to 10/28/2000 showed average heart rate of 57, the lowest heart rate of 26. She had 6 paroxysmal supraventricular tachycardia/PAT PATIENT NAME: ESPERANZA GRANGER runs with the longest is 7 beats at 120 beats per minute. She had 129 pauses with the longest is 5.5 seconds with junctional rhythm episodes. These episodes, most of them are symptomatic. EKG was sinus rhythm, borderline no acute abnormalities. Echocardiogram on 09/07/2020 showed [id number] mitral regurgitation, ejection fraction 50% to 55%. Nuclear stress test on 09/17/2020 showed ejection fraction of 41% with suspected anterolateral ischemia. Holter monitor on 09/08/2020 showed the average heart rate to be 42, heart rate goes down to 17 with several prolonged pauses, the longest was 4.1 seconds and episodes of third-degree AV block. CURRENT MEDICATIONS: Zyrtec, Immune Support, Aleve, Tylenol Arthritis, amlodipine 10 mg daily, lisinopril HCT 20/12.5 mg daily, atorvastatin 10 mg daily. PHYSICAL EXAMINATION: GENERAL: Reveals a pleasant middle-aged lady in no acute distress. VITAL SIGNS: Blood pressure 145/75, pulse 60 and regular, respiratory rate 18 and unlabored, and temperature afebrile. HEENT: Head, atraumatic and normocephalic. Eyes ENT examination within normal for age. NECK: Supple. No jugular venous distention, bruits, or lymphadenopathy. Normal upstroke. LUNGS: Clear and resonant. HEART: Regular rate and rhythm with II/ systolic ejection murmur at the left lower sternal border. No gallops. ABDOMEN: Soft, obese. No tenderness. No organomegaly. No masses or bruits. EXTREMITIES: 1+ edema, 2+ distal pulses. No cyanosis or clubbing. NEUROLOGIC: Alert and oriented x3. The examination appears to be nonfocal. LABORATORY DATA: Pending. Noninvasive cardiovascular workup described above. IMPRESSION: This is a 55-year-old lady with symptomatic sick sinus syndrome, significant pauses with junctional rhythm, pauses as long as 5.5 seconds with episodes of dizziness and presyncope. The patient is not on any medications to cause that. She has hypertensive heart disease and negative cardiac catheterization recently for coronary artery disease. The patient is here for dual-chamber permanent pacemaker implantation. RECOMMENDATION: Proceed with the above-mentioned procedure. The risks and benefits of the planned procedure were discussed in detail with the patient and she is willing to proceed. Rest as per orders. Dictated By: Yolanda Phillips MD WT: HP:DAYAN/STEVE/OSMAN Conf#: [id number]/DID#: [id number] Authenticated and Edited by Yolanda Phillips MD On 11/13/20 3:49:09 PM PATIENT NAME: ESPERANZA GRANGER at 0351 PATIENT NAME: ESPERANZA GRANGER 07:35:00 [id number] [place] [address] PATIENT NAME: ESPERANZA GRANGER ADMIT DATE: 09/19/20 ACCOUNT NO: [id number] ROOM NO: AGE: 54 REPORT TYPE: ELECTROCARDIOGRAM SEX: F ADMITTING PHYSICIAN: ATTENDING PHYSICIAN:Yolanda Phillips MD Order: [id number] Test Reason : CHEST PAIN Test Date/Time Stamp: MonSep 19 2020 07:35:33 Blood Pressure : / mmHG Vent. Rate : 055 BPM Atrial Rate : 055 BPM P-R Int : 194 ms QRS Dur : 112 ms QT Int : 558 ms P-R-T Axes : 000 214 187 degrees QTc Int : 533 ms Sinus bradycardia Right superior axis deviation ST and T wave abnormality, consider inferolateral ischemia Prolonged QT Abnormal ECG When compared with ECG of 19-SEP-2020 07:35, No significant change was found Confirmed by YOLANDA PHILLIPS ([id number]) on 09/19/2020 9:26:41 AM Referred By: Yolanda Phillips Confirmed by:YOLANDA PHILLIPS at 0926 PATIENT NAME: ESPERANZA GRANGER 07:10:00 [phone] [place] [address] PATIENT NAME: ESPERANZA GRANGER ADMIT DATE: 09/19/20 ACCOUNT NO: [id number] ROOM NO: AGE: 54 REPORT TYPE: CARDIAC CATHETERIZATION REPORT SEX: F ADMITTING PHYSICIAN: ATTENDING PHYSICIAN:Yolanda Phillips MD PROCEDURE DATE: 09/19/2020 [employer]: Yolanda Phillips MD TITLE OF THE PROCEDURE: 1. Left heart catheterization. 2. Selective bilateral renal angiograms. INDICATION FOR THE PROCEDURE: Dyspnea, abnormal nuclear stress test, arrhythmias, and malignant hypertension. ESTIMATED BLOOD LOSS: Minimal. COMPLICATIONS: None. CONTRAST: 80 mL. ANESTHESIA: Conscious sedation with Versed and fentanyl. A 1% lidocaine for local anesthesia. FINAL DIAGNOSES: Short left main, no angiographic coronary artery disease, elevated left ventricular end-diastolic pressure. The recommendation is medical therapy. On the renal angiograms, no renal artery stenosis, normal renal arteries. PROCEDURE IN DETAIL: After informed consent, the patient was brought to the cardiac catheterization lab in a stable fasting nonsedated state. She was prepped and draped in the usual sterile fashion. After conscious sedation, 1% lidocaine was administered to the right common femoral artery area for local anesthesia. A 6-Georgian sheath was placed in the right common femoral artery using standard techniques and fluoroscopy. After heparinization, left coronary angiogram showed short left main, normal coronaries, right coronary angiogram was normal, dominant vessel. Left ventricular angiogram showed ejection fraction of 65%, normal wall motion, no aortic valve gradient. The left ventricular end-diastolic pressure was 37. Selective renal angiogram showed no renal artery stenosis and a limited abdominal aortogram was carried out around the renal arteries was normal. The right groin was sealed using Angio-Seal. There were no complications. The patient tolerated the procedure well and was transferred back to the [facility] area for observation and treatment of hypertension to be discharged later on today on medical therapy and risk factor modification. PATIENT NAME: ESPERANZA GRANGER Dictated By: Yolanda Phillips MD WT: CATH:JESSE/STEVE/OSMAN Conf#: [id number]/DID#: [id number] Authenticated by Yolanda Phillips MD On 09/19/2020 08:12:53 AM at 0813 PATIENT NAME: ESPERANZA GRANGER 05:13:00 [id number] [place] [id number] PATIENT NAME: ESPERANZA GRANGER ADMIT DATE: 09/19/20 ACCOUNT NO: [id number] ROOM NO: AGE: 54 REPORT TYPE: ELECTROCARDIOGRAM SEX: F ADMITTING PHYSICIAN: ATTENDING PHYSICIAN:Yolanda Phillips MD Order: [id number] Test Reason : CAD Test Date/Time Stamp: MonSep 19 2020 05:13:26 Blood Pressure : / mmHG Vent. Rate : 059 BPM Atrial Rate : 059 BPM P-R Int : 188 ms QRS Dur : 116 ms QT Int : 478 ms P-R-T Axes : 074 -19 142 degrees QTc Int : 473 ms Sinus bradycardia Left ventricular hypertrophy with QRS widening ST and T wave abnormality, consider lateral ischemia Prolonged QT Abnormal ECG No previous ECGs available Confirmed by YOLANDA PHILLIPS ([id number]) on 09/19/2020 6:26:54 AM Referred By: Yolanda Phillips Confirmed by:YOLANDA PHILLIPS at 0627 PATIENT NAME: ESPERANZA GRANGER 05:13:00 [id number] [address] PATIENT NAME: ESPERANZA GRANGER ADMIT DATE: 09/19/20 ACCOUNT NO: [id number] ROOM NO: AGE: 55 REPORT TYPE: ELECTROCARDIOGRAM SEX: F ADMITTING PHYSICIAN: ATTENDING PHYSICIAN:Yolanda Phillips MD Order: [id number] Test Reason : CAD Test Date/Time Stamp: MonSep 19 2020 05:13:26 Blood Pressure : / mmHG Vent. Rate : 059 BPM Atrial Rate : 059 BPM P-R Int : 188 ms QRS Dur : 116 ms QT Int : 478 ms P-R-T Axes : 074 -19 142 degrees QTc Int : 473 ms Sinus bradycardia Left ventricular hypertrophy with QRS widening ST and T wave abnormality, consider lateral ischemia Prolonged QT Abnormal ECG No previous ECGs available Confirmed by YOLANDA PHILLIPS ([id number]) on 11/17/2020 4:43:44 PM Referred By: Yolanda Phillips Confirmed by:YOLANDA PHILLIPS at 1643 PATIENT NAME: ESPERANZA GRANGER 14:25:00 [id number] [place] [address] PATIENT NAME: ESPERANZA GRANGER ADMIT DATE: ACCOUNT NO: [id number] ROOM NO: AGE: 54 REPORT TYPE: PREOP HISTORY AND PHYSICAL SEX: F ADMITTING PHYSICIAN: ATTENDING PHYSICIAN:Yolanda Phillips MD PATIENT NAME: ESPERANZA GRANGER ADMIT DATE:09/19/2020 ADMISSION DATE: 09/19/2020 [employer]: Yolanda Phillips MD REASON FOR ADMISSION: Dyspnea, ischemic cardiomyopathy, abnormal nuclear stress test, long pauses on the Holter monitor with episodes of third-degree AV block, for cardiac catheterization and possible revascularization. HISTORY OF PRESENT ILLNESS: Esperanza is a 54-year-old lady who is started coming to my practice on 09/07/2020 with complaints of dyspnea on mild exertion with palpitations and hypertensive heart disease. Echocardiogram showed hypertensive heart disease, ejection fraction around 50%. She was placed on a low-dose beta chichi therapy. She had a Holter monitor that showed bradycardia, average heart rate was 42, heart rate goes down to 17 at night with third-degree AV block and pauses up to 4.1 seconds, so she was taken off the beta chichi immediately and had a chemical stress test on September 17 that showed ejection fraction of 41%, a picture of cardiomyopathy and severe anterolateral ischemia. Given this information and the patient's risk factors, she is here for cardiac catheterization and possible revascularization. The patient was referred initially to see me because of cardiomegaly on a chest x-ray and symptoms of dyspnea. PAST MEDICAL HISTORY: Remarkable for hypertension, hyperlipidemia, osteoarthritis, lumbar disk disease, and history of urinary tract infection. PAST SURGICAL HISTORY: She has had partial hysterectomy and arthritis. ALLERGIES: NO KNOWN DRUG ALLERGIES. MEDICATIONS: She is currently not on any cardiac medications. She takes Tylenol Arthritis and Aleve. I took her off the bisoprolol and hydrochlorothiazide. SOCIAL HISTORY: There is no history of smoking. The patient drinks alcohol occasionally. There is no history of street drug use. FAMILY HISTORY: Positive for heart disease in several family members. REVIEW OF SYSTEMS: Remarkable for the above in addition to ringing in the ears, arthritis. No acute GI or symptoms. No TIAs or strokes. No syncope. PATIENT NAME: ESPERANAZ GRANGER PHYSICAL EXAMINATION: GENERAL: Reveals a pleasant middle-aged lady in no acute distress. VITAL SIGNS: Blood pressure 156/80, pulse 61 and regular, respiratory rate 18 and unlabored, and temperature afebrile. HEENT: Head is atraumatic and normocephalic. Eyes and ENT examination within normal for age. NECK: Supple. No jugular venous distention, bruits, or lymphadenopathy. Normal upstroke. LUNGS: Clear and resonant. HEART: Regular rate and rhythm with II/ systolic ejection murmur at the left lower sternal border. No gallops. ABDOMEN: Soft. No tenderness, no organomegaly, no masses or bruits. The abdomen is obese. EXTREMITIES: A 1+ edema, 2+ distal pulses. No cyanosis or clubbing. NEUROLOGIC: Alert and oriented x3. The examination appears to be nonfocal. LABORATORY DATA: Pending. Noninvasive cardiovascular workup enclosed. IMPRESSION: This is a 54-year-old lady with hypertensive heart disease, mitral regurgitation, who was very sensitive to beta chichi therapy at low dose with bradycardia and complete heart block and long pauses. She has cardiomegaly by x-ray and echo. She has cardiomyopathy by the nuclear and ischemia. She is here for left heart catheterization to assess for possible revascularization. RECOMMENDATION: To proceed with the above-mentioned procedures. The risks and benefits of the planned procedure were discussed in detail with the patient and she is willing to proceed. Rest as per orders. Dictated By: Yolanda Phillips MD WT: PREOPHP:DAYAN/STEVE/OSMAN Conf#: [id number]/DID#: [id number] Authenticated and Edited by Yolanda Phillips MD On 09/18/20 7:52:10 PM at 1953 PATIENT NAME: ESPERANZA GRANGER
--- NOTE | 2024-01-24 14:42 | RAD REPORT ---
EXAM:Extremity Venous [employer] HISTORY: Right leg pain TECHNIQUE: Sonographic evaluation right lower extremity performed.Grayscale, color and spectral maksim sis performed on all vessels COMPARISON: None. FINDINGS: Right common femoral, superficial femoral, greater saphenous, popliteal and posterior tibial veins ar e compressible and demonstrate augmentation. Doppler demonstrates good flow. IMPRESSION: No evidence of deep venous thrombosis involving the right lower extremity.
[2024-01-24] MEDS ORDERED: MORPHINE 4 MG/ML SYR ONE ×3 (14:43→18:33)
[2024-01-24] MEDS ORDERED: ONDANSETRON 4 MG/2 ML VIAL ONE (14:43)
--- NOTE | 2024-01-24 14:47 | RAD REPORT ---
EXAM:Ankle Right 3 View CLINICAL HISTORY: Ankle pain FINDINGS: No fracture or dislocation seen. Mild osteoarthritis involves ankle. Large calcaneal spurs are present. Soft tissue swelling
[2024-01-24 15:03] LABS: Absolute Lymphocytes (CBC) 1.2 K/uL (0.7-4.9); Absolute Monocytes 0.9 K/uL (0.1-1.3); Absolute Neutrophil 6.9 K/uL (1.8-8.0); Basophils % 0.4 % (0-1.3); Eosinophils % 0.3 % (0-4.4); Hematocrit 35.2 % (36.0-45.0); Hemoglobin 11.9 g/dL (12.0-15.0); Lymphocytes % 13.6 % (15.3-44.8); MCH 27.7 pg (27.0-35.0); MCV 81.5 fL (80-100); MPV 7.7 fL (7.6-11.3); Monocytes % 9.4 % (3.3-12.3); Neutrophils % 76.3 % (41.7-73.7); Platelets 222 thou/uL (152-406); RBC Red Blood Cell Count 4.31 M/uL (3.86-4.86); Red Cell Distribution Width 14.1 % (12.1-15.2)
[2024-01-24 15:16] LABS: Albumin 3.4 g/dL (3.4-5.0); Albumin/Globulin Ratio 0.9 (1.1-1.8); Anion Gap 9.7 mEq/L (5.0-15.0); Bilirubin Total 0.6 mg/dL (0.2-1.0); C-Reactive Protein 92.1 mg/L (<3.00); Globulin 3.8 g/dL (2.3-3.5); Potassium 3.7 mEq/L (3.5-5.1); Protein, Total 7.2 g/dL (6.4-8.2); Uric Acid 6.9 mg/dL (2.6-6.0)
[2024-01-24] MEDS ORDERED: LIDOCAINE 1% 20 ML MDV ONE (15:48)
[2024-01-24 17:31] LABS: Appearance TURBID (CLEAR); Body Fluid Source SYNOVIAL; Color of fluid Yellow (COLORLESS); Tube # SINGLE
[2024-01-24 18:12] LABS: Body Fluid Lymphocytes 1 %; Body Fluid WBC 3641 /mm^3; Fluid Total Cells Count 100
--- NOTE | 2024-01-24 18:38 | ER ---
Nurse's Notes [facility] Name: Esperanza Granger Age: 58 yrs Sex: Female : 1965 Arrival Date: 01/24/2024 Time: 13:00 Bed 16 Private MD: Diagnosis: Gout, unspecified Presentation: 01/23 13:20 Chief complaint: Patient states: she is having pain in her right ankle/foot. patient ap3 denies any trauma to the area or falls. Coronavirus screen: At this time, the client does not indicate any symptoms associated with coronavirus-19. Ebola Screen: No symptoms or risks identified at this time. Risk Assessment: Do you want to hurt yourself or someone else? Patient reports no desire to harm self or others. Onset of symptoms is unknown. 13:20 Method Of Arrival: Wheelchair ap3 13:24 Initial Sepsis Screen: Does the patient meet any 2 criteria? No. Patient's initial ap3 sepsis screen is negative. Does the patient have a suspected source of infection? No. Patient's initial sepsis screen is negative. 13:24 Acuity: MINERVA 3 ap3 Triage Assessment: 13:25 General: Appears uncomfortable, Behavior is calm, cooperative, appropriate for age. ap3 Pain: Complains of pain in right foot Pain currently is 4 out of 10 on a pain scale. at worst was 10 out of 10 on a pain scale. Neuro: Level of Consciousness is awake, alert, obeys commands, Oriented to person, place, time, situation, Appropriate for age. Cardiovascular: Patient's skin is warm and dry. Respiratory: Airway is patent Respiratory effort is even, unlabored, Respiratory pattern is regular, symmetrical. Historical: - Allergies: 13:25 No Known Allergies; ap3 - PMHx: 13:25 Diabetes mellitus; Hypertensive disorder; cancer; ap3 - PSHx: 13:25 right kidney removal; pacemaker; ap3 - Immunization history:: Client reports having NOT received the Covid vaccine. - Infectious Disease History:: Denies. - Social history:: Smoking status: Patient denies any tobacco usage or history of. Screenin:26 Abuse screen: Denies threats or abuse. Nutritional screening: No deficits noted. ap3 Tuberculosis screening: No symptoms or risk factors identified. 15:38 [facility] ED Fall Risk Assessment (Adult) History of falling in the last 3 months, ph including since admission No falls in past 3 months (0 pts) Confusion or Disorientation No (0 pts) Intoxicated or Sedated No (0 pts) Impaired Gait No (0 pts) Mobility Assist Device Used No (0 pt) Altered Elimination No (0 pt) Score/Fall Risk Level 0 - 2 = Low Risk Oriented to surroundings, Maintained a safe environment, Hourly rounding (assess needs \T\ fall precautionary measures) done. Assessment: 15:38 General: Appears in no apparent distress. uncomfortable, Behavior is calm, cooperative. ph Pain: Complains of pain in anterior aspect of right ankle. Neuro: Level of Consciousness is awake, alert, obeys commands, Oriented to person, place, time, situation. Cardiovascular: Capillary refill < 3 seconds in bilateral fingers Patient's skin is warm and dry. Respiratory: Airway is patent Respiratory effort is even, unlabored. Derm: Skin is pink, warm \T\ dry. Musculoskeletal: Circulation, motion, and sensation intact. Range of motion: intact in all extremities, Swelling present in right ankle. 16:30 Reassessment: Patient appears in no apparent distress at this time. Patient and/or ph family updated on plan of care and expected duration. Pain level reassessed. Patient is alert, oriented x 3, equal unlabored respirations, skin warm/dry/pink. Dr Singh at bedside for joint aspiration of R ankle. 19:30 Reassessment: Patient appears in no apparent distress at this time. Patient and/or ph family updated on plan of care and expected duration. Pain level reassessed. Patient is alert, oriented x 3, equal unlabored respirations, skin warm/dry/pink. Vital Signs: 13:24 BP 146 / 62; Pulse 74; Resp 18; Temp 98.5(O); Pulse Ox 96% on R/A; Weight 92.08 kg; ap3 Pain 4/10; 15:39 BP 144 / 73; Pulse 74; Resp 18; Pulse Ox 95% on R/A; ph 16:30 BP 139 / 69; Pulse 81; Resp 16; Pulse Ox 98% on R/A; ph 17:47 BP 129 / 85; Pulse 77; Resp 18; Pulse Ox 93% on R/A; ph 19:10 BP 132 / 58; Pulse 71; Resp 18; Pulse Ox 95% on R/A; ph 13:24 Pain Scale: Adult ap3 ED Course: 13:03 Patient arrived in ED. ra3 13:17 Mary Ellen Sandoval FNP-C [facility]. kb 13:17 Joel Chang MD is Attending Physician. kb 13:25 Triage completed. ap3 13:26 Arm band placed on left wrist. ap3 14:04 US Extremity Venous Unilateral Ltd In Process Unspecified. EDMS 14:08 Ankle Right 3 View XRAY In Process Unspecified. EDMS 14:37 Deepti Sebastian, RN is Primary Nurse. ph 14:50 Initial lab(s) drawn, by me, sent to lab. ph 15:19 Abran Singh MD is Attending Physician. kb 15:38 Inserted saline lock: 22 gauge in left antecubital area, using aseptic technique. Blood ph collected. Flushed with 10 mL NS. 15:40 Patient has correct armband on for positive identification. Bed in low position. Call ph light in reach. Side rails up X 1. Pulse ox on. NIBP on. 15:40 No provider procedures requiring assistance completed. ph 16:30 Assist provider with aspiration of right ankle using 18 gauge needle, Lidocaine, fluid ph removed was yellow, Removed 3 ml's of fluid Set up for procedure. Performed by Abran Singh MD Dressed with band aid, Patient tolerated well. 19:30 Provided Education on: discharge instructions.. ph 19:30 IV discontinued, intact, bleeding controlled, No redness/swelling at site. Pressure ph dressing applied. Administered Medications: 14:55 Drug: morphine IVP or IV 4 mg IVP once over 4 mins Route: IVP; Infused Over: 4 mins; ph Site: left antecubital; 15:37 Follow up: Response: No adverse reaction; Pain is decreased; RASS: Alert and Calm (0) ph 14:55 Drug: Ondansetron IVP 4 mg IVP once; over 2 minutes Route: IVP; Site: left antecubital; ph 15:38 Follow up: Response: No adverse reaction ph 16:11 Drug: Lidocaine Infiltration (1 %) 1 vials 5 ml Infiltration once; to bedside Volume: 5 ph ml; Route: Infiltration; 18:13 Follow up: Response: No adverse reaction ph 16:12 Drug: morphine IVP or IV 4 mg IVP once over 4 mins Route: IVP; Infused Over: 4 mins; ph Site: left antecubital; 16:30 Follow up: Response: No adverse reaction; Pain is decreased ph 18:45 Drug: morphine IVP or IV 4 mg IVP once over 4 mins Route: IVP; Infused Over: 4 mins; ph Site: left antecubital; 19:05 Follow up: Response: No adverse reaction ph 19:14 Drug: Decadron - Dexamethasone IVP 10 mg IVP once Route: IVP; Site: left antecubital; jb4 19:14 Follow up: Response: Medication administered at discharge. jb4 19:14 Drug: Cephalexin PO 500 mg PO once Route: PO; jb4 19:14 Follow up: Response: Medication administered at discharge. jb4 19:14 Drug: [place] PO 10 mg-325 mg 1 tabs PO once Route: PO; jb4 19:15 Follow up: Response: Medication administered at discharge. jb4 Medication: 15:40 VIS not applicable for this client. ph Outcome: 18:38 Discharge ordered by . kb 19:30 Discharged to home via wheelchair, with family, ph 19:30 Condition: stable 19:30 Discharge instructions given to patient, Instructed on discharge instructions, follow up and referral plans. medication usage, Demonstrated understanding of instructions, follow-up care, medications, Prescriptions given X 2, 19:31 Patient left the ED. ph Signatures: Dispatcher [employer] EDMary Ellen Kimball, WAYBILL CLERK-C WAYBILL CLERK-Deepti Ruiz RN RN ph Jovan Ferreira RN RN jb4 Farzaneh Vaughan RN RN ap3 Lauren Hopper ra3 Corrections: (The following items were deleted from the chart) 15:37 15:36 morphine IVP or IV 4 mg IVP in left antecubital over 4 mins ph ph 15:37 15:37 Ondansetron IVP 4 mg IVP in left antecubital ph ph
--- NOTE | 2024-01-24 18:38 | EDPHYS ---
Physician Documentation [facility] Name: Esperanza Granger Age: 58 yrs Sex: Female : 1965 Arrival Date: 01/24/2024 Time: 13:00 Bed 16 Private MD: ED Physician Abran Singh HPI: 01/23 13:27 This 58 yrs old Female presents to ER via Wheelchair with complaints of Foot Pain - kb Right with swelling. 13:27 Pt is a 58 year old female who presents with swelling, pain, tenderness, and erythema kb to right ankle that started upon waking 2 days ago. Denies fever. Reports pain with any movement of foot or ankle. Pain radiates up leg with movement. Denies injury or trauma. Pt had nephrectomy 4 weeks ago. . Historical: - Allergies: 13:25 No Known Allergies; ap3 - PMHx: 13:25 Diabetes mellitus; Hypertensive disorder; cancer; ap3 - PSHx: 13:25 right kidney removal; pacemaker; ap3 - Immunization history:: Client reports having NOT received the Covid vaccine. - Infectious Disease History:: Denies. - Social history:: Smoking status: Patient denies any tobacco usage or history of. ROS: 13:29 Constitutional: As per HPI kb Exam: 13:29 Constitutional: This is a well developed, well nourished patient who is awake, alert, kb and in no acute distress. Head/Face: Normocephalic, atraumatic. ENT: Moist Mucous membranes Cardiovascular: Regular rate Respiratory: Respirations even and unlabored. No increased work of breathing. Talking in full sentences Neuro: Awake and alert, GCS 15, oriented to person, place, time, and situation. 13:29 Musculoskeletal/extremity: Extremities: grossly normal except: noted in the anterior aspect of right ankle: decreased ROM, erythema, pain, swelling, tenderness, ROM: limited active range of motion, limited active range of motion due to pain, Circulation is intact in all extremities. Sensation intact. Weight bearing: is unable to bear weight, Vital Signs: 13:24 BP 146 / 62; Pulse 74; Resp 18; Temp 98.5(O); Pulse Ox 96% on R/A; Weight 92.08 kg; ap3 Pain 4/10; 15:39 BP 144 / 73; Pulse 74; Resp 18; Pulse Ox 95% on R/A; ph 16:30 BP 139 / 69; Pulse 81; Resp 16; Pulse Ox 98% on R/A; ph 17:47 BP 129 / 85; Pulse 77; Resp 18; Pulse Ox 93% on R/A; ph 19:10 BP 132 / 58; Pulse 71; Resp 18; Pulse Ox 95% on R/A; ph 13:24 Pain Scale: Adult ap3 Procedures: 16:44 Joint Treatment: Aspiration of right ankle using 22g needle. Removed 3 ml's of clear rn fluid, yellow fluid, Specimen sent to lab. Patient tolerated well. Pt consented, cleansed with betadine, lidocaine used for anesthesia. Ultrasound used for guidance. Tolerated well. . MDM: 13:17 Medical Screening Exam initiated kb 14:01 Data reviewed: vital signs, nurses notes. kb 18:36 Differential diagnosis: cellulitis, gout, septic arthritis. Management of patient was kb discussed with the following: Dr Singh, who saw pt as well.. Counseling: I had a detailed discussion with the patient and/or guardian regarding the historical points, exam findings, and any diagnostic results supporting the discharge/admit diagnosis, lab results, radiology results, the need for outpatient follow up, a family practitioner, to return to the emergency department if symptoms worsen or persist or if there are any questions or concerns that arise at home. 01/23 13:23 Order name: CBC with Diff; Complete Time: 15:15 ap3 01/23 13:23 Order name: CMP; Complete Time: 15:18 ap3 01/23 13:23 Order name: Uric Acid; Complete Time: 15:18 ap3 01/23 14:07 Order name: C-Reactive Protein; Complete Time: 15:18 EDMS 01/23 16:39 Order name: Body Fluid Culture kb 01/23 16:39 Order name: Fluid Cell Count,Body; Complete Time: 18:13 kb 01/23 16:39 Order name: Fluid Crystals; Complete Time: 17:23 kb 01/23 13:23 Order name: US Extremity Venous Unilateral Ltd; Complete Time: 14:43 ap3 01/23 13:23 Order name: Ankle Right 3 View XRAY; Complete Time: 14:47 ap3 01/23 13:23 Order name: IV Start; Complete Time: 15:36 ap3 Administered Medications: 14:55 Drug: morphine IVP or IV 4 mg IVP once over 4 mins Route: IVP; Infused Over: 4 mins; ph Site: left antecubital; 15:37 Follow up: Response: No adverse reaction; Pain is decreased; RASS: Alert and Calm (0) ph 14:55 Drug: Ondansetron IVP 4 mg IVP once; over 2 minutes Route: IVP; Site: left antecubital; ph 15:38 Follow up: Response: No adverse reaction ph 16:11 Drug: Lidocaine Infiltration (1 %) 1 vials 5 ml Infiltration once; to bedside Volume: 5 ph ml; Route: Infiltration; 18:13 Follow up: Response: No adverse reaction ph 16:12 Drug: morphine IVP or IV 4 mg IVP once over 4 mins Route: IVP; Infused Over: 4 mins; ph Site: left antecubital; 16:30 Follow up: Response: No adverse reaction; Pain is decreased ph 18:45 Drug: morphine IVP or IV 4 mg IVP once over 4 mins Route: IVP; Infused Over: 4 mins; ph Site: left antecubital; 19:05 Follow up: Response: No adverse reaction ph 19:14 Drug: Decadron - Dexamethasone IVP 10 mg IVP once Route: IVP; Site: left antecubital; jb4 19:14 Follow up: Response: Medication administered at discharge. jb4 19:14 Drug: Cephalexin PO 500 mg PO once Route: PO; jb4 19:14 Follow up: Response: Medication administered at discharge. jb4 19:14 Drug: [place] PO 10 mg-325 mg 1 tabs PO once Route: PO; jb4 19:15 Follow up: Response: Medication administered at discharge. jb4 Disposition: 01/24 09:30 Co-signature as Attending Physician, Abran Singh MD I reviewed the patient's care rn provided by the Advanced Practice Provider and agree with the diagnosis and treatment plan. Disposition Summary: 01/24/24 18:38 Discharge Ordered Notes: Location: Home kb Condition: Stable kb Diagnosis - Gout, unspecified kb Followup: kb - With: Emergency Department - When: As needed - Reason: Worsening of condition Followup: kb - With: Private Physician - When: 2 - 3 days - Reason: Recheck today's complaints, Continuance of care, Re-evaluation by your physician Discharge Instructions: - Discharge Summary Sheet kb - Gout, [id number] kb Forms: - Medication Reconciliation Form kb - Antibiotic Education kb - Prescription Opioid Use kb - Patient Portal Instructions kb - Leadership Thank You Letter kb Prescriptions: - Cephalexin 500 mg Oral Capsule - take 1 capsule ORAL route every 8 hours for 10 days; 30 capsule; Refills: 0, kb Product Selection Permitted - Prednisone 20 mg Oral Tablet - take 1 tablet ORAL route once daily for 5 days; 5 tablet; Refills: 0, Product kb Selection Permitted Signatures: Dispatcher [employer] EDMary Ellen Kimball FNP-C FNP-Ckb Nieto, Roman, MD MD rn Deepti Sebastian RN RN ph Jovan Ferreira, RN RN jb4 Farzaneh Vaughan RN RN ap3 Corrections: (The following items were deleted from the chart) 01/23 13:29 13:27 Pt is a 58 year old female who presents with swelling, pain, tenderness, and kb erythema to right ankle that started upon waking 2 days ago. Denies fever. Reports pain with any movement of foot or ankle. Pain radiates up leg with movement. Denies injury or trauma . kb 14:07 13:27 C-REACTIVE PROTEIN+C.LAB.BRZ ordered. EDMS EDMS
[2024-01-24] MEDS ORDERED: HYDROCODONE/APAP 10/325 TAB ONE (19:09)
[2024-01-24] MEDS ORDERED: dexAMETHasone 10 MG/ML VIAL ONE (19:09)
[2024-01-24] MEDS ORDERED: CEPHALEXIN 250 MG CAP ONE (19:09)
[2024-01-25 02:07] VITALS: TEMP 98.5
[2024-01-25 02:25] VITALS: BP 132/58; O2SAT 95
== END 2024-01-24 19:31 | disposition home or self-care (01) ==
LOC: ER 13:00
DX: M10.9 Gout, unspecified (principal); E11.9 Type 2 diabetes mellitus without complications; I10 Essential (primary) hypertension; Z95.0 Presence of cardiac pacemaker
CPT/HCPCS: 87070; 85025; 36415; 89050; 84550; 80053; 89060; 86140; 73610; 93971; 96375; 96374; 99285; 20605; J2003; J1100; J2405